=== PATIENT | female | born 1975 | race African-American/Black ===

== ENCOUNTER → 2021-12-25 11:42 | Outpatient (BNVA) | payer OTHER, SELFPAY | PROVIDERS: Visit Provider Surgery | DX: Z13.89 Encounter for screening for other disorder (principal) ==

== ENCOUNTER → 2022-01-01 15:30 | Outpatient (BNVA) | payer OTHER, SELFPAY | PROVIDERS: Visit Provider Counselor Mental Health | DX: F33.1 Major depressive disorder, recurrent, moderate (principal); E66.01 Morbid (severe) obesity due to excess calories | CPT/HCPCS: 90791 ==

== ENCOUNTER 2022-01-07 10:18 | Outpatient (REF) | payer OTHER, SELFPAY ==
--- NOTE | 2022-01-07 10:28 | ECG_ITS ---
Test Reason : E66.01 Blood Pressure : / mmHG Vent. Rate : 085 BPM Atrial Rate : 085 BPM P-R Int : 132 ms QRS Dur : 078 ms QT Int : 400 ms P-R-T Axes : 076 054 070 degrees QTc Int : 476 ms Normal sinus rhythm Cannot rule out Anterior infarct , age undetermined Abnormal ECG No previous ECGs available Referred By: Raymundo Herrera Electronically Signed By:LUIS MATOS MD
[2022-01-07 11:25] LABS: Monocytes Absolute Auto 0.6 X10*3/uL (0.1-1.2); SCAN SMEAR FLAG 1
[2022-01-07 11:28] LABS: Basophils Absolute Auto 0.1 X10*3/uL (0.0-0.2); Eosinophils Absolute Auto 0.2 X10*3/uL (0.0-0.4); Eosinophils Percent Auto 3.1 % (0-4); Hematocrit 30.2 % (37.0-47.0); Hemoglobin 7.5 g/dl (12.0-16.0); Imm Gran Abs Auto 0.02 X10*3/uL (0.00-0.03); Imm Gran Pct Auto 0.4 % (0.0-0.4); Lymphocytes Absolute Auto 1.4 X10*3/uL (1.2-4.9); Lymphocytes Percent Auto 27.6 % (20-40); MANUAL DIFF FLAG SCAN; Mean Corpuscular HGB Conc 24.8 g/dl (31.0-35.0); Mean Corpuscular Hemoglobin 14.2 pg (27.0-33.0); Monocytes Percent Auto 11.8 % (2-11); Neutrophils Absolute Auto 2.9 x10*3/uL (2.0-8.3); Neutrophils Percent Auto 56.1 % (45-73); PLT CLUMP 1; Red Cell Distribution Width 22.5 % (11.0-16.0)
[2022-01-07 11:31] LABS: PLT ABN DIST 1
[2022-01-07 11:44] LABS: Estimated Average Glucose 91 mg/dL; Hemoglobin A1c % 4.8 %
[2022-01-07 11:48] LABS: White Blood Count 4.9 X10*3/uL (4.8-10.8)
[2022-01-07 11:49] LABS: Platelet Count 284 X10*3/uL (160-400)
[2022-01-07 11:51] LABS: SLIDE REVIEW VERIFIED
[2022-01-07 12:00] LABS: Alanine Aminotransferase 10 U/L (0-31); Alkaline Phosphatase 49 U/L (39-117); Anion Gap 11 (12-20); Aspartate Amino Transferase 15 U/L (5-31); Bilirubin Total 0.5 mg/dL (0.0-1.0); Blood Urea Nitrogen 10 mg/dL (9-16); C Reactive Protein 0.56 mg/dL (< or = 0.50); Calcium 8.8 mg/dL (8.4-10.2); Carbon Dioxide 26 mmol/L (22-29); Chloride 107 mmol/L (96-108); Cholesterol 180 mg/dL; Estimated Glomerular Filt Rate > 60; Glucose Random 101 mg/dL (60-115); HDL Cholesterol 44 mg/dL; Iron 16 mcg/dL (30-160); LDL Cholesterol Calculated 126 mg/dl; Percent Iron Saturation 3 % (15-50); Potassium 4.2 mmol/L (3.3-5.1); Sodium 140 mmol/L (135-145); Total Iron Binding Capacity 508 mcg/dL (228-428); Total Protein 7.3 g/dL (6.5-8.0); Triglycerides 53 mg/dL; Unsaturated Iron Binding 492 ug/dL
[2022-01-07 12:24] LABS: Ferritin 4 ng/mL (10-250); Insulin 15 uU/mL (2-29); TSH reflex Free T4 0.92 uIU/mL (0.32-4.0); Vitamin D 25-OH Total 12.6 ng/mL (>30)
[2022-01-07 12:28] LABS: Folate 9.2 ng/mL (> or = 4.0); Vitamin B12 731 pg/mL (200-900)
[2022-01-08 13:57] LABS: Calcium (PTHI) 8.8 mg/dL (8.6-10.2); PTHI 88 pg/mL (16-77)
[2022-01-10 06:22] LABS: Zinc 65 mcg/dL (60-130)
[2022-01-10 17:31] LABS: Vitamin A 30 mcg/dL (38-98)
[2022-01-11 13:06] LABS: Vitamin B1 7 nmol/L (8-30)
== END 2022-01-07 10:19 | disposition home or self-care (01) ==
LOC: HO.LAB 10:18
PROVIDERS: Visit Provider Surgery
DX: Z01.818 Encounter for other preprocedural examination (principal); E66.01 Morbid (severe) obesity due to excess calories
CPT/HCPCS: 36415; 80053; 80061; 82306; 82607; 82728; 82746; 83036; 83525; 83540; 83970; 84425; 84443; 84590; 84630; 85025; 86140; 93005

== ENCOUNTER → 2022-02-04 16:04 | Outpatient (BNVA) | payer OTHER, SELFPAY | PROVIDERS: Visit Provider Dietitian, Registered | DX: E66.01 Morbid (severe) obesity due to excess calories (principal); Z71.3 Dietary counseling and surveillance | CPT/HCPCS: 97802 ==

== ENCOUNTER 2022-02-25 07:59 | Outpatient (REF) | payer OTHER, SELFPAY ==
--- NOTE | ~2022-02-25 | US_ITS ---
EXAMINATION: US COMPLETE ABDOMEN WITH LIVER ELASTOGRAPHY CLINICAL INFORMATION: COMPARISON: None. TECHNIQUE: Real-time imaging of the abdominal viscera. Noninvasive ultrasound liver fibrosis assessment is performed using Terence ElastPQ point quantification shear wave elastography (2D-SWE) with a C5-2 MHz transducer. Multiple elastography samples are obtained. FINDINGS: PANCREAS: Normal. The visualized pancreatic head and body are normal in appearance. The remainder of the pancreas is obscured from visualization by the overlying bowel gas. ABDOMINAL AORTA: The proximal and mid aortic segments are normal in caliber. The distal segment is obscured by overlapping bowel gas. INFERIOR VENA CAVA: Visualized portions are normal. LIVER: The liver demonstrates normal size, contour and generally increased echogenicity. No focal lesion or intrahepatic biliary duct dilatation. The right lobe measures 17.2 cm in length. The left lobe measures 15.9 cm in length. Portal flow is towards the liver (hepatopetal). Shear wave liver elastography median stiffness is 1.5 m/s (reference: normal median stiffness is 1.3 m/s or less). IQR/median stiffness to assess sampling precision is 0.14 (reference: good quality data set is IQR/median stiffness of 0.15 or less). GALLBLADDER: A 7 mm nonmobile polyp is seen.. The gallbladder is physiologically distended without evidence of stones, sludge, polyps, wall thickening or pericholecystic fluid. COMMON BILE DUCT: Normal in caliber measuring 0.3 cm in diameter. RIGHT KIDNEY: Normal. No hydronephrosis. No renal calculi or focal parenchymal lesions. The kidney measures 11.1 cm in maximum dimension. LEFT KIDNEY: Normal. No hydronephrosis. No renal calculi or focal parenchymal lesions. The kidney measures 11.5 cm in maximum dimension. SPLEEN: Normal. The spleen measures 9.1 cm in maximum dimension. FREE FLUID: None. US/US abdomen comp w elastography IMPRESSION: 1. There is borderline hepatomegaly. 2. Liver elastography: In the absence of other known clinical signs, measurements rule out compensated advanced chronic liver disease. If there are known clinical signs, further testing may be needed for confirmation. 3. There is generalized increase in hepatic echotexture, consistent with fatty infiltration or hepatocellular disease. Please correlate clinically. No focal hepatic mass or intrahepatic biliary dilatation is seen. 4. A 7 mm gallbladder polyp is seen. Recommend short-term follow-up ultrasound imaging in 6 months to ensure stability of this finding. REFERENCE: Society of Radiologists in Ultrasound Liver Stiffness Thresholds (2020): LIVER STIFFNESS THRESHOLDS: *Liver Stiffness equal or less than 1.3 m/s: High probability of being normal. *Liver Stiffness less than 1.7 m/s: In the absence of other known clinical signs, rules out compensated advanced chronic liver disease. *Liver Stiffness 1.7-2.1 m/s: Suggestive of compensated advanced chronic liver disease but need further test for confirmation. *Liver Stiffness over 2.1 m/s: Rules in compensated advanced chronic liver disease. *Liver Stiffness over 2.4 m/s: Suggestive of clinically significant portal hypertension. QUALITY OF DATA SET: *IQR/Median value equal or less than 0.15 implies a quality data set. *IQR/Median value over 0.15 implies a poor quality data set. SIGNIFICANT CHANGE FROM PRIOR EXAM: Significant change if liver stiffness measurement is 10% or greater from prior exam. OTHER CONSIDERATIONS: The stage of liver fibrosis may be overestimated in the setting of acute hepatitis, liver inflammation, elevated liver function tests, hepatic vascular congestion, obstructive cholestasis, non-fasting state, and infiltrative diseases such as amyloidosis and lymphoma. In some patients with NAFLD, the liver stiffness thresholds for compensated advanced chronic liver disease may be lower. In causes other than viral hepatitis and NAFLD, liver stiffness thresholds are not well established.
--- NOTE | ~2022-02-25 | FL_ITS ---
EXAMINATION: XR FLUOROSCOPY UPPER GI WITH AIR CLINICAL INFORMATION: Morbid/severe obesity due to excess calories COMPARISON: None TECHNIQUE: Routine upper GI air-contrast study was obtained upright and lying position. FINDINGS: Following oral administration of thick barium and effervescent granules, there is normal propagation bolus from the oral cavity through the pharynx, esophagus into stomach without any evidence of obstruction, narrowing or stricture. On placing patient supine and prone lying, the course, caliber and peristalsis of the esophagus, stomach and the duodenal bulb and the sweep is normal. The mucosal pattern of the stomach and the duodenum is normal. FLUOROSCOPY TIME: 2.3 minutes DOSE AREA PRODUCT: 47.294 uGy-m2 (microgray-meter squared) FL/FL upper GI w air IMPRESSION: Unremarkable upper GI air-contrast study.
== END 2022-02-25 08:00 | disposition home or self-care (01) ==
LOC: HO.US 07:59
PROVIDERS: Visit Provider Surgery
DX: E66.01 Morbid (severe) obesity due to excess calories (principal)
CPT/HCPCS: 74246; 76705; 76981

== ENCOUNTER → 2022-03-11 15:53 | Outpatient (BNVA) | payer OTHER, SELFPAY | PROVIDERS: Referring Provider Surgery; Visit Provider Dietitian, Registered | DX: E66.01 Morbid (severe) obesity due to excess calories (principal); Z71.3 Dietary counseling and surveillance | CPT/HCPCS: 97803 ==

== ENCOUNTER → 2022-03-14 16:45 | Outpatient (BNVA) | payer OTHER, SELFPAY | PROVIDERS: Visit Provider Counselor Mental Health | DX: F33.1 Major depressive disorder, recurrent, moderate (principal); E66.01 Morbid (severe) obesity due to excess calories | CPT/HCPCS: 90832 ==

== ENCOUNTER → 2023-04-12 09:45 | Outpatient (BNV) | payer MEDICAID, SELFPAY | PROVIDERS: PCP Registered Nurse; Visit Provider Radiology Diagnostic Radiology | DX: Z12.31 Encounter for screening mammogram for malignant neoplasm of breast (principal) | CPT/HCPCS: 77063; 77067 ==

== ENCOUNTER 2023-04-12 09:53 | Outpatient (REF) | payer MEDICAID, SELFPAY ==
--- NOTE | ~2023-04-12 | MM_ITS ---
EXAMINATION: MM SCREENING DIGITAL BREAST TOMOSYNTHESIS, BILATERAL CLINICAL INFORMATION: Screening. Asymptomatic. COMPARISON: Mammography: This is a baseline study. TECHNIQUE: Digital breast tomosynthesis is performed in both the craniocaudal and mediolateral oblique views along with computer-aided detection (CAD). Synthesized 2D images are generated from the tomosynthesis. FINDINGS: The breasts are heterogeneously dense, which may obscure small masses (ACR BI-RADS breast composition Category c). There are no significant masses, abnormal calcifications, or other abnormalities. MM/MM tomosynthesis screening BI IMPRESSION: No mammographic evidence of malignancy. ASSESSMENT: BI-RADS BI-RADS 1 - Negative RECOMMENDATION: Routine annual mammography screening. 1 year F/U This examination should not preclude the clinical evaluation of a suspicious palpable abnormality. This patient's information was entered into a reminder system with a target due date for their next mammogram.
== END 2023-04-12 09:54 | disposition home or self-care (01) ==
LOC: HO.MAMMO 09:53
PROVIDERS: PCP Registered Nurse; Visit Provider Registered Nurse
DX: Z12.31 Encounter for screening mammogram for malignant neoplasm of breast (principal)
CPT/HCPCS: 77063; 77067

== ENCOUNTER → 2023-05-22 12:04 | Outpatient (BNVA) | payer MEDICAID, SELFPAY | PROVIDERS: PCP Registered Nurse; Visit Provider Dietitian, Registered | DX: E66.9 Obesity, unspecified (principal) | CPT/HCPCS: 97803 ==

== ENCOUNTER 2023-05-26 13:53 | Outpatient (AMB) | payer MEDICAID, SELFPAY ==
--- NOTE | 2023-05-26 12:46 | A.OFFVIS_ITS ---
Intake VS Expanded 05/26/23 14:06 BP 179/84 H Blood Pressure Location Rt brachial Blood Pressure Position Sitting Pulse 82 Pulse Source Pulse Oximeter Temp 97.1 F Temperature Source Temporal Artery Scan Pulse Oximetry 96 Oxygen Delivery Method Room Air Height 5 ft 3 in Weight 268 lb 9.6 oz BMI 47.6 Body Fat % 44.5 Body Fat Mass 119.4 Fat Free Mass 149.0 Visceral Fat Rating 15.0 Body Water % 39.6 Body Water Mass 106.2 Muscle Mass/Score 141.6 Basal Metabolic Rate/Score 2,095 Intake Visit Reasons: (OV) Re-Establish SWL Allergies No Known Allergies Allergy (Verified 05/26/23 14:03) Medication List - Last Reconciled 05/26/23 by Jaci Mckenna PA-C albuterol sulfate 90 mcg/actuation 2 puffs inhalation Q6H PRN amlodipine 10 mg PO DAILY bupropion HCl 200 mg PO QAM cholecalciferol (vitamin D3) 125 mcg PO DAILY hydroxyzine pamoate 25 - 50 mg PO TID PRN thiamine HCl (vitamin B1) 100 mg PO DAILY vitamin A palmitate 10,000 units PO DAILY HPI HPI Comments History of Present Illness Details 48 yo woman had her PULL WORKER appt shyla Pedraza in December 2021 at 250 lbs. Her only follow up has been with Theresa for visits in January, February and May all in 2022. She has gaiend 18 lbs over this 18 month period. Has BP monitor at home and BP 's are always over 140 - will call PCP for med adjustment New dx of ADI about 7 months ago - uses CPAP ever night. works - from 9a - 3pm , training 5pm- 9pm - Stopped smoking 4-5 months ago. Meal plan: wakes at 8am, bed at 12 MN and 2 am 12 pm - 2 pm - Diet Coke - a total of tw o 20 oz bottles per day until bedtime. today had rice and beans and fried fish. Vegetable s 4d/ week - steamed or boiled snacks twice per day - on chips, cookies, donuts 8 - 9 pm- meat and carbs, and vegetables Also drinks water and raspberry lemonade and pasiion fruit juice. Iced coffee a few days per week - cream and sweetened syrup Exercise plan:none, no equipment at home and no gym access now. Pre op work up completed as follows: SWL classes - ?/8 appts - needs appt RD appts - will need appt in future H pylori - not done yet Labs - December 2021 - SEVERE anemia hgb 7.5, low Vit A, B1 and D. Had iron infuison up to 6 maonths ago, no follow up since then with [facility] Hematology. Saw Educational Diagnostician for heavy menses - CXR - none ECG - abnormal, can not rule anterior [place] ULS and UGI - February 2022 ULS - February 2022 - L 17.2, R 15.9 - hepatomegaly UGI - normal study Contraception- no male sex partners, had BTL Is in process of stool guaic at home, never had colonoscopy. [place] saw GI. [facility] Medical History Back pain Asthma Hypertension Morbid obesity Surgical History History of delivery Family History Mother Graves disease Father Diabetes Social History (Updated 12/25/21 @ 10:52 by Adrianna Ac) Alcohol intake: current Alcohol intake frequency: holidays/special occasions only Patient Tobacco Use Status: Former Tobacco user Quit Date: 2022 Tobacco use type: Cigarette Assessment & Plan Assessment & Plan (1) Morbid obesity: Code(s): E66.01 - Morbid (severe) obesity due to excess calories Plan: This is a 48 yo woman with morbid obesity, ADI and HTN who wants to restart SWL program to prepare for bariatric surgery. Blood work and h pylori have been ordered now, will order more if she continues in the program. She must see PCP for HTN control and LUMP INSPECTOR for control of menses and anemai before progressing in our program. Must have stool guiac checked also. 1. Adequate sleep of 7-8 hours per night discussed -using CPAP every night. No caffeine after 4 pm 2. Healthy meal plan - stop skipping meals and stop all sweetened drinks All meals/MR's need to take 20 minutes to complete coffee - no sugar , whoel milk ok now 12 pm - protein shake with water or UAM 3 pm - protein shake with water or UAM 6 pm- bar 9 pm- dinner of 12 forks lean protein, 12 forks vegetable, 1 serving fruit Exercise - sart with LS 1 mile videos 5 d/ week The importance of avoiding and breast feeding for at least 18 months after bariatric surgery was discussed in the information session and was reinforced today. Pt will purchase body composition analyzer (recommended list given to patient) and weight herself weekly. Next appt with me in 3 weeks. Text me with any questions and weekly weights. Patient is morbidly obese and is not considered stable at this time.?I spent a total of 60 minutes reviewing/updating records, examining the patient and counseling the patient on weight management as detailed above. (2) Sleep apnea with use of continuous positive airway pressure (CPAP): Code(s): G47.30 - Sleep apnea, unspecified (3) Hypertension: Code(s): I10 - Essential (primary) hypertension (4) History of bilateral tubal ligation: Code(s): Z98.51 - Tubal ligation status (5) Former smoker: Code(s): Z87.891 - Personal history of nicotine dependence Orders: Orders IRON PROFILE Today E66.01 - Morbid (severe) obesity due to excess calories, G47.30 - Sleep apnea, unspecified, I10 - Essential (primary) hypertension Complete Blood Count Auto Diff Today E66.01 - Morbid (severe) obesity due to excess calories, G47.30 - Sleep apnea, unspecified, I10 - Essential (primary) hypertension Vitamin B1 Today E66.01 - Morbid (severe) obesity due to excess calories, G47.30 - Sleep apnea, unspecified, I10 - Essential (primary) hypertension Vitamin A Today E66.01 - Morbid (severe) obesity due to excess calories, G47.30 - Sleep apnea, unspecified, I10 - Essential (primary) hypertension C Reactive Protein Today E66.01 - Morbid (severe) obesity due to excess calories, G47.30 - Sleep apnea, unspecified, I10 - Essential (primary) hypertension Ferritin Today E66.01 - Morbid (severe) obesity due to excess calories, G47.30 - Sleep apnea, unspecified, I10 - Essential (primary) hypertension Hemoglobin A1c Today E66.01 - Morbid (severe) obesity due to excess calories, G47.30 - Sleep apnea, unspecified, I10 - Essential (primary) hypertension Insulin Today E66.01 - Morbid (severe) obesity due to excess calories, G47.30 - Sleep apnea, unspecified, I10 - Essential (primary) hypertension Lipid Panel Today E66.01 - Morbid (severe) obesity due to excess calories, G47.30 - Sleep apnea, unspecified, I10 - Essential (primary) hypertension Vitamin B12 and Folate Today E66.01 - Morbid (severe) obesity due to excess carlos ories, G47.30 - Sleep apnea, unspecified, I10 - Essential (primary) hypertension Zinc Today E66.01 - Morbid (severe) obesity due to excess calories, G47.30 - Sleep apnea, unspecified, I10 - Essential (primary) hypertension Comprehensive Met. Panel Today E66.01 - Morbid (severe) obesity due to excess calories, G47.30 - Sleep apnea, unspecified, I10 - Essential (primary) hypertension PTHI Today E66.01 - Morbid (severe) obesity due to excess calories, G47.30 - Sleep apnea, unspecified, I10 - Essential (primary) hypertension TSH reflex Free T4 Today E66.01 - Morbid (severe) obesity due to excess calories, G47.30 - Sleep apnea, unspecified, I10 - Essential (primary) hypertension H Pylori Breath Test Today E66.01 - Morbid (severe) obesity due to excess calories, G47.30 - Sleep apnea, unspecified, I10 - Essential (primary) hypertension Vitamin D 25-OH Total Today E66.01 - Morbid (severe) obesity due to excess calories, G47.30 - Sleep apnea, unspecified, I10 - Essential (primary) hypertension Referrals 2 Behavioral Health Referral E66.01 - Morbid (severe) obesity due to excess calories, G47.30 - Sleep apnea, unspecified, I10 - Essential (primary) hypertension Nutrition/Dietitian Referral E66.01 - Morbid (severe) obesity due to excess calories, G47.30 - Sleep apnea, unspecified, I10 - Essential (primary) hypertension Coding Level of Care Code Est Pt Level 5 (97990) Diagnoses Morbid obesity E66.01 Sleep apnea with use of continuous positive airway pressure (CPAP) G47.30 Hypertension I10 History of bilateral tubal ligation Z98.51 Former smoker Z87.891
[2023-05-26 14:06] VITALS: BP 179/84; PULSE 82; TEMP 36.2; O2SAT 96; BMI 47.6
== END 2023-05-26 14:53 | disposition home or self-care (01) ==
PROVIDERS: PCP Registered Nurse; Visit Provider Physician Assistant
DX: E66.01 Morbid (severe) obesity due to excess calories (principal); Z68.42 Body mass index [BMI] 45.0-49.9, adult; G47.30 Sleep apnea, unspecified; I10 Essential (primary) hypertension
CPT/HCPCS: 99215

== ENCOUNTER 2023-05-26 13:53 | Outpatient (REF) | payer MEDICAID, SELFPAY ==
[2023-05-28 15:24] LABS: H Pylori Breath Test Negative (Negative)
== END 2023-05-26 13:54 | disposition home or self-care (01) ==
LOC: HO.LNP 13:53
PROVIDERS: PCP Registered Nurse; Visit Provider Physician Assistant
DX: E66.01 Morbid (severe) obesity due to excess calories (principal); Z68.42 Body mass index [BMI] 45.0-49.9, adult; G47.30 Sleep apnea, unspecified; I10 Essential (primary) hypertension; Z98.51 Tubal ligation status; Z87.891 Personal history of nicotine dependence; Z11.0 Encounter for screening for intestinal infectious diseases
CPT/HCPCS: 83013; 99211; 99212

== ENCOUNTER 2023-05-29 12:11 | Outpatient (AMB) | payer MEDICAID, SELFPAY ==
--- NOTE | 2023-05-29 12:16 | A.OFFWM_ITS ---
Intake Intake Visit Reasons: VIDEO Intake Allergies No Known Allergies Allergy (Verified 05/26/23 14:03) [facility] Medical History Back pain Asthma Hypertension Morbid obesity Surgical History History of delivery Family History Mother Graves disease Father Diabetes Social History (Updated 05/26/23 @ 14:05 by Kristie Weinberg CMA) Alcohol intake: current Alcohol intake frequency: holidays/special occasions only Patient Tobacco Use Status: Former Tobacco user Quit Date: 2022 Tobacco use type: Cigarette Behavioral Health Assessment Weight Management Therapy Therapy Notes Details Patient returns to [facility] after one year. She reported that she was not ready last year, struggled with depression and having to figure out how to stop smoking cigarettes. She has since quit smoking and started therapy to help address her difficulties. (per previous intake) Pt reported that s he is looking have weight loss surgery to help improve her health and quality of life. Pt reported some years ago while living in [place] she went to therapy for a few sessions as well as brief period of therapy about two years. Pt reported that she has had depression most of her life, often times feeling very low energy, helpless, down, feels bad about herself. She reported one indident as a teenager where she took a bunch of pills and had to be given charcoal in the hospital. She has no reported histoy of drug or alcohol abuse, detox, or rehab admissions. Presenting Concerns Referral Source provider Reason for referral weight loss surgery evaluation Precipitating Event obesity Living Situation Current Living Situation Rent At risk of losing current housing? No Satisfied with current living situation? Yes Comments Pt reported that she has 8 year old twins, then 12 year old son, 15 daughter, 19 year old son, 24 year old son that she lives with. Food/Weight/Diet Expectations of change weight loss, increase in energy History/Relationship with food Patient reported that she eats ice all day and snacks on plantain chips. Pt reported that she eats rice, macaroni and other starches, fried foods, take out frequently, soda drinker but not as frequent as in the past. History/Relationship with weight Pt reported being heavy most of her life since childhood. History/Relationship with dieting keto, Binge Eating Do you frequently eat large amounts of food in short periods of time, not feeling physically hungry? No Do you feel out of control when you eat a large amount of food in a short period of time? No Do you eat large amounts of food rapidly and typically alone? No Night Eating Do you wake up at least once during the night to eat? No If you wake up in the night, do you find that it is necessary to eat something in order to fall back asleep? No Do you have little or no appetite in the morning and feel very hungry in the evening, often overeating between dinner and when you go to bed? No Social History Family history and relationship Pt reported she was born in this area raised by her biological parents and she has two brothers and two sisters. She reported being a single mom and not having any support from her children's father. Parental/Familial truer pinion and wheel obligations children Developmental history and status none Social support mom, sister, and cousin Community support none Mormonism/Spirituality none Cultural/Ethnic information Black Legal Involvement and History Current or historical involvement with the legal system? none Education Preferred learning style Auditory, Verbal, Written, Learn by doing and Visual Currently enrolled in educational program? No Interested in further educational program? 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 No Financial Situation Financial assistance? [employer] and Contributions from your family/friends Service Service? No Mental Health and Addiction Treatment Current/Past substance abuse? No Comments Pt reported recreational and social use of marijuana. Current/Past addictive behavior concerns? No Medical and Physical Health Summary Physical exam in the last year? Yes Pain Screening Current pain? No Pain in the last few months? No Medications Is the patient compliant with medications? Yes Does the patient have Andersen Guardian in place? Not applicable Does the patient use complimentary health approaches? No Trauma/Abuse History History of trauma? No Assessment & Plan Assessment & Plan (1) Major depressive disorder, recurrent, moderate: Code(s): F33.1 - Major depressive disorder, recurrent, moderate (2) Morbid obesity: Code(s): E66.01 - Morbid (severe) obesity due to excess calories Plan Patient has been going to therapy since she was last seen and also stopped smoking. She will be seen in office next. Telehealth Telehealth Location of provider rendering services: other Location of patient: other Patient Identification confirmed using: Name, : Yes Telehealth method: voice only Patient verbally consented to treatment: Yes Patient verbally consented to billing insurance company: Yes Patient informed of any privacy concerns related to visit: Yes Minutes spent on Phone/Video with Pt.: 45 Coding Level of Care Code Tele Psy Diag Eval (26766) Diagnoses Major depressive disorder, recurrent, moderate F33.1 Morbid obesity E66.01 Time Spent (min) 45
== END 2023-05-29 12:21 | disposition home or self-care (01) ==
LOC: HO.HBST 12:11
PROVIDERS: PCP Registered Nurse; Visit Provider Counselor Mental Health
DX: F33.1 Major depressive disorder, recurrent, moderate (principal); E66.01 Morbid (severe) obesity due to excess calories
CPT/HCPCS: 90791

== ENCOUNTER → 2023-05-29 12:11 | Outpatient (BNVA) | payer OTHER, MEDICAID, SELFPAY | PROVIDERS: PCP Registered Nurse; Visit Provider Counselor Mental Health | DX: F33.1 Major depressive disorder, recurrent, moderate (principal); E66.01 Morbid (severe) obesity due to excess calories | CPT/HCPCS: 90791 ==

== ENCOUNTER 2023-09-15 16:43 | Outpatient (REF) | payer OTHER, SELFPAY | END 2023-09-15 16:44 | disposition home or self-care (01) | LOC: HO.HHCL 16:43 | PROVIDERS: Visit Provider Student in an Organized Health Care Education/Training Program | DX: Z13.89 Encounter for screening for other disorder (principal) ==

== ENCOUNTER 2023-11-11 13:02 | Outpatient (REF) | payer MEDICAID, SELFPAY ==
[2023-11-11 16:39] LABS: Red Cell Distribution Width 18.5 % (11.0-16.0)
[2023-11-11 16:41] LABS: Hematocrit 30.5 % (37.0-47.0); Hemoglobin 8.4 g/dl (12.0-16.0); Mean Corpuscular HGB Conc 27.5 g/dl (31.0-35.0); Mean Corpuscular Hemoglobin 17.6 pg (27.0-33.0); Mean Platelet Volume 10.5 fL (9.4-12.3); Platelet Count 328 X10*3/uL (160-400); Red Blood Count 4.76 X10*6/uL (4.20-5.50); White Blood Count 5.9 X10*3/uL (4.8-10.8)
[2023-11-11 16:51] LABS: Estimated Average Glucose 111 mg/dL; Hemoglobin A1c % 5.5 % (<6.0)
[2023-11-11 17:35] LABS: Alanine Aminotransferase 14 U/L (0-31); Albumin Level 3.8 g/dL (3.5-5.0); Alkaline Phosphatase 53 U/L (39-117); Anion Gap 12 (12-20); Aspartate Amino Transferase 19 U/L (5-31); Bilirubin Total 0.2 mg/dL (0.0-1.0); Blood Urea Nitrogen 14 mg/dL (9-16); Calcium 8.8 mg/dL (8.4-10.2); Carbon Dioxide 25 mmol/L (22-29); Chloride 107 mmol/L (96-108); Cholesterol 212 mg/dL (<200); Estimated Glomerular Filt Rate 60; Glucose Random 109 mg/dL (60-115); HDL Cholesterol 45 mg/dL (>40); LDL Cholesterol Calculated 151 mg/dL (<100); Potassium 4.3 mmol/L (3.3-5.1); Sodium 140 mmol/L (135-145); Total Protein 7.7 g/dL (6.5-8.0); Triglycerides 81 mg/dL (<150)
[2023-11-11 17:40] LABS: Mean Corpuscular Volume 64.1 fL (80.0-98.0); PLT ABN DIST 1
[2023-11-11 17:54] LABS: TSH reflex Free T4 0.79 uIU/mL (0.32-4.0); Vitamin D 25-OH Total 16.2 ng/mL (>30)
[2023-11-12 04:05] LABS: Syphilis Screen Nonreactive (Nonreactive)
[2023-11-12 04:21] LABS: HBS Num1 1.94 mIU/mL (0-7.99); HBc Num1 0.15 S/CO (0.00-0.79); HBsAGNum1 0.38 S/CO (0.00-0.99); HIV AB/AG Nonreactive (Nonreactive); HIV Num 1 0.05 S/CO (0.00-0.99); Hepatitis B Core Antibody Nonreactive (Nonreactive); Hepatitis B Surface Antigen Negative (Negative); ~HepC Num1 0.08 S/CO (0.00-0.79); ~Hepatitis B Surface Antibody NONREACTIVE (Nonreactive); ~Hepatitis C Antibody Nonreactive (Nonreactive)
[2023-11-12 10:28] LABS: Iron 18 mcg/dL (30-160); Percent Iron Saturation 5 % (15-50); Total Iron Binding Capacity 386 mcg/dL (228-428); Unsaturated Iron Binding 368 ug/dL
[2023-11-12 10:48] LABS: Ferritin 7 ng/mL (10-250)
== END 2023-11-11 13:03 | disposition home or self-care (01) ==
LOC: HO.HHCL 13:02
PROVIDERS: Visit Provider Student in an Organized Health Care Education/Training Program
DX: Z00.00 Encounter for general adult medical examination without abnormal findings (principal); D55.1 Anemia due to other disorders of glutathione metabolism
CPT/HCPCS: 36415; 80053; 80061; 82306; 82728; 83036; 83540; 84443; 85027; 86704; 86706; 86780; 86803; 87340; 87389

== ENCOUNTER 2023-12-01 15:50 | Outpatient (REF) | payer MEDICAID, SELFPAY ==
--- NOTE | ~2023-12-01 | US_ITS ---
EXAMINATION: US PELVIS CLINICAL INFORMATION: Chronic menorrhagia. 48-year-old, LMP 2 weeks ago COMPARISON: None available. TECHNIQUE: Ultrasound of the pelvis is performed using both transabdominal and transvaginal transducers along with Doppler. Transvaginal imaging is performed due to inadequate visualization transabdominally. FINDINGS: Uterus: The uterus is anteverted and measures 12.0 x 7.4 x 10.0 cm. 2.8 cm subserosal lower uterine segment fibroid. Endometrium is thickened and heterogeneous in appearance measuring up to 2.4 cm with multiple cystic areas. Adnexa: Both ovaries are visualized. There is normal color flow to the adnexa. There is no ovarian torsion. There is no pelvic ascites or fluid collection. Right ovary measures 3.1 x 3.4 x 3.1 cm. Left ovary measures 2.9 x 3.5 x 3.7 cm. 3.7 cm unilocular intraovarian simple cyst. Findings are overwhelmingly likely to represent a benign functional cyst. No followup imaging recommended. US/US pelvic and transvaginal IMPRESSION: * Thickened and heterogeneous endometrium measuring up to 2.4 cm with multiple cystic areas. Recommend further evaluation with sonohysterogram * 2.8 cm subserosal lower uterine segment fibroid. * 3.7 cm unilocular intraovarian simple cyst. Findings are overwhelmingly likely to represent a benign functional cyst. No followup imaging recommended.
== END 2023-12-01 15:51 | disposition home or self-care (01) ==
LOC: HO.US 15:50
PROVIDERS: PCP Student in an Organized Health Care Education/Training Program; Visit Provider Student in an Organized Health Care Education/Training Program
DX: D50.9 Iron deficiency anemia, unspecified (principal)
CPT/HCPCS: 76830; 76856

== ENCOUNTER 2024-01-05 15:18 | Outpatient (REF) | payer MEDICAID, SELFPAY ==
--- NOTE | ~2024-01-05 | US_ITS ---
EXAMINATION: US THYROID CLINICAL INFORMATION: Patient with history of thyroid nodules, needs followup. COMPARISON: None available. TECHNIQUE: Linear transducer mckeon-scale and color Doppler examination with attention to the region of the thyroid. FINDINGS: SIZE: Measurements of the thyroid lobes and nodules are given in sagittal, anteroposterior and transverse dimensions respectively. Right Thyroid Lobe: 6.0 x 2.2 x 2.1 cm, volume 14.5 mL. Parenchyma: The gland echotexture is homogeneous. Thyroid vascularity is normal. Left Thyroid Lobe: 5.2 x 2.6 x 2.0 cm, volume 14.1 mL. Parenchyma: The gland echotexture is homogeneous. Thyroid vascularity is normal. Isthmus: 0.6 cm in maximum AP dimension. Estimated total number of nodules greater than or equal to 1 cm: 2. Sampler And Test Preparer nodules are described as follows: 1. Location: Right mid. Size: 0.9 x 0.4 x 0.6 cm, volume 0.1 mL. Nodule characteristics: Composition: Solid (2). Echogenicity: Hypoechoic (2). Shape: Not taller than wide (0). Margins: Smooth (0). Echogenic Foci: None (0). ACR TI-RADS total points: 4 ACR TI-RADS category: 4 2. Location: Right mid. Size: 1.1 x 0.9 x 0.9 cm, volume 0.4 mL. Nodule characteristics: Composition: Solid (2). Echogenicity: Hypoechoic (2). Shape: Not taller than wide (0). Margins: Smooth (0). Echogenic Foci: None (0). ACR TI-RADS total points: 4 ACR TI-RADS category: 4 3. Location: Left mid. Size: 2.1 x 1.7 x 1.3 cm, volume 2.2 mL. Nodule characteristics: Composition: Solid (2). Echogenicity: Hypoechoic (2). Shape: Taller than wide (3). Margins: Smooth (0). Echogenic Foci: Punctate echogenic foci (3). ACR TI-RADS total points: 10 ACR TI-RADS category: 5 NODES: No lymphadenopathy is seen in the tissue surrounding the thyroid gland. US/US thyroid IMPRESSION: 2.1 cm left TR5 thyroid nodule meets criteria for biopsy. Fine-needle aspiration recommended. This study was presented to me, January 26, 2024, for interpretation. PSA staff will provide results to referring provider at this time. ACR TI-RADS RECOMMENDATION REFERENCE: Ultrasound-guided fine-needle aspiration, followup ultrasound, no further follow up. * TR1 (0 point) and TR2 (2 points): No FNA or follow up. * TR3 (3 points): FNA if more than or equal to 2.5 cm in maximum dimension, followup ultrasound in 1, 3 and 5 years if 1.5 to 2.4 cm in maximum dimension. * TR4 (4-6 points): FNA if more than or equal to 1.5 cm in maximum dimension, followup ultrasound in 1, 2, 3 and 5 years if 1 to 1.4 cm in maximum dimension. * TR5 (more than or equal to 7 points): FNA if more than or equal to 1 cm in maximum dimension, followup ultrasound every year for 5 years if 0.5 to 0.9 cm in maximum dimension. * TR3, TR4 or TR5 nodules that are below the size threshold for followup receive no follow up.
== END 2024-01-05 15:19 | disposition home or self-care (01) ==
LOC: HO.US 15:18
PROVIDERS: PCP Student in an Organized Health Care Education/Training Program; Visit Provider Student in an Organized Health Care Education/Training Program
DX: E04.1 Nontoxic single thyroid nodule (principal)
CPT/HCPCS: 76536

== ENCOUNTER 2024-02-16 12:56 | Outpatient (REF) | payer MEDICAID, SELFPAY ==
--- NOTE | ~2024-02-16 | US_ITS ---
Ultrasound-guided thyroid nodule fine needle aspiration Indication: Left lobe thyroid nodule Procedure: Informed consent was obtained from the patient prior to the procedure. During this process, the procedure and potential alternatives were explained, along with the intended outcome and benefits. The risks of the procedure, as well as the risks of not doing the procedure, were discussed. The patient was given the opportunity to ask questions regarding the procedure and appeared competent to make medical decisions. A signed consent form which documents this discussion was placed in the medical record. A timeout was performed in the room. The patient was placed in a supine position with the neck extended. The left side of the neck and chest was prepped and draped in routine sterile fashion. 1% lidocaine was used as anesthetic. Under real-time ultrasound guidance, a 25-gauge needle was placed into the nodule and aspiration was performed. A total of 3 aspirations were performed. The specimens were placed in CytoLyt and and the Affirma bottle. Postprocedure images showed no hematoma. A Band-Aid was applied to the access site. The patient tolerated the procedure well with no immediate complications. Permanent ultrasound images were archived to the procedure. US/US guided fine needle asp Impression: Left thyroid nodule fine-needle aspiration This procedure was performed by Alexander Mckay PA-C, and directly supervised by Dr. Umaña
== END 2024-02-16 12:57 | disposition home or self-care (01) ==
LOC: HO.US 12:56
PROVIDERS: PCP Student in an Organized Health Care Education/Training Program; Visit Provider Student in an Organized Health Care Education/Training Program
DX: E04.1 Nontoxic single thyroid nodule (principal)
CPT/HCPCS: 10005; 88173; 88305

== ENCOUNTER → 2024-02-16 13:03 | Outpatient (BNV) | payer MEDICAID, SELFPAY | PROVIDERS: PCP Student in an Organized Health Care Education/Training Program; Visit Provider Physician Assistant Surgical | DX: E04.1 Nontoxic single thyroid nodule (principal) | CPT/HCPCS: 10005 ==

== ENCOUNTER 2024-02-17 14:33 | Outpatient (REF) | payer MEDICAID, SELFPAY ==
[2024-02-17 15:44] LABS: Microalbum/Creatinine Ratio Ur 16.6 ug/mg cr (<30)
== END 2024-02-17 14:34 | disposition home or self-care (01) ==
LOC: HO.HHCLNP 14:33
PROVIDERS: Visit Provider Student in an Organized Health Care Education/Training Program
DX: Z00.00 Encounter for general adult medical examination without abnormal findings (principal)
CPT/HCPCS: 82043; 82570

== ENCOUNTER 2024-08-11 19:17 | Outpatient (REF) | payer MEDICAID, SELFPAY ==
[2024-08-12 19:24] LABS: Bacterial Vaginosis PCR POSITIVE (Negative); Candida Group PCR NOT DETECTED (Not Detect); Candida glab krusei PCR NOT DETECTED (Not Detect); Trichomonas vaginalis PCR NOT DETECTED (Not Detect)
== END 2024-08-11 19:18 | disposition home or self-care (01) ==
LOC: HO.LNP 19:17
PROVIDERS: Visit Provider Nurse Practitioner
DX: R82.90 Unspecified abnormal findings in urine (principal)
CPT/HCPCS: 81515

== ENCOUNTER 2024-08-11 19:18 | Outpatient (REF) | payer MEDICAID, SELFPAY ==
[2024-08-12 12:02] LABS: Appearance Urine Cloudy; Color Urine Yellow; Glucose Urine UA Negative (Negative); Leukocyte Esterase Urine Trace (Negative); Nitrite Urine Negative (Negative); UMIC TRIGGER UA YES; Urine Blood Negative (Negative); Urine Ketones Negative (Negative); Urine Protein 30 (1+) mg/dL (Neg-Trace)
[2024-08-12 12:11] LABS: Bacteria Urine 2+ (None Seen); Hyaline Casts Urine 0-2 /LPF (0-2); RBC Urine 0-2 /HPF (0-2)
--- OUTSIDE RECORDS SUMMARY | 2024-08-12 14:01 | XMS_ITS | Encounter Summary ---
Author Organization [employer] Address [address] [place] [address] Care Team Providers Care Manager Dialysis Name Role Phone Silvina Douglas NP Primary Care Provider [phone] Reason for Visit * Reason Comments UTI Encounter Details Date Type Department Care Team ([facility] Contact Info) Description 08/11/2024 6:20 PM EST Office Visit [facility] [address], [place] [id number] Maria D Varela NP [address] [place] [address] Frequent urination (Primary Dx); Abnormal urinalysis; Wheezing; Vaginal discharge Social History Tobacco Use Types Packs/Day Years Used Date Smoking Tobacco: Some Days Cigarettes Passive Smoke Exposure: Current Smokeless Tobacco: Never Comments:Started 15 y of age until now,was able to stop for 9 months , Smoking 6 cig a day ,smoking for 33-will need to calc lung ca screening risk at her 50 y of age Alcohol Use Standard Drinks/Week Comments Yes 0 (1 standard drink = 0.6 oz pure alcohol) Usually on weekends, cognac 4 drinks. Depression Answer Date Recorded Patient Health Questionnaire-9 Score 11/10/2023 Patient Health Questionnaire-9 Score 11/10/2023 Last PHQ-9: Questionnaire Data Not on file 0 11/10/2023 Housing Stability Answer Date Recorded What is your housing situation today? I have brandan simpson 08/11/[address] you li ve. Do you have problems with any of the following? None of the above 08/11/2024 Food Insecurity Answer Date Recorded Within the past 12 months, y ou worried that your food would run out before you got money to buy more: Never True 08/11/2024 Within the past 12 months,th e food you bought just didn't last and you didn't have enough money to get more: Never True Transportation Answer Date Recorded In the past 12 months, has l ack of transportation kept you from medical appts, meetings, work or from getting things needed for daily living? No 05/13/2023 Utilities Answer Date Recorded In the past 12 months, has t he electric, gas, oil or water company threatened to shut off services in your home? Yes 08/11/2024 Depression Answer Date Recorded Patient Health Questionnaire-2 Score 6 11/10/2023 Internet Access Answer Date Recorded Internet Access Q1 Yes 08/11/2024 Internet Access Q2 Not on file 08/11/2024 Comments Unknown Sex and Gender Information Value Date Recorded Sex Assigned at Female 08/07/2022 5:26 PM EST Legal Sex Female 5:22 PM EST Gender Identity Female 08/07/2022 5:26 PM EST Sexual Orientation Straight 08/07/2022 5: 26 PM EST documented as of this encounter Last Filed Vital Signs Vital Sign Reading Time Taken Comments Blood Pressure 136/88 08/11/2024 6:13 PM EST Pulse 88 08/11/2024 6:13 PM EST Temperature 37.2 ??C (99 ??F) 08/11/2024 6:13 PM EST Respiratory Rate 20 08/11/2024 6:13 PM EST Oxygen Saturation - - Inhaled Oxygen Concentration - - Weight 122 kg (269 lb 6.4 oz) 08/11/2024 6:13 PM EST Height 160 cm (5' 3 ) 08/11/2024 6:13 PM EST Body Mass Index 47.72 08/11/2024 6:13 PM EST documented in this encounter Progress Notes * Maria D Varela NP - 08/11/2024 6:20 PM EST SUBJECTIVE: Lizbeth March is a 49 y.o. female who presents to [facility] [place] [facility] a sick visit. Denies recent illness, injury, or hospitalization. HPI Complains of increased urination associated with vaginal pressure. States urine is slightly malodorous urine and she reports whitish vaginal discharge which she does not believe is abnormal. She reports having slight pelvic pain. Denies burning with urination, fever or chills. States she is not sexually active. Review of Systems Constitutional: Negative. Negative for chills and fever. Respiratory: Negative for chest tightness and shortness of breath. Cardiovascular: Negative for chest pain. Gastrointestinal: Negative for abdominal pain, constipation, diarrhea and nausea. Genitourinary: Positive for frequency. Negative for dysuria and flank pain. Musculoskeletal: Negative for arthralgias, back pain, myalgias and neck pain. Skin: Negative. Negative for rash and wound. Neurological: Negative for weakness, light-headedness and headaches. Psychiatric/Behavioral: Negative for behavioral problems, confusion, decreased concentration and suicidal ideas. OBJECTIVE: Visit Vitals BP 136/88 (BP Location: Left arm, Patient Position: Sitting, BP Cuff Size: Large adult) Pulse 88 Temp 99 ??F (37.2 ??C) (Oral) Resp 20 Ht 5' 3 (1.6 m) Wt 269 lb 6.4 oz (122 kg) BMI 47.72 kg/m?? Smoking Status Some Days BSA 2.33 m?? 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 Constitutional: General: She is not in acute distress. Appearance: Normal appearance. She is not ill-appearing. HENT: Head: Normocephalic and atraumatic. Right Ear: External ear normal. Left Ear: External ear normal. Nose: Nose normal. Eyes: General: No scleral icterus. Extraocular Movements: Extraocular movements intact. Cardiovascular: Rate and Rhythm: Normal rate and regular rhythm. Pulses: Normal pulses. Heart sounds: Normal heart sounds. Pulmonary: Effort: Pulmonary effort is normal. No respiratory distress. Breath sounds: Wheezing present. Abdominal: Tenderness: There is no right CVA tenderness or left CVA tenderness. Musculoskeletal: General: Normal range of motion. Cervical back: Normal range of motion. Neurological: General: No focal deficit present. Mental Status: She is alert and oriented to person, place, and time. Gait: Gait normal. Psychiatric: Mood and Affect: Mood normal. Behavior: Behavior normal. Assessment/Plan Diagnoses and all orders for this visit: Frequent urination Comments: -POCT urinalysis negative for nitrites -urine sent out for culture -advised increase water intake -patient re-educated on feminine cleansing techniques Orders: - POCT Urinalysis - Urinalysis Complete; Future Abnormal urinalysis Comments: -POCT UA positive for blood and increased protein -repeat ordered via lab for confirmation -discussed proteinuria as implication of uncontrolled hypertension -f/u with PCP as scheduled for further work up Orders: - Urinalysis Complete; Future - Culture, Urine, Routine Wheezing Comments: -patient notes not using the maintenance inhaler today and continues to smoke -smoking cessation and asthma regimen compliance encouraged Vaginal discharge Comments: -vaginal swab obtained for testing -will treat according to infection type -if BV test positive patient prefers topical treatment. She states metrogel cause her to have yeastinfection also and would like concurrent treatment. -feminine hygiene reviewed -will call with results Orders: - Bacterial Vaginosis documented in this encounter Plan of Treatment Upcoming Encounters Date Type Department Care Team (Late st Contact Info) Description 08/24/2024 11:00 AM EST Office Visit [facility] [address] [place] [address] Silvina Douglas NP [address] [place] [address] Scheduled Orders Name Type Priority Associated Diagnoses Orde r Schedule Bacterial Vaginosis Microbiology Routine Vaginal discharge Ordered: 08/11/2024 Culture, Urine, Routine Microbiology Routine Abnormal urinalysis Ordered: 08/11/2024 documented as of this encounter Procedures Procedure Name Priority Date/Time Associated Diagnosis Comments URINALYSIS, COMPLETE Routine 08/11/2024 7:18 PM EST Frequent urination Abnormal urinalysis POCT URINALYSIS DIPSTICK Routine 08/11/2024 6:50 PM EST Frequent urination documented in this encounter Results * (ABNORMAL) Urinalysis Complete (08/11/2024 7:18 PM EST) Color Urine Yellow [facility] Appearance Urine Cloudy [facility] PH 7.0 5.0 - 9.0 [facility] Glucose Urine UA Negative Negative mg/dL [facility] Urine Blood Negative Negative [facility] Specific [place] - Urine 1.020 1.005 - 1.025 [facility] Urine Protein 30 (1+)(A) Neg-Trace mg/dL [facility] Urine Ketones Negative Negative mg/dL [facility] Nitrite Urine Negative Negative [facility] Leukocyte Esterase Urine Trace(A) Negative [facility] RBC Urine 0-2 0 - 2 /HPF [facility] Urine WBC 11-20(A) 0 - 5 /HPF [facility] Urine Squamous Epithelial Cell 6-10 0 - 2 /HPF [facility] Urine Bacteria 2+ None Seen [facility] Hyaline Casts, Urine 0-2 0 - 2 /LPF [facility] Urine Urine specimen obtained by clean catch procedure / Unknown 08/11/2024 7:18 PM EST 08/12/2024 11:36 AM EST Maria D Varela [employer] [facility] URINE ORDERABLES Final Resu lt [facility] [address] [place] [phone] * (ABNORMAL) POCT Urinalysis (08/11/2024 6:50 PM EST) Color, UA Yellow Clarity, UA Cloudy Glucose, UA Negative Bilirubin, UA Negative Ketones, UA Negative Spec Grav, UA 1.025 Blood, UA Positive(A) Negative, None Detected Comment:trace-intact pH, UA 7.0 Protein, UA Many Comment:30 mg/dl Urobilinogen, UA 0.2 Leukocytes, UA Negative Negative, Rare, Trace Nitrite, UA Negative Negative, None Detected Appearance, UA clear Urine 08/11/2024 6:50 PM EST Maria D Varela [employer] POINT OF CARE TEST ENTER/EDIT O RDERABLES Final Result documented in this encounter Visit Diagnoses Diagnosis Frequent urination- Primary Urinary frequency Abnormal urinalysis Other nonspecific finding on examination of urine Wheezing Vaginal discharge Leukorrhea, not specified as infective documented in this encounter Additional Health Concerns Assessment Noted Time PHQ-9 Depression Total Score: 024 2:46 PM EDT documented as of this encounter Care Teams Manager Dialysis Relationship Specialty Start Date End Date Silvina Douglas NP [address] [place] [phone] PCP - General Family Medicine 06/22/24 documented as of this encounter
--- OUTSIDE RECORDS SUMMARY | 2024-08-12 14:01 | XMS_ITS | Clinical Summary ---
Author Organization [facility] Address [address] [place] [address] Care Team Providers Care Senior Instructional Designer Name Role Phone Unavailable Primary Care Provider Unavailabl e Source Comments PLEASE NOTE, if this patient is a minor, it may be UNLAWFUL to discuss sensitive information that is contained in these records (such as FAMILY PLANNING, MENTAL HEALTH or SUBSTANCE ABUSE) with the minor patient's parent or other person without the patient's specific authorization.[facility] Allergies Active Allergy Reactions Criticality Noted Date Comments Clindamycin Rash 01/26/2019 Patient reports rash Sulfa (Sulfonamide Antibiotics) Other (See Comments) 07/03/2016 Hemolytic anemia (G6PD deficiency Medications * This document contains information received from the source organization and may not represent a complete record from that organization. chlorhexidine (HIBICLENS) 4 % external liquid Apply to entire body during shower and rinse well 4 Active ascorbic acid, vitamin C, (VITAMIN C) 500 mg tabletIndication s:Anemia, unspecified type Take 1 Tab by mouth 2 (two) times daily 90 Tab 2 9 Active ferrous gluconate (FERGON) 324 mg (38 mg iron) tabletIndication s:Anemia, unspecified type Take 1 Tab by mouth once daily with breakfast 30 Tab 3 9 Active tinidazole (TINDAMAX) 500 mg tabletIndication s:BV (bacterial vaginosis) Take 2 Tabs by mouth once daily with breakfast 10 Tab 0 Active albuterol sulfate 90 mcg/actuation inhalerIndicatio ns:Moderate persistent asthma, unspecified whether complicated Inhale 2 Puffs into the lungs every 4 (four) hours as needed for shortness of breath or wheezing 18 g 0 Active blood pressure monitorIndicatio ns:Essential (primary) hypertension Check BP at least once daily 1 Kit 0 Active nicotine, polacrilex, (COMMIT) [address] 1 Lozenge inside cheek as needed for smoking cessation 72 Lozenge 1 1 Active diclofenac sodium (VOLTAREN) 1 % gelIndications:M idline low back pain without sciatica, unspecified chronicity Apply topically 2 (two) times daily as needed for pain 100 g 2 Active diphenhydrAMINE HCL (BENADRYL) 50 mg capsuleIndicatio ns:Folliculitis Take 1 Capsule by mouth every 6 (six) hours as needed for itching 30 Capsule 2 Active mupirocin calcium (BACTROBAN) 2 % creamIndications :Folliculitis Apply topically 3 (three) times daily 30 g 2 Active methocarbamoL (ROBAXIN) 750 mg tabletIndication s:Acute midline low back pain with bilateral sciatica Take 1 Tablet by mouth 3 (three) times daily 30 Tablet 1 2 Active methylPREDNISolo ne (MEDROL DOSPACK) 4 mg tablet packIndications: Acute midline low back pain with bilateral sciatica UAD 1 Packet 2 Active budesonide-formo teroL (SYMBICORT) 160-4.5 mcg/actuation inhalerIndicatio ns:Mild persistent asthma without complication Inhale 2 Puffs into the lungs 2 (two) times daily 10.2 g 3 2 Active ibuprofen 400 mg tabletIndication s:Acute midline low back pain with bilateral sciatica Take 1 Tablet by mouth 3 (three) times daily as needed for pain 90 Tablet 1 2 Active ascorbic acid, vitamin C, (VITAMIN C) 500 mg tabletIndication s: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 (HCC-CMS) Take 1 Tablet by mouth once daily 30 Tablet 2 Active amLODIPine (NORVASC) 5 mg tabletIndication s:Essential (primary) hypertension Take 1 Tablet by mouth once daily 30 Tablet 2 2 Active lisinopriL 20 mg tabletIndication s:Essential (primary) hypertension Take 1 Tablet by mouth once daily 30 Tablet 2 2 Active ferrous sulfate 220 mg (44 mg iron)/5 mL elixIndications: 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 ([facility]) Take 88 mg by mouth 3 (three) times a week 120 mL 2 Active metroNIDAZOLE (METROGEL) 0.75 % (37.5mg/5 gram) vaginal gelIndications:A cute vaginitis Place 1 Applicator vaginally 2 (two) times daily 70 g 2 Active fluconazole (DIFLUCAN) 150 mg tabletIndication s:Acute vaginitis Take one pill for vaginal yeast infection prophylaxis after finishing the 7 day course of vaginal flagyl 1 Tablet 2 Active Active Problems Problem Noted Date Diagnosed Date Tobacco abuse 03/27/2021 Chronic cough 03/27/2021 Menorrhagia with regular cycle 03/27/2021 Class 3 severe obesity due t o excess calories without serious comorbidity with body mass index (BMI) of 45.0 to 49.9 in adult ([facility]) 12/05/2018 Episodic mood disorder ([facility]) 09/25/2017 Trichomonal vaginitis 09/22/2017 Stress incontinence 05/14/2017 Overview (05/14/2017): Per [facility] urology note, Stress incontinence with grade 2 cystocele. Discussed treatment options including using a pessary and surgical correction. Patient would like to consider surgery. Therefore she will return for further evaluation with urodynamic testing. Depression 05/14/2017 Homeless family 01/09/2017 G6PD deficiency 07/03/2016 Assessment & Plan (07/03/2016 2:46 PM EST): Pt completely unaware of this diagnosis (based on testing from 04/2012). Time statement: Greater than 50% of time spent on counseling and education of this disease. Handout from G6PD deficiency association regarding food and medication avoidance as well as overiew provided. Recurrent UTI 04/24/2016 Overview (04/24/2016): 12/08/15 - UTI , Bactrim DS x3d 12/08/15 - Urine cx, calhoun-susceptible 01/24/16 - UTI, Bactrim DS x3d 01/24/16 - Urine cx, Bactrim resistant e coli >100,000 colonies 01/26/16 - D/c Bactrim, begin Macrobid BID x7d 02/08/16 - Pyelonephritis, Cipro 700mg BID x7d 02/08/16 - Urine cx, 30,000 colonies mixed gram positive thuy 02/19/16 - phone note, sxs unresolved s/p Cipro course 02/27/16 - left without being seen, UA w/ trace leuks 02/27/16 - Urine cx, 50,000 colonies mixed gram positive thuy 04/10/16 - UTI, Cipro 500mg BID x7d, referred to nephrology 04/10/16 - Urine cx, Bactrim resistant e coli >100,000 colonies Assessment & Plan (04/24/2016 2:48 PM EDT): Recurrent UTI, sxs never seem to resolve. Longest course of abx pt has received is Cipro 500mg BID x7d. Completed recent 1wk cipro course on 04/18. Sxs did not resolve. Cx w/ bactrim resistant ecoli >100,000 colonies. Pt very agitated today, argumentative, which impeded education/plan discussion. It's possible the 1wk of cipro not sufficient to clear e coli, likely renal involvement though unable to complete exam today. Begin Cipro 500mg BID x14d. Reviewed medication administration and side effects. Urgent urology referral given duration of persistent symptoms. RTC if any worsening/persistent symptoms Screening examination for pulmonary tuberculosis 01/02/2015 Thyroid nodule 12/14/2013 Overview (07/16/2021): 18 mm left sided thyroid nodule seen on MRI done on 11/2013 (done to evaluate parotid lesion) Last Assessment & Plan: She has no compressive symptoms and she is clinically euthyroid. 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 Plan: Continue current treatment regimen Blood pressure will be reassessed at the next regular appointment. Pt NOT taking amlodipine as she didn't feel well. Advised pt to resume medications. High-risk 05/27/2012 Twin 05/27/2012 Contact dermatitis and other eczema 12/05/2011 Abnormal maternal glucose tolerance, complicatin g 11/15/2009 Maternal care for excessive growth 010 Overview (12/23/2015): Large for gestational dates; Excessive growth in 11/09/2009 Nicotine dependence, uncomplicated 09/19/2009 Overview (12/23/2015): Smoker; Iron deficiency anemia 05/08/2009 Personal history of nicotine dependence 05/08/20 09 Overview (12/23/2015): Ex-smoker; BMI 40.0-44.9, adult 03/17/2009 Uncomplicated asthma 05/03/2005 Resolved Problems Problem Noted Date Diagnosed Date Resolved Date SOB (shortness of breath) 08/05/2018 Immunization due 09/05/2017 09/22/2017 Vaginal discharge 01/09/2017 09/13/2018 Encounter for screening 01/09/2017 03/0 11/2017 Encounter for screening for infections with predominantly sexual mode of transmission 01/08/2017 09/13/2018 Pyelonephritis 07/03/2016 09/09/2017 Assessment & Plan (07/03/2016 2:48 PM EST): Renal condition is newly identified. Plan: 1000 mg IM ceftriaxone x 1 now, script for oral cephalosporin x 10d. Keep schedule appt for renal US on Friday. Encouraged pt to reschedule urology appt per nephrology ([facility]) advisement. Renal condition will be reassessed next regular appt in primary care . Viral syndrome 07/03/2016 09/02/2017 Assessment & Plan (07/03/2016 3:04 PM EST): 3d h/o N/V/abdominal pain associated with nasal congestion and cough. Rapid flu negative. As patient has concurrent UTI symptoms and prior flank pain, etiology may be attributed to clinical pyelonephritis. Patient will be treated for above. Dysuria 04/10/2016 04/24/2016 Assessment & Plan (04/10/2016 8:39 PM EDT): Given pt's hx of pyelonephritis and resistance to Bactrim and successful tx with cipro, will treat empirically With cipro, will send urine for culture and will refer to [facility] nephrology for persistent and recurring s/s. Pt left the exam room prior to end of visit stating I've been here too long . Wet prep was done to rule out BV. ANNMARIE was negative. UA was done: leuks +1, blood +1, nitr+1, urobili+1 RTC parameters discussed If fevers, chills, increased flank/back pain-go to ER Education provided to patient. Above instructions reviewed with patient. Patient verbalized an understanding of instructions. Acne 12/19/2015 09/22/2017 Trichomonal vulvovaginitis 09/29/2015 1 Disorder of skin or subcutaneous tissue 09/22/2015 09/13/2018 Encounter for screening for respiratory tuberculosis 01/02/2015 09/09/2017 Candidiasis of vulva and vagina 12/05/2014 04/24/2016 Frequency of micturition 07/07/201411/2015 Follicular disorder 12/20/2013 09/13/19 19 Dermatitis 12/05/2011 09/13/2018 Overview (12/23/2015): [place] Eczema; Probable; Urinary tract infection 05/19/200611/2015 Acute vaginitis 04/10/2006 04/24/2016 Immunizations Name Administration Dates Next Due Hep B, Adult/Adol (ENERGIX/RECOMBIVAX) 9,09/02/2017 Hep B, Unspecified 04/16/2001, 1,04/02/2001,04/02 INFLUENZA, UNSPECIFIED 05/19/2012,2008,05/16/2009,05/28 PNEUMOCOCCAL POLYSACCHARIDE PPV23 08/05/2018 PPD 08/05/2018 TDAP 09/02/2017 Td (adult) unspecified 05/28/2007 Family History Medical History Relation Name Comments Diabetes Father Thyroid Disease Mother Relation Name Status Comments Brother 2 brothers Father Alive Mother Alive Sister 2 sister Social History Tobacco Use Types Packs/Day Years Used Date Smoking Tobacco: Every Day Cigarettes Smokeless Tobacco: Never Tobacco Cessation:Ready to Q uit: No; Counseling Given: No Comments:current every day smoker Alcohol Use Standard Drinks/Week Comments Yes 0 (1 standard drink = 0.6 oz pur e alcohol) weekends Social Connections Answer Date Recorded Connectedness 0 03/25/2024 Financial Resource Strain Answer Date R ecorded Financial Resource Strain 0 2018 Stress Answer Date Recorded Stress 0 2019 Physical Activity Answer Date Recorded Physical Activity 0 2019 Food Insecurity Answer Date Recorded Food 0 04/15/2024 Transportation Needs Answer Date Record ed Transportation 0 2019 Housing Stability Answer Date Recorded Housing 0 2019 Safety and Environment Answer Date Prabhu rded Safety 0 10/23/2021 Utilities Answer Date Recorded Utilities 0 2019 Employment Answer Date Recorded Employment 0 2019 Comments No Sex and Gender Information Value Date Recorded Sex Assigned at Female 09/09/2017 11:36 AM PST Legal Sex Female 1:46 PM PDT Gender Identity Female 01/01/2017 10:17 AM PDT Sexual Orientation Straight 08/05/2018 11 :04 AM PST 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 Not on file Not on yulisa e Last Filed Vital Signs Vital Sign Reading Time Taken Comments Blood Pressure 153/90 11/03/2021 1:43 PM EDT Pulse 62 11/03/2021 1:43 PM EDT Temperature 36.8 ??C (98.3 ??F) 09/28/2021 4:22 PM ES T Respiratory Rate 16 11/03/2021 1:43 PM EDT Oxygen Saturation 99% 07/03/2018 2:11 PM EST Inhaled Oxygen Concentration - - Weight 120.2 kg (265 lb) 09/28/2021 4:22 PM EST Height 160 cm (5' 3 ) 08/14/2020 2:58 PM EST Body Mass Index 46.94 08/14/2020 2:58 PM EST Plan of Treatment Health Maintenance Due Date Last Done Comments HPV Screening 1975 Pap + HPV 1975 Cervical Cancer Screening 06/05/2014 Pap Smear 06/05/2014 06/05/2011 Breast Cancer Screening (Mammogram) 2015 CT Colonography 2020 Colonoscopy 2020 Colorectal Cancer Screening 2020 FIT/gFOBT 2020 Fecal DNA 2020 Flexible Sigmoidoscopy 2020 Lipid Screening 01/08/2022 01/08/2017, 11/04/2013 Tobacco Cessation Counseling (#1) 03/27/2022 03/27/2021, 08/14/2020, 09/22/2017, Additional history exists Tobacco Screening 03/27/2022 03/27/2021, , 09/22/2017, Additional history exists Relationship Safety Screening/Counseling 10/23/2022 10/23/2021, 08/14/2020 Hypertension Screening (#1) 11/03/2022 Diabetes Screening 08/14/2023 08/14/2020, 0 08/14/2020, 08/05/2018, Additional history exists [id number] () 03/21/2024 022 Alcohol and Drug Screen 07/21/2024 10/23/2021, 08/14 Depression Annual Screen 07/21/2024 Imm-DTaP/Tdap/Td (2 - Td or Tdap) 09/02/2027 018, 05/28/2007 Imm-Influenza Discontinued 05/19/2012, 04/21, 05/16/2009, Additional history exists Hepatitis C Screening Completed 11/19/2017 Imm-Hepatitis B Completed 08/05/2018, 08/21, 04/16/2001, Additional history exists HIV Screening Completed 08/14/2020, 07/21, 11/19/2017, Additional history exists Cervical Ablation/Cold-Knife Conization Discontinued Cervical Cryotherapy Discontinued Colposcopy Discontinued Endometrial Biopsy Discontinued Excision/Leep Discontinued HPV Genotyping Discontinued Vaginal Pap Discontinued Vulvoscopy Discontinued Goals Goal Patient Goal Type Associated Problems Recent Progress Patient-Stated? Author Blood Pressure < 140/90 Blood Pressure Essential hypertension 153/90(2021 1:43 PM EDT) No Mariangel Martini, PharmD Procedures Procedure Name Priority Date/Time Associated Diagnosis Comments ANTIBODY HIV-1&HIV-2 SINGLE RESULT Routine 08/14/2020 3:59 PM EST Fatigue, unspecified type COMPREHENSIVE METABOLIC PANEL Routine 08/14/2020 3:59 PM EST Fatigue, unspecified type HEPATITIS C ANTIBODY WITH RFLX TO HCV RNA PCR W/RFLX TO GENOTYPE Routine 11/19/2017 5:19 PM EDT Encounter for screening for infections with predominantly sexual mode of transmission LIPID PANEL Routine 01/08/2017 4:47 PM EDT Encounter for screening CYTP SLIDES CERV/VAG MNL SCRN PHYSICIAN SUPV Routine 06/05/2011 3:00 AM EST from Last 3 Months or Most Recently Relevant to Health Maintenance Results * HIV-1 & HIV-2 ANTIBODIES (08/14/2020 3:59 PM EST) HIV 1 AND 2 ANTIBODY SCREEN NEGATIVE NONREACTIVE [facility] Comment: HIV testing performed at reference lab due to reagent backorder. Test performed at: [facility] [address] [place] [address] Larry Navarrete MD- Help Desk Support Blood Blood / Unknown 08/14/2020 3 :59 PM EST 08/14/2020 7:48 PM EST Narrative [facility] - 08/17/2020 2:04 PM EST [employer], a member of [address] [place] [address] Help Desk Support - Carmina Gill MD PT ID [id number] ORD# [id number] Yomi Ramos MD LAB - BLOOD DRAW Final Resul t [facility] [address] [place] [address], * (ABNORMAL) COMPRE METAB PANEL (08/14/2020 3:59 PM EST) GLUCOSE 82 70 - 100 mg/dL [facility] Comment:Reference range appl icable to fasting specimens only BUN 10 5 - 25 mg/dL [facility] CREAT 0.88 0.5 - 1.1 mg/dL [facility] GLOMERULAR FILTRATION RATE > [address] [facility] Comment: If patient is -Martiniquais, multiply result by 1.21 Chronic Kidney Disease: < 60 ml/min/1.73 square meters Kidney Failure: < 15 ml/min/1.73 square meters SODIUM 137 135 - 145 mEq/L [facility] POTASSIUM 4.2 3.5 - 5.5 mmol/L [facility] CHLORIDE 107 96 - 110 mmol/L [facility] CO2 26 21 - 32 mmol/L [facility] ANION GAP 4 3 - [address] [facility] CALCIUM 8.3(L) 8.5 - 10.5 mg/dL [facility] TOTAL PROTEIN 7.1 6.0 - 8.0 G/dL [facility] ALBUMIN 3.4 3.2 - 5.0 G/dL [facility] BILI, TOTAL 0.4 0.0 - 1.4 mg/dL [facility] SGOT 17 10 - 42 U/L [facility] SGPT 17 10 - 60 U/L [facility] ALK PHOS 54 42 - 121 U/L [facility] Blood Blood / Unknown 08/14/2020 3 :59 PM EST 08/14/2020 7:48 PM EST Narrative [facility] - 08/14/2020 8:21 PM EST [employer], a member of [address] [address] Help Desk Support - Carmina Gill MD PT ID [id number] ORD# [id number] Yomi Ramos MD LAB - BLOOD DRAW Edited Resu lt - Final [facility] [employer] [address], [place] [phone] * HEPATITIS C ANTIBODY WITH RFLX TO HCV RNA PCR W/RFLX TO GENOTYPE (11/19/2017 5:19 PM EDT) HEPATITIS C ANTIBODY NON-REACTI VE NON-REACTI VE [facility] Blood specimen (specimen) Blood / Unknown 11/19/2017 5:19 PM EDT 11/19/2017 8:19 PM EDT Brianna CASTRO LAB - BLOOD DRAW Final Result [facility] [address] [place] [address], [place] [phone] * LIPID PANEL (01/08/2017 4:47 PM EDT) CHOLESTEROL 145 MG/DL [facility] Comment: CHOLESTEROL RISK CLASSIFICATION: <200 MG/DL = LOW RISK, ??200 to 239 MG/DL = BORDERLINE/HIGH RISK, ??>239 MG/DL = HIGH RISK. TRIGLYCERIDE 114 40 - 200 MG/DL [facility] HDL CHOLESTEROL 39 MG/DL [facility] Comment: HDL CHOLESTEROL RISK CLASSIFICATION: ??>55 MG/DL = LOW RISK, ??<35 MG/DL = HIGH RISK. LDL CHOLESTEROL, CALCULATED 83 MG/DL [facility] Comment: LDL CHOLESTEROL RISK CLASSIFICATION: <130 MG/DL = LOW RISK, ??130 to 159 MG/DL = BORDERLINE RISK, ??>159 MG/DL = HIGH RISK. Blood specimen (specimen) Blood / Unknown 01/08/2017 4:47 PM EDT 01/08/2017 6:43 PM EDT Brianna Cardonavitor [facility] LAB - BLOOD DRAW Final Result [facility] [address] [place] [address], [place] [phone] * PAP SMEAR (06/05/2011 3:00 AM EST) PAP SMEAR WNL NO ECC'S HPV NEGATIVE LAB - DATA CONVERSION Comment:Imported from [employer] EHR for health maintenance 06/05/2011 3:00 AM EST us Lexi Provider Default LAB - NO BLOOD DRAW Faye l Result LAB - DATA CONVERSION from Last 3 Months or Most Recently Relevant to Health Maintenance Insurance [facility] [employer]
--- OUTSIDE RECORDS SUMMARY | 2024-08-12 14:01 | XMS_ITS | Encounter Summary ---
Author Organization [employer] Address [address] [place] [address] Care Team Providers Care Master [place] Name Role Phone Silvina Douglas NP Primary Care Provider [phone] Reason for Visit * Reason Onset Date Comments Chart Prep 08/12/2024 Encounter Details Date Type Department Care Team (Late st Contact Info) Description 08/12/2024 Telephone [facility] [address] [place] [address] Hailey Morales MA Chart Prep Social History Tobacco Use Types Packs/Day Years [...] PM EST documented as of this encounter Miscellaneous Notes * Telephone Encounter - Hailey Morales MA - 08/12/2024 1:38 PM EST Chart Prep Labs: done Images: done Vaccines due: Covid Due and Hep A Due Referrals: Sleep Medicine pending appt Screenings: Cervical cancer Overdue care gaps: Sbirt, PHQ-9, and Oral Health documented in this encounter Plan of Treatment Upcoming Encounters Date Type Department Care Team (Late st Contact Info) Description 08/24/2024 11:00 AM EST Office Visit [facility] [address] [place] [address] Silvina Douglas NP [address] [place] [address] documented as of this encounter Visit Diagnoses Not on filedocumented in this encounter Additional Health Concerns Assessment Noted Time PHQ-9 Depression Total Score: 22 024 2:46 PM EDT documented as of this encounter Care Teams Master [place] Relationship Specialty Start Date End Date Silvina Douglas NP [address] [place] [address] PCP - General Family Medicine 06/22/24 documented as of this encounter
--- OUTSIDE RECORDS SUMMARY | 2024-08-12 14:01 | XMS_ITS | Clinical Summary ---
Author Organization [employer] Address [address] [place] [address] 7 [place] [address] Care Team Providers Care Preparation Plant Repairer Name Role Phone Silvina Douglas NP Primary Care Provider [phone] Allergies Active Allergy Reactions Criticality Noted Date Comments Clindamycin Rash Low 01/26/2019 Patient reports rash Metronidazole Rash Low 07/10/2016 metronidazole pt reports itchy rash after taking-- Sulfa Antibiotics Hives,Unknown High 07/03/2016 Hemolytic anemia (G6PD deficiency Hemolytic anemia (G6PD deficiency Sulfamethoxazole-Trimethop rim 11/26/2022 Other reaction(s): 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 3 Active hydrOXYzine pamoate (Vistaril) 25 MG capsule TAKE 1 TO 2 CAPSULES BY MOUTH THREE TIMES DAILY NEEDED FOR ANXIETY OR SLEEP 3 Active cloNIDine (Catapres) 0.1 MG tablet Take 0.1 mg by mouth if needed in the morning and at bedtime. 4 Active albuterol 108 (90 Base) MCG/ACT inhalerIndication s:Cigarette nicotine dependence without complication Inhale 2 puffs every 4 (four) hours if needed for shortness of breath or wheezing. 18 g 3 4 Active nicotine (Nicoderm CQ) 14 MG/24HR patch Place 1 patch on the skin 1 (one) time each day at the same time. 45 patch 4 Active lidocaine (Lidoderm) 5 % patch Apply 1 patch topically Once per day. Remove & discard patch within 12 hours or as directed by MD. 15 patch 4 Active ketoconazole (Nizoral) 2 % shampooIndication s:Folliculitis Apply topically 2 (two) times a week. 120 mL 1 4 Active buPROPion XL (Wellbutrin XL) 300 MG 24 hr tablet Take 300 mg by mouth Once per day. Do not crush, chew, or split. 450 mg a day Active benzoyl peroxide (PanOxyl Foaming Wash) 10 % external washIndications:A cne, unspecified acne type Apply topically 2 times daily. 227 g 1 4 12/22/19 25 Active cholecalciferol (Vitamin D-3) 50 MCG (2000 UT) capsule Take 1 capsule (50 mcg) by mouth Once per day. 90 capsule 1 4 12/22/19 25 Active Incruse Ellipta 62.5 MCG/ACT aerosol powder INHALE 1 PUFF BY MOUTH EVERY 24 HOURS DOSES SHOULD BE TAKEN AT LEAST 24 HOURS APART Active Fluocinolone Acetonide Scalp (Cateechee-Smoothe/FS Scalp) 0.01 % oilIndications:Fo lliculitis Apply 2 times weekly at night 118.28 mL 4 Active hydroCHLOROthiazi de 12.5 MG tablet Take 1 tablet (12.5 mg) by mouth Once per day. 90 tablet 4 06/28/20 25 Active atorvastatin (Lipitor) 10 MG tablet Take 1 tablet (10 mg) by mouth Once per day. 90 tablet 4 06/28/20 25 Active amLODIPine (Norvasc) 10 MG tabletIndications :Essential hypertension Take 1 tablet (10 mg) by mouth Once per day. TAKE 1 TABLET(10 MG) BY MOUTH IN THE MORNING 90 tablet 4 Active nicotine polacrilex (Nicorette) 2 MG gum Chew 1 each (2 mg) if needed in the morning, at noon, in the evening, and at bedtime for smoking cessation. 100 each 4 Active nicotine (Nicoderm CQ) 14 MG/24HR patch Place 1 patch on the skin 1 (one) time each day at the same time. 30 patch 4 Active tretinoin (Retin-A) 0.025 % creamIndications: Acne vulgaris Apply topically at bedtime. 45 g 2 4 08/07/19 25 Active Problems Problem Noted Date Diagnosed Date HLD (hyperlipidemia) 12/22/2023 Prolonged Q-T interval on ECG 12/22/2023 Back pain 11/10/2023 Cholelithiasis 11/10/2023 Onychomycosis 09/16/2023 Chronic obstructive pulmonary disease 04/04/2023 Overview (04/04/2023): Reports recent dx of COPD by pulmonology Treating w/ Symbicort and VILMA PRN for COPD management F/u with Pulmonology Assessment & Plan (04/04/2023 4:20 PM EDT): Stable Using Symbicort daily F/u PRN Acne 04/04/2023 Overview (04/04/2023): Reports full body acne Televisit unable to assess Assessment & Plan (04/04/2023 4:35 PM EDT): Refer to Derm Will Rx Benzoyl peroxide to wash face, chest, and back 1-2 times a day Recommended CeraVe, Cetaphil, or Eucerin cream to prevent worsening dryness Use gentle soaps, unscented RTC 1 month for in person visit if still not seen by Derm and acne continues F/u PRN Health care maintenance 04/04/2023 Overview (04/04/2023): Routine Health Maintenance: Immunizations: HIV: Due Hep C: Non-reactive 12/02/22 Hepatitis B: Due Pap Smear: Unknown last Pap test. Will discuss at followup Mammogram: Never had screening before. Due. Order. Notify results. Educated pt to take ibuprofen before Mammogram since she is concerned about discomfort. BMD: >age 65 Colonoscopy: Per [facility] age 45-75 average risk regular screening with annual fecal test, stool DNA test every 3 years, or visual exam (colonoscopy every [address] colonography every 5 years). DUE. Discussed options. Pt chose cologuard fecal testing. Will order. Lung cancer: Former smoker, quit 1 month ago. Not age 50 yet. May meet criteria in the future for screening Eye: referred [facility] vision 11/26/22 Dental: Discuss next visit Obstructive sleep apnea 08/07/2022 Menorrhagia with regular cycle 03/27/2021 Episodic mood disorder 09/25/2017 Stress incontinence of urine 07/10/2016 Overview (08/07/2022): ICD10 Fall 2017 Code Replacement Per [facility] urology note, Stress incontinence with grade 2 cystocele. Discussed treatment options including using a pessary and surgical correction. Patient would like to consider surgery. Therefore she will return for further evaluation with urodynamic testing. G6PD deficiency 07/03/2016 Overview (08/07/2022): Last Assessment & Plan: Pt completely unaware of this diagnosis (based on testing from 04/2012). Time statement: Greater than 50% of time spent on counseling and education of this disease. Handout from G6PD deficiency association regarding food and medication avoidance as well as overiew provided. 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 Overview (08/07/2022): Deficiency of mucphaz-9-bzbjfybnl dehydrogenase; Abnormal maternal glucose tolerance, complicatin g 11/15/2009 Essential hypertension 11/15/2009 Overview (04/04/2023): Treating with amlodipine 10 mg daily Denies syncope, lightheadedness, JUAN, chest pain, SOB, unilateral weakness Discontinued Olmesartan d/t knee swelling Assessment & Plan (04/04/2023 4:50 PM EDT): Continue amlodipine Unknown what BP is today Asymptomatic Has Home BP monitor Educated pt to check BP daily x 2 weeks, log results F/u 2 wk RN BP check Obesity 11/15/2009 Nicotine dependence, uncomplicated 09/19/2009 Overview (04/04/2023): Successfully quit cigarettes x 4 weeks Taking Chantix since november 2022; completed at least 12 weeks of treatment Also taking Wellbutrin 100 mg daily Assessment & Plan (04/04/2023 4:40 PM EDT): Continue Chantix until November 2023 as long as she is not experiencing side effects Continue Wellbutrin F/u PRN Iron deficiency anemia 05/08/2009 Uncomplicated asthma 05/03/2005 Resolved Problems Problem Noted Date Diagnosed Date Resolved Date Trichomonal vaginitis 09/22/20172022 Contact dermatitis and other eczema 12/05/2011 11/26/2022 Tobacco use disorder 11/15/2009 023 Excessive growth in 11/09/2009 11/26/2022 Maternal care for excessive growth 11/09/2009 11/26/2022 Overview (08/07/2022): Large for gestational dates; Encounters Date Type Department Care Team Description 08/12/2024 Telephone [facility] [address] [place] [phone] Hailey Morales MA Chart Prep 08/11/2024 6:20 PM EST Office Visit [facility] [address] [place] [phone] Maria D Varela NP Frequent urination (Primary Dx); Abnormal urinalysis; Wheezing; Vaginal discharge 08/11/2024 Patient Outreach [facility] [address] [place] [phone] Silvina Douglas NP Care Coordination ([facility] outreach for [facility] utilities and foos - LVM ) 08/11/2024 Patient Outreach [facility] [address] [place] [phone] Silvina Douglas NP Pre-visit Planning (SDOH screeningpositive and tobacco screening positive) 06/26/2024 Refill [facility] [address] [place] [phone] Carmina Colorado MD 06/26/2024 Refill [facility] [address] [place] [phone] Carmina [place] MD Folliculitis; Essential hypertension from Last 3 Months Immunizations Name Administration Dates Next Due Hep B, Unspecified 04/16/2001,04/02/2001 Hep B, adult 08/05/2018,09/02/2017 Influenza injectable quadriv alent preservative free 07/04/2023 Influenza, Unspecified 05/19/2012,05/16/2009,02/2007 Moderna Covid-19 Vaccine 12+ 08/16/2021 PPD Test 08/05/2018 Pneumococcal Conjugate PCV 20 12/22/2023 Pneumococcal Polysaccharide PPSV23 08/05/2018 Td (adult), unspecified 05/28/2007 Tdap 09/02/2017 Family History Medical History Relation Name Comments DM,HTN Father Breast cancer Maternal Grandmother depression, Graves's dx Mother Relation Name Status Comments Father Maternal Grandmother Mother Social History Tobacco Use Types Packs/Day Years Used Date Smoking Tobacco: Some Days Cigarettes Passive Smoke Exposure: Current Smokeless Tobacco: Never Tobacco Cessation:Ready to Q uit: Not Asked Comments:Started 15 y of age until now,was [...] Answer Date Recorded Patient Health Questionnaire-9 Score 22 11/10/2023 Patient Health Questionnaire-9 Score 22 11/10/2023 Last PHQ-9: Questionnaire Data Not on file 0 11/10/2023 Housing Stability Answer Date Recorded What is your housing situation today? I have brnadan simpson 08/11/[address] you [...] Orientation Straight 08/07/2022 5: 26 PM EST Last Filed Vital Signs Vital Sign Reading Time Taken Comments Blood Pressure 136/88 08/11/2024 6:13 PM EST Pulse 88 08/11/2024 6:13 PM EST Temperature 37.2 ??C (99 ??F) 08/11/2024 6:13 PM EST Respiratory Rate 20 08/11/2024 6:13 PM EST Oxygen Saturation 97% 02/17/2024 10:38 AM EDT Inhaled Oxygen Concentration - - Weight 122 kg (269 lb 6.4 oz) 08/11/2024 6:13 PM EST Height 160 cm (5' 3 ) 08/11/2024 6:13 PM EST Body Mass Index 47.72 08/11/2024 6:13 PM EST Plan of Treatment Upcoming Encounters Date Type Department Care Team (Late st Contact Info) Description 08/24/2024 11:00 AM EST Office Visit [facility] [address] [place] [address] Silvina Douglas NP [address] [place], [place] [phone] Health Maintenance Due Date Last Done Comments CT Colonography 1975 Colonoscopy 1975 FIT 1975 FOBT 1975 Sigmoidoscopy 1975 Alcohol/Substance Use Screening 1987 Family Planning (PISQ) 1990 Hepatitis A Vaccines (1 of 2 - Risk 2-dose series) 1994 Pap Smear 1996 Cervical Cancer Screening 2005 HPV/Cotest 2005 COVID-19 Vaccine ( season) 2024 07/10/2022, 08/16/2021 Depression Monitoring (PHQ-9) 05/11/2024 11/10/2023, 11/10/2023 Depression Screening 11/09/2024 11/10/2023, 11/10/19 24 Tobacco Screening 12/21/2024 12/22/2023 Zoster Vaccines (1 of 2) 2025 Mammogram 04/12/2025 04/12/2023, 04/12/2023 SDOH Screening 08/11/2025 08/11/2024 Colorectal Cancer Screening 06/26/2026 FIT DNA/Cologuard 06/26/2026 06/26/2023 DTaP/Tdap/Td Vaccines (2 - Td or Tdap) 09/02/2027 09/02/2017, 05/28/2007 Lipid Panel 11/10/2028 11/11/2023, 12/02/2022 RSV Patients and Patients Aged 60 years or older (1 - 1-dose 75+ series) 2050 Hepatitis B Vaccines Completed 08/05/2018, 09/02/2017, 04/16/2001, Additional history exists HIV Screening Completed 11/11/2023 Hepatitis C Screening Completed 11/11/2023, 023 Pneumococcal Vaccine: Pediatrics (0 to 5 Years) and At-Risk Patients (6 to 64 Years) Completed 12/22/2023, 08/05/2018 Influenza Vaccine Completed 05/19/2024, , 05/19/2012, Additional history exists HIB Vaccines Aged Out No longer eligi ble based on patient's age to complete this topic HPV Vaccines Aged Out No longer eligi ble based on patient's age to complete this topic IPV Vaccines Aged Out No longer eligi ble based on patient's age to complete this topic Meningococcal Vaccine Aged Out No gilmar alvaro eligible based on patient's age to complete this topic RSV under 20 months Aged Out No longe r eligible based on patient's age to complete this topic Rotavirus Vaccines Aged Out No longer eligible based on patient's age to complete this topic Procedures Procedure Name Priority Date/Time Associated Diagnosis Comments URINALYSIS, COMPLETE Routine 08/11/2024 7:18 PM EST Frequent urination Abnormal urinalysis POCT URINALYSIS DIPSTICK Routine 08/11/2024 6:50 PM EST Frequent urination HEPATITIS C AB W/REFL TO HCV RNA, QN, PCR Routine 11/11/2023 1:05 PM EDT Annual physical exam HIV 1/2 ANTIGEN/ANTIBODY, FOURTH GENERATION W/RFL Routine 11/11/2023 1:05 PM EDT Annual physical exam LIPID PANEL, STANDARD Routine 11/11/2023 1:05 PM EDT Annual physical exam LAB COLOGUARD?? COLON CANCER SCREEN Routine 06/26/2023 9:50 PM EST Encounter for screening for malignant neoplasm of colon BI MAMMOGRAM SCREENING TOMOSYNTHESIS BILATERAL Routine 04/12/2023 10:11 AM EDT from Last 3 Months or Most Recently Relevant to Health Maintenance Results * (ABNORMAL) Urinalysis Complete (08/11/2024 7:18 PM EST) Color Urine Yellow [facility] Appearance Urine Cloudy [facility] PH 7.0 5.0 - 9.0 [facility] Glucose Urine UA Negative Negative mg/dL [facility] Urine Blood Negative Negative [facility] Specific [place] - Urine 1.020 1.005 - 1.025 [facility] Urine Protein 30 (1+)(A) Neg-Trace mg/dL [facility] Urine Ketones Negative Negative mg/dL [facility] Nitrite Urine Negative Negative [facility] Leukocyte Esterase Urine Trace(A) Negative [facility] RBC Urine 0-2 0 - 2 /HPF [facility] Urine WBC 11-20(A) 0 - 5 /HPF [facility] Urine Squamous Epithelial Cell 6-10 0 - 2 /HPF [facility] Urine Bacteria 2+ None Seen [facility] Hyaline Casts, Urine 0-2 0 - 2 /LPF [facility] Urine Urine specimen obtained by clean catch procedure / Unknown 08/11/2024 7:18 PM EST 08/12/2024 11:36 AM EST Maria D Varela NP LAB URINE ORDERABLES Final Resu lt [facility] [address] [place] [phone] * (ABNORMAL) POCT Urinalysis (08/11/2024 6:50 [...] 08/11/2024 6:50 PM EST Maria D Varela NP POINT OF CARE TEST ENTER/EDIT O RDERABLES Final Result * Hepatitis C Antibody with Reflex to HCV, RNA, Quantitative, Real-Time PCR (11/11/2023 1:05 PM EDT) Hepatitis C Antibody Nonreactive Nonreactive [facility] Comment:Antibodies to HCV no t detected; does not exclude early acuteHCV infection. Blood Venous blood specimen / Unknown 11/11/2023 1:05 PM EDT 11/11/2023 4:02 PM EDT Carmina Quiroga MD LAB BLOOD ORDERAB LES Final Result [facility] [address] [place] [phone] * HIV-1/2 Antigen and Antibodies, Fourth Generation, with Reflexes (11/11/2023 1:05 PM EDT) Pathologist [facility] HIV AB/AG Nonreactive Nonreactive [facility] Comment:HIV-1 p24 Ag and/or HIV-1/HIV-2 Ab not detected.A test result that is nonreactive does not exclude thepossibility of exposure to or infection with HIV-1 and/orHIV-2. Nonreactive results in this assay for individualswith prior exposure to HIV-1 and/or HIV-2 may be due toantigen and antibody levels that are below the limit ofdetection of this assay.The LevelUp HIV Ag/Ab Combo assay result andsupplemental assay results should be interpreted inconjunction with the patient's clinical presentation,history and other laboratory results. If the results areinconsistent with clinical evidence, additional testing issuggested to confirm the result. Blood Venous blood specimen / Unknown 11/11/2023 1:05 PM EDT 11/11/2023 4:02 PM EDT us Carmina Quiroga MD LAB BLOOD ORDERAB LES Final Result Performing Organization Address [facility]/ZIP Co de Phone Number [facility] [address] [place] [phone] * (ABNORMAL) Lipid Panel, Standard (11/11/2023 1:05 PM EDT) Triglycerides 81 <150 mg/dL [facility] Comment:Desirable Triglyceri de: less than 150 mg/dLBorderline High Triglyceride 150-199 mg/dLHigh Triglyceride: 200-499 mg/dLVery High Triglyceride: greater than or equal to 5OO mg/dL Cholesterol 212(H) <200 mg/dL [facility] Comment:Desirable Cholestero l: less than 200 mg/dLBorderline High Cholesterol: 200-239 mg/dLHigh Cholesterol: greater than 239 mg/dL LDL Cholesterol Calculated 151(H) <100 mg/dL [facility] Comment:Desirable LDL: less than 100 mg/dLNear Optimal/Above Optimal LDL: 110- 129 mg/dLBorderline High LDL: 130-159 mg/dLHigh LDL: 160-189 mg/dLVery High LDL: greater than or equal to 190 mg/dL HDL Cholesterol 45 >40 mg/dL [facility] Comment:Desirable HDL: great er than 40 mg/dL Note: This HDL assay may give artificially low results in patients with liver disease. Blood Venous blood specimen / Unknown 11/11/2023 1:05 PM EDT 11/11/2023 4:02 PM EDT us Carmina Quiroga MD LAB BLOOD ORDERAB LES Final Result Performing Organization Address City/[facility]/ZIP Co de Phone Number [facility] [address] [place] [phone] * Cologuard?? colon cancer screening (06/26/2023 9:50 PM EST) Cologuard Result Negative Negative 07/05/20 23 1:05 AM [facility] (CLIA #:[id number]) Comment: NEGATIVE TEST RESULT. A negative Cologuard result indicates a low likelihood that a colorectal cancer (CRC) or advanced adenoma (adenomatous polyps with more advanced pre-malignant features) ??is present. The chance that a person with a negative Cologuard test has a colorectal cancer is less than 1 in 1500 (negative predictive value >99.9%) or has an ??advanced adenoma is less than ??5.3% (negative predictive value 94.7%). These data are based on a prospective cross-sectional study of 10,000 individuals at average risk for colorectal cancer who were screened with both Cologuard and colonoscopy. (Brenda Fatima et al, N Engl J Med 2014;370(14):1286- 1297) The normal value (reference range) for this assay is negative. COLOGUARD RE-SCREENING RECOMMENDATION: Periodic colorectal cancer screening is an important part of preventive healthcare for asymptomatic individuals at average risk for colorectal cancer. ??Following a negative Cologuard result, the [place] [employer] and U.S. Multi-Society Task Force screening guidelines recommend a Cologuard re-screening interval of 3 years. References: [place] [employer] Guideline for Colorectal Cancer Screening: https://www.cancer.org/cancer/wlqki-uwbrff-blmkyz/kjeiemvzz-bpbudrpxu-dxkoycs/ac s-rec ommendations.html.; John DK, Beronica CR, Delonte DanielsonK, Colorectal Cancer Screening: Recommendations for Physicians and Patients from the U.S. Multi-Society Task Force on Colorectal Cancer Screening , Am J Gastroenterology 2017; 112:6138-3996. TEST DESCRIPTION: Composite algorithmic analysis of stool DNA-biomarkers with hemoglobin immunoassay. ?? Quantitative values of individual biomarkers are not reportable and are not associated with individual biomarker result reference ranges. Cologuard is intended for colorectal cancer screening of adults of either sex, 45 years or older, who are at average-risk for colorectal cancer (CRC). Cologuard has been approved for use by the U.S. FDA. The performance of Cologuard was established in a cross sectional study of average-risk adults aged 50-84. Cologuard performance in patients ages 45 to 49 years was estimated by sub-group analysis of near-age groups. Colonoscopies performed for a positive result may find as the most clinically significant lesion: colorectal cancer [4.0%], advanced adenoma (including sessile serrated polyps greater than or equal to 1cm diameter) [20%] or non- advanced adenoma [31%]; or no colorectal neoplasia [45%]. These estimates are derived from a prospective cross-sectional screening study of 10,000 individuals at average risk for colorectal cancer who were screened with both Cologuard and colonoscopy. (Brenda Hazel al, N Engl J Med 2014;370(14):4772-7644.) Cologuard may produce a false negative or false positive result (no colorectal cancer or precancerous polyp present at colonoscopy follow up). A negative Cologuard test result does not guarantee the absence of CRC or advanced adenoma (pre-cancer). The current Cologuard screening interval is every 3 years. ([place] [employer] and U.S. Multi-Society Task Force). Cologuard performance data in a 10,000 patient pivotal study using colonoscopy as the reference method can be accessed at the following location: www.[employer]ic[employer]/results. Additional description of the Cologuard test process, warnings and precautions can be found at www.[employer].Investicare. Stool specimen (specimen) Rectal contents / Unknown 06/26/2023 9:50 PM EST 06/28/2023 4:06 PM EST Rosa Santos [facility] MOLECULAR DIAGNOSTICS ORDERABLES Final Result [facility] (CLIA #:[id number]) [address] [place] [address], * BI Mammogram Screening Tomosynthesis Bilateral (04/12/2023 10:11 AM EDT) Anatomical Region Laterality Modality Breast Bilateral Mammography 04/12/2023 10:1 1 AM EDT Narrative 04/19/2023 9:57 PM EDT ? [facility] ? [address] ?[place] [address] ? Mammography Report ? Signed ? Patient: Joaquim,Lizbeth ?MR#: [id number] ?? 8 ? : 1975 ?Acct:[id number] ? Age/Sex: 48 / F ?ADM Date: 04/12/23 ? Loc: HO.MAMMO ? Attending Dr: Rosa Santos OPERATIONAL RISK MANAGER ? Ordering Physician: Rosa Santos OPERATIONAL RISK MANAGER ?Results: 1N ?? egative ? Date of Service: 04/12/23 ?Follow Up: 1 Year From Orig ?? inal Mammogram ? Procedure(s): MM tomosynthesis screening BI ?? Accession Number(s): [id number] ? cc: Rosa Santos OPERATIONAL RISK MANAGER ? EXAMINATION: ?? MM SCREENING DIGITAL BREAST TOMOSYNTHESIS, BILATERAL ? CLINICAL INFORMATION: ? Screening. Asymptomatic. ? COMPARISON: ?? Mammography: This is a baseline study. ? TECHNIQUE: ?? Digital breast tomosynthesis is performed in both the craniocaudal and ?? mediolateral oblique views along with computer-aided detection (CAD). ?? Synthesized 2D images are generated from the tomosynthesis. ? FINDINGS: ?? The breasts are heterogeneously dense, which may obscure small masses ?? (ACR BI-RADS breast composition Category c). ? There are no significant masses, abnormal calcifications, or other ?? abnormalities. ? MM/MM tomosynthesis screening BI ?? IMPRESSION: ?? No mammographic evidence of malignancy. ? ASSESSMENT: ? BI-RADS BI-RADS 1 - Negative ? RECOMMENDATION: ?? Routine annual mammography screening. ? 1 year F/U ? This examination should not preclude the clinical evaluation of a ?? suspicious palpable abnormality. ? This patient's information was entered into a reminder system with a ?? target due date for their next mammogram. ? Dictated By: ?Edelmira Mason MD ? Signed By: ?<Electronically signed by Edelmira Mason MD in OV> ? 04/19/ 2153 ? DD/ 1011 ? TD/TT: ? Home Weatherizing Worker: ? Procedure Note Ivan, Zahraa - [facility] [address] [place] [address] Mammography Report Signed Patient: Sade March#: [id number] 8 : 1975Acct:[id number] Age/Sex: 48 / FADM Date: 04/12/23 Loc: HO.MAMMO Attending Dr: Rosa Santos OPERATIONAL RISK MANAGER Ordering Physician: Rosa Santos FNPResults: 1N egative Date of Service: 04/12/23Follow Up: 1 Year From Orig inal Mammogram Procedure(s): MM tomosynthesis screening BI Accession Number(s): [id number] cc: Rosa Santos OPERATIONAL RISK MANAGER EXAMINATION: MM SCREENING DIGITAL BREAST TOMOSYNTHESIS, BILATERAL CLINICAL INFORMATION: Screening. Asymptomatic. COMPARISON: Mammography: This is a baseline study. TECHNIQUE: Digital breast tomosynthesis is performed in both the craniocaudal and mediolateral oblique views along with computer-aided detection (CAD). Synthesized 2D images are generated from the tomosynthesis. FINDINGS: The breasts are heterogeneously dense, which may obscure small masses (ACR BI-RADS breast composition Category c). There are no significant masses, abnormal calcifications, or other abnormalities. MM/MM tomosynthesis screening BI IMPRESSION: No mammographic evidence of malignancy. ASSESSMENT: BI-RADS BI-RADS 1 - Negative RECOMMENDATION: Routine annual mammography screening. 1 year F/U This examination should not preclude the clinical evaluation of a suspicious palpable abnormality. This patient's information was entered into a reminder system with a target due date for their next mammogram. Dictated By: Edlemira Mason MD Signed By: <Electronically signed by Edelmira Mason MD in OV> 04/19/23 2153 DD/ 1011 TD/TT: Home Weatherizing Worker: us Rosa Santos OPERATIONAL RISK MANAGER IMG BI PROCEDURES Edited R esult - Final from Last 3 Months or Most Recently Relevant to Health Maintenance Insurance Care Teams Preparation Plant Repairer Relationship Specialty Start Date End Date Silvina Douglas NP [address] [place] [id number] PCP - General Family Medicine 06/22/24
--- OUTSIDE RECORDS SUMMARY | 2024-08-12 14:01 | XMS_ITS | Encounter Summary ---
Author Organization [employer] Address [address] [facility] 7t [place] [address] Care Team Providers Care Delinquent Tax Collection Assistant Name Role Phone Silvina Douglas NP Primary Care Provider [phone] Reason for Visit * Reason Comments Pre-visit Planning SDOH screeningpositi ve and tobacco screening positive Encounter Details Date Type Department Care Team (Latest Contact Info) Description 08/11/2024 Patient Outreach [facility] MEDICINE [address] [place] [address] Silvina Douglas NP [address] [place] [address] Pre-visit Planning (SDOH screeningpositive and tobacco screening positive) Social History Tobacco Use Types Packs/Day Years [...] PM EST documented as of this encounter Progress Notes * Shamika Sanchez - 08/11/2024 1:43 PM EST DANIELLE Wick placed successful outbound call to patient for pre-visit planning. Patient name and confirmed. Patient confirms appt date and time, and has transportation arrangements. Biggest concern for appointment at this time is none Appropriate screening completed in anticipation of appointment.Patient advised to bring to appointment a photo id and insurance card, SDMI positive. Patient looking for assistance with utilities serivce shut off noticed received for electric and gas Referral will be placed. documented in this encounter Plan of Treatment Upcoming Encounters Date Type Department Care Team ([facility] st Contact Info) Description 08/24/2024 11:00 AM EST Office Visit [facility] MEDICINE [address] [place] [address] Silvina Douglas NP [address] [place] [address] documented as of this encounter Visit Diagnoses Not on filedocumented in this encounter Additional Health Concerns Assessment Noted Time PHQ-9 Depression Total Score: 22 024 2:46 PM EDT documented as of this encounter Care Teams Delinquent Tax Collection Assistant Relationship Specialty Start Date End Date Silvina Douglas NP [address] [place] [address] PCP - General Family Medicine 06/22/24 documented as of this encounter
--- OUTSIDE RECORDS SUMMARY | 2024-08-12 14:01 | XMS_ITS | Encounter Summary ---
Author Organization [employer] Address [address] [place] [address] 7 [place] [address] Care Team Providers Care Windows Systems Architect Name Role Phone Silvina Douglas NP Primary Care Provider [phone] Reason for Visit * Reason Comments Med Refill Encounter Details Date Type Department Care Team ([facility] st Contact Info) Description 06/26/2024 Refill [facility] MEDICINE [address] [place], [place] [phone] Carmina Colorado MD [address] [place] [address] Social History Tobacco Use Types Packs/Day Years [...] housing situation today? I have brandan simpson 10/30/[address] you li ve. Do you have problems with any of the following? Pests such as bugs, ants, or mice 10/30/2023 Food Insecurity Answer Date Recorded Within the past 12 months, y ou worried that your food would run out before you got money to buy more: Often true 10/30/2023 Within the past 12 months,th e food you bought just didn't last and you didn't have enough money to get more: Often true 05/2024 Transportation Answer Date Recorded In the past 12 months, has l ack of transportation kept you from medical appts, meetings, work or from getting things needed for daily living? No 05/13/2023 Utilities Answer Date Recorded In the past 12 months, has t he electric, gas, oil or water company threatened to shut off services in your home? No 05/13/2023 Depression Answer Date Recorded Patient Health Questionnaire-2 Score 6 11/10/2023 Comments Unknown Sex and Gender Information Value Date Recorded Sex Assigned at Female 08/07/2022 5:26 PM EST Legal Sex Female 5:22 PM EST Gender Identity Female 08/07/2022 5:26 PM EST Sexual Orientation Straight 08/07/2022 5: 26 PM EST documented as of this encounter Plan of Treatment Upcoming Encounters Date Type Department Care Team (Late st Contact Info) Description 08/24/2024 11:00 AM EST Office Visit [facility] MEDICINE [address] [place] [address] Silvina Douglas NP [address] [place] [address] documented as of this encounter Visit Diagnoses Not on filedocumented in this encounter Additional Health Concerns Assessment Noted Time PHQ-9 Depression Total Score: 22 024 2:46 PM EDT documented as of this encounter Care Teams Windows Systems Architect Relationship Specialty Start Date End Date Silvina Douglas NP [address] [place] [address] PCP - General Family Medicine 06/22/24 documented as of this encounter
--- OUTSIDE RECORDS SUMMARY | 2024-08-12 14:01 | XMS_ITS | Encounter Summary ---
Author Organization [employer] Address [address] [facility] 7t [place] [address] Care Team Providers Care Business Technology Analyst Name Role Phone Silvina Douglas NP Primary Care Provider Reason for Visit * Reason Comments Care Coordination CHW outreach for SDO H utilities and foos - LVM Encounter Details Date Type Department Care Team (Latest Contact Info) Description 08/11/2024 Patient Outreach [facility] PEDIATRICS [address] [place] [address] Silvina Douglas NP [address] [place] [address] Care Coordination (CHW outreach for SDOH utilities and foos - LVM ) Social History Tobacco Use Types Packs/Day Years [...] as of this encounter Progress Notes * Tomer Frias - 08/11/2024 2:34 PM EST CHW Tomer Frias, placed outbound call to patient for assistance with SDOH as a referral was placed by the provider. Patient had screened positive for the following SDOH insecurities. No answer atthis time. Patient's name and were not confirmed. CHW left detailed message and provided contact information requesting return call for assistance. Patient educated on extended clinic hours on Mondays through Wednesdays, and Walk-In Urgent Care Located in [facility]. Patient provided with after-hours line for [facility], , which offer night time triage service and option to transfer toon call provider if needed. documented in this encounter Plan of Treatment Upcoming Encounters Date Type Department Care Team (Late st Contact Info) Description 08/24/2024 11:00 AM EST Office Visit [facility] MEDICINE [address] [place] [address] Silvina Douglas NP [address] [place] [address] documented as of this encounter Visit Diagnoses Not on filedocumented in this encounter Additional Health Concerns Assessment Noted Time PHQ-9 Depression Total Score: 22 024 2:46 PM EDT documented as of this encounter Care Teams Business Technology Analyst Relationship Specialty Start Date End Date Silvina Douglas NP [address] [place] [address] PCP - General Family Medicine 06/22/24 documented as of this encounter
--- OUTSIDE RECORDS SUMMARY | 2024-08-12 14:02 | XMS_ITS | Clinical Summary ---
Author Organization [facility] Address [address] [place] [address] Care Team Providers Care Awning Hanger Helper Name Role Phone Unavailable Primary Care Provider Unavailabl e Social History Tobacco Use Types Packs/Day Years Used Date Smoking Tobacco: Never Assessed Sex and Gender Information Value Date Recorded Sex Assigned at Not on file Gender Identity Not on file Sexual Orientation Not on file Plan of Treatment Health Maintenance Due Date Last Done Comments Breast Cancer Screening 1975 DTaP,Tdap,and Td Vaccines (1 - Tdap) 1994 Hepatitis B Vaccines (1 of 3 - 19+ 3-dose series) 1994 Cervical Cancer Screening: P ap Smear 1996 COVID-19 Vaccine (2023-2 5 season) 2024 Influenza Vaccine (#1) 2024 Colorectal Cancer Screening: Colonoscopy 04/28/2024 Depression Screening 04/28/2024 HIV Screening 04/28/2024 Hepatitis C Screening 04/28/2024 Social Influencers of Health Screening 04/28/2024 HIB Vaccines Aged Out No longer eligi ble based on patient's age to complete this topic HPV Vaccines Aged Out No longer eligi ble based on patient's age to complete this topic Hepatitis A Vaccines Aged Out No long er eligible based on patient's age to complete this topic IPV Vaccines Aged Out No longer eligi ble based on patient's age to complete this topic MMR Vaccines Aged Out No longer eligi ble based on patient's age to complete this topic Meningococcal ACWY Vaccine Aged Out N o longer eligible based on patient's age to complete this topic Pneumococcal Vaccine: Pediat rics (0 to 5 Years) and At-Risk Patients (6 to 64 Years) Aged Out No longer eligible b ased on patient's age to complete this topic RSV Immunization Patients Un caprice 20 months Aged Out No longer eligible b ased on patient's age to complete this topic Varicella Vaccines Aged Out No longer eligible based on patient's age to complete this topic
--- OUTSIDE RECORDS SUMMARY | 2024-08-12 14:02 | XMS_ITS | Encounter Summary ---
Author Organization [employer] Address [address] [place] [address] 7 [place] [address] Care Team Providers Care Telephone Operator Chief Name Role Phone Carmina Colorado MD Primary Care Pro vider Silvina Douglas NP Primary Care Provider [phone] Reason for Visit * Reason Comments Med Refill Encounter Details Date Type Department Care Team (Late st Contact Info) Description 02/26/2024 Refill [facility] MEDICINE [address] [place], [place] [phone] Carmina Colorado MD [address] [place], [place] [phone] Essential hypertension Social History Tobacco Use Types Packs/Day Years [...] Questionnaire-9 Score 11/10/2023 Patient Health Questionnaire-9 Score 22 11/10/2023 [...] Description 08/24/2024 11:00 AM EST Office Visit [facility] MED[facility] [address] [place] [phone] Silvina Douglas NP [address] [place] [address] documented as of this encounter Visit Diagnoses Diagnosis Essential hypertension Unspecified essential hypertension documented in this encounter Additional Health Concerns Assessment Noted Time PHQ-9 Depression Total Score: 22 024 2:46 PM EDT documented as of this encounter Care Teams Telephone Operator Chief Relationship Specialty Start Date End Date Carmina Colorado MD [address] [place] [address] [phone] PCP - General Internal Medicine 04/24/23 06/21/24 Silvina Douglas NP [address] [place] [address] [phone] PCP - General Family Medicine 06/22/24 documented as of this encounter
== END 2024-08-11 19:19 | disposition home or self-care (01) ==
LOC: HO.LNP 19:18
PROVIDERS: Visit Provider Nurse Practitioner
DX: R82.90 Unspecified abnormal findings in urine (principal); R35.0 Frequency of micturition
CPT/HCPCS: 81001; 81515; 87086

== ENCOUNTER 2024-08-24 12:14 | Outpatient (REF) | payer MEDICAID, SELFPAY ==
--- OUTSIDE RECORDS SUMMARY | 2024-08-24 12:55 | XMS_ITS | Clinical Summary ---
Author Organization [facility] Address [address] [place] [address] Care Team Providers Care Color Paste Mixing Supervisor Name Role Phone Unavailable Primary Care Provider [...]
--- OUTSIDE RECORDS SUMMARY | 2024-08-24 12:55 | XMS_ITS | Encounter Summary ---
Author Organization [employer] Address [address] [facility] 7t [place] [address] Care Team Providers Care Putty Patcher Name Role Phone Silvina Douglas NP Primary Care Provider [phone] Reason for Visit * Reason Comments Pre-visit Planning SDOH screeningpositi ve and tobacco screening positive Encounter Details Date Type Department Care Team (Latest Contact Info) Description 08/11/2024 Patient Outreach [facility] MEDICINE [address] [place] [address] Silvina Douglas NP [address] [place] [address] Pre-visit Planning (SDOH screeningpositive and tobacco screening [...] appointment a photo id and insurance card, SDUT positive. Patient looking for assistance with utilities serivce shut off noticed received for electric and gas Referral will be placed. documented in this encounter Plan of Treatment Upcoming Encounters Date Type Department Care Team ([facility] st Contact Info) Description 10/08/2024 11:30 AM EDT Office Visit [facility] [address] [place], [place] [phone] Silvina Douglas NP [address] [place], [place] [phone] documented as of this encounter Visit Diagnoses Not on filedocumented in this encounter Additional Health Concerns Assessment Noted Time PHQ-9 Depression Total Score: 22 024 2:46 PM EDT documented as of this encounter Care Teams Putty Patcher Relationship Specialty Start Date End Date Silvina Douglas NP [address] [place] [address] PCP - General Family Medicine 06/22/24 documented as of this encounter
--- OUTSIDE RECORDS SUMMARY | 2024-08-24 12:55 | XMS_ITS | Encounter Summary ---
Author Organization [employer] Address [address] [facility] 7t [place] [address] Care Team Providers Care Production Grip Name Role Phone Silvina Douglas NP Primary Care Provider [phone] Reason for Visit * Reason Onset Date Comments Chart Prep 08/12/2024 Encounter Details Date Type Department Care Team (Late st Contact Info) Description 08/12/2024 Telephone [facility] MEDICINE [address] [place] [address] Hailey Morales MA Chart Prep Social History [...] Care Team (Late st Contact Info) Description 10/08/2024 11:30 AM EDT Office Visit [facility] MEDICINE [address] [place] [address] Silvina Douglas NP [address] [place] [address] documented as of this encounter Visit Diagnoses Not on filedocumented in this encounter Additional Health Concerns Assessment Noted Time PHQ-9 Depression Total Score: 22 024 2:46 PM EDT documented as of this encounter Care Teams Production Grip Relationship Specialty Start Date End Date Silvina Douglas NP [address] [place] [address] PCP - General Family Medicine 06/22/24 documented as of this encounter
--- OUTSIDE RECORDS SUMMARY | 2024-08-24 12:55 | XMS_ITS | Clinical Summary ---
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 Renal condition will be reassessed next [...] urine for culture and will refer to [facility] nephrology for persistent and recurring s/s. Pt [...] 09/13/19 19 Dermatitis 12/05/2011 09/13/2018 Overview (12/23/2015): AL Eczema; Probable; Urinary tract infection 05/19/200611/2015 Acute [...] 08/14/2020, 0 08/14/2020, 08/05/2018, Additional history exists [id number] () 03/21/2024 022 Alcohol and Drug Screen [...] 1 AND 2 ANTIBODY SCREEN NEGATIVE NONREACTIVE [facility] Comment: HIV testing performed at reference lab due to reagent backorder. Test performed at: [facility] [address] [place] [address] Larry Navarrete MD- Silica Spray Mixer Blood Blood / Unknown 08/14/2020 3 :59 PM EST 08/14/2020 7:48 PM EST Narrative [facility] - 08/17/2020 2:04 PM EST [employer], a member of [address] [place] [address] Silica Spray Mixer - Carmina Gill MD PT ID [id number] ORD# [id number] Yomi Ramos MD LAB - BLOOD DRAW Final Resul t [facility] [address] [place] [address], * (ABNORMAL) COMPRE METAB PANEL (08/14/2020 3:59 PM EST) GLUCOSE 82 70 - 100 mg/dL [facility] Comment:Reference range appl icable to fasting specimens only BUN 10 5 - 25 mg/dL [facility] CREAT 0.88 0.5 - 1.1 mg/dL [facility] GLOMERULAR FILTRATION RATE > 60 [facility] Comment: If patient is -Monegasque, multiply result by 1.21 Chronic Kidney Disease: < 60 ml/min/1.73 square meters Kidney Failure: < 15 ml/min/1.73 square meters SODIUM 137 135 - 145 mEq/L [facility] POTASSIUM 4.2 3.5 - 5.5 mmol/L [facility] CHLORIDE 107 96 - 110 mmol/L [facility] CO2 26 21 - 32 mmol/L [facility] ANION GAP 4 3 - 11 [facility] CALCIUM 8.3(L) 8.5 - 10.5 mg/dL [facility] TOTAL PROTEIN 7.1 6.0 - 8.0 G/dL [facility] ALBUMIN 3.4 3.2 - 5.0 G/dL [facility] BILI, TOTAL 0.4 0.0 - 1.4 mg/dL [facility] SGOT 17 10 - 42 U/L [facility] SGPT 17 10 - 60 U/L [facility] ALK PHOS 54 42 - 121 U/L [facility] Blood Blood / Unknown 08/14/2020 3 :59 PM EST 08/14/2020 7:48 PM EST Narrative [facility] - 08/14/2020 8:21 PM EST [employer], a member of [address] [address] Silica Spray Mixer - Carmina Gill MD PT ID [id number] ORD# [id number] Yomi Ramos MD LAB - BLOOD DRAW Edited Resu lt - Final [facility] [id number] [address], [place] [phone] * HEPATITIS C ANTIBODY WITH RFLX TO HCV RNA PCR W/RFLX TO GENOTYPE (11/19/2017 5:19 PM EDT) HEPATITIS C ANTIBODY NON-REACTI VE NON-REACTI VE [facility] Blood specimen (specimen) Blood / Unknown 11/19/2017 5:19 PM EDT 11/19/2017 8:19 PM EDT Brianna CASTRO LAB - BLOOD DRAW Final Result [facility] [address] [place] [address], [place] [phone] * LIPID PANEL (01/08/2017 4:47 PM EDT) CHOLESTEROL 145 MG/DL [facility] Comment: CHOLESTEROL RISK CLASSIFICATION: <200 MG/DL = LOW RISK, ??200 to 239 MG/DL = BORDERLINE/HIGH RISK, ??>239 MG/DL = HIGH RISK. TRIGLYCERIDE 114 40 - 200 MG/DL [facility] HDL CHOLESTEROL 39 MG/DL [facility] Comment: HDL CHOLESTEROL RISK CLASSIFICATION: ??>55 MG/DL = LOW RISK, ??<35 MG/DL = HIGH RISK. LDL CHOLESTEROL, CALCULATED 83 MG/DL [facility] Comment: LDL CHOLESTEROL RISK CLASSIFICATION: <130 MG/DL = LOW RISK, ??130 to 159 MG/DL = BORDERLINE RISK, ??>159 MG/DL = HIGH RISK. Blood specimen (specimen) Blood / Unknown 01/08/2017 4:47 PM EDT 01/08/2017 6:43 PM EDT Brianna Cardonavitor [facility] LAB - BLOOD DRAW Final Result [facility] [address] [facility] [address], [place] [phone] * PAP SMEAR (06/05/2011 3:00 AM EST) PAP SMEAR WNL NO ECC'S HPV NEGATIVE LAB - DATA CONVERSION Comment:Imported from [employer] EHR for health maintenance 06/05/2011 3:00 AM EST us Lexi Provider Default LAB - NO BLOOD DRAW Faye l Result LAB - DATA CONVERSION from Last 3 Months or Most Recently Relevant to Health Maintenance Insurance [facility] [employer] [facility]
--- OUTSIDE RECORDS SUMMARY | 2024-08-24 12:55 | XMS_ITS | Encounter Summary ---
Author Organization [employer] Address [address] [facility] 7t [place] [address] Care Team Providers Care Coremaking Machine Setter Name Role Phone Silvina Douglas NP Primary Care Provider [phone] Encounter Details Date Type Department Care Team (Latest Contact Info) Description 08/24/2024 Travel Social History Tobacco Use Types Packs/Day Years [...] Answer Date Recorded Patient Health Questionnaire-9 Score 21 08/24/2024 Patient Health Questionnaire-9 Score 21 08/24/2024 Last PHQ-9: Questionnaire Data Not on file 0 08/24/2024 Housing Stability Answer Date Recorded What is [...] Date Recorded Patient Health Questionnaire-2 Score 6 08/24/2024 Internet Access Answer Date Recorded Internet Access [...] Description 10/08/2024 11:30 AM EDT Office Visit [facility] [address] [place] [address] Silvina Douglas NP [address] [place] [address] documented as of this encounter Visit Diagnoses Not on filedocumented in this encounter Additional Health Concerns Assessment Noted Time PHQ-9 Depression Total Score: 21 025 11:32 AM EST documented as of this encounter Care Teams Coremaking Machine Setter Relationship Specialty Start Date End Date Silvina Douglas NP [address] [place] [address] PCP - General Family Medicine 06/22/24 documented as of this encounter
--- OUTSIDE RECORDS SUMMARY | 2024-08-24 12:55 | XMS_ITS | Clinical Summary ---
Author Organization [employer] Address [address] [place] [address] 7 [place] [address] Care Team Providers Care Jtac Name Role Phone Silvina Douglas NP Primary Care Provider [phone] Allergies Active Allergy Reactions Criticality Noted Date Comments Clindamycin Rash Low 01/26/2019 Patient reports rash Metronidazole Rash Low 07/10/2016 metronidazole pt reports itchy rash with oral pill. States she tolerated vaginal cream well. 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 02/11/20 23 Active hydrOXYzine pamoate (Vistaril) 25 MG capsule TAKE 1 TO 2 CAPSULES BY MOUTH THREE TIMES DAILY NEEDED FOR ANXIETY OR SLEEP 04/07/20 23 Active cloNIDine (Catapres) 0.1 MG tablet Take 0.1 mg by mouth if needed in the morning and at bedtime. 10/13/19 24 Active albuterol 108 (90 Base) MCG/ACT inhalerIndicati ons:Cigarette nicotine dependence without complication Inhale 2 puffs every 4 (four) hours if needed for shortness of breath or wheezing. 18 g 3 11/10/19 24 Active lidocaine (Lidoderm) 5 % patch Apply 1 patch topically Once per day. Remove & discard patch within 12 hours or as directed by MD. 15 patch 11/10/19 24 Active ketoconazole (Nizoral) 2 % shampooIndicati ons:Folliculiti s Apply topically 2 (two) times a week. 120 mL 1 11/24/19 24 Active buPROPion XL (Wellbutrin XL) 300 MG 24 hr tablet Take 300 mg by mouth Once per day. Do not crush, chew, or split. 450 mg a day Active benzoyl peroxide (PanOxyl Foaming Wash) 10 % external washIndications :Acne, unspecified acne type Apply topically 2 times daily. 227 g 1 12/22/19 24 025 Active cholecalciferol (Vitamin D-3) 50 MCG (1999 UT) capsule Take 1 capsule (50 mcg) by mouth Once per day. 90 capsule 1 12/22/19 24 025 Active Incruse Ellipta 62.5 MCG/ACT aerosol powder INHALE 1 PUFF BY MOUTH EVERY 24 HOURS DOSES SHOULD BE TAKEN AT LEAST 24 HOURS APART Active Fluocinolone Acetonide Scalp ([place]-Smoothe/ FS Scalp) 0.01 % oilIndications: Folliculitis Apply 2 times weekly at night 118.28 mL 06/28/20 24 Active hydroCHLOROthia zide 12.5 MG tablet Take 1 tablet (12.5 mg) by mouth Once per day. 90 tablet 06/28/20 24 025 Active atorvastatin (Lipitor) 10 MG tablet Take 1 tablet (10 mg) by mouth Once per day. 90 tablet 06/28/20 24 025 Active amLODIPine (Norvasc) 10 MG tabletIndicatio ns:Essential hypertension Take 1 tablet (10 mg) by mouth Once per day. TAKE 1 TABLET(10 MG) BY MOUTH IN THE MORNING 90 tablet 06/28/20 24 Active nicotine polacrilex (Nicorette) 2 MG gum Chew 1 each (2 mg) if needed in the morning, at noon, in the evening, and at bedtime for smoking cessation. 100 each 06/28/20 24 Active nicotine (Nicoderm CQ) 14 MG/24HR patch Place 1 patch on the skin 1 (one) time each day at the same time. 30 patch 07/03/20 24 Active buPROPion XL (Wellbutrin XL) 150 MG 24 hr tablet Take 1 tablet by mouth. ALONG WITH 300MG FOR A TOTAL OF 450MG 07/29/19 25 Active Breo Ellipta 200-25 MCG/ACT aerosol powder Take 1 puff by mouth Once per day. 11/18/19 Active ibuprofen 800 MG tablet Take 1 tablet by mouth every 8 (eight) hours if needed. 04/19/20 Active Vyvanse 60 MG capsule Take 1 capsule by mouth Once per day. 08/04/19 Active olmesartan-hydr oCHLOROthiazide (Benicar HCT) 20-12.5 MG tablet Take 1 tablet by mouth Once per day. 90 tablet 08/24/19 25 Active Tirzepatide-William ght Management (Zepbound) 2.5 MG/0.5ML solution auto-injectorIn dications:Hyper tension, unspecified type,Obstructiv e sleep apnea,Morbid obesity (CMS/HCC) Inject 0.5 mL (2.5 mg) under the skin 1 (one) time per week for 28 days. 2 mL 08/24/19 25 025 Active ketoconazole (NIZOral) 2 % cream Apply topically Once per day. 50 g 08/24/19 25 Active tretinoin (Retin-A) 0.025 % creamIndication s:Acne vulgaris Apply topically at bedtime. 45 g 2 08/08/19 24 025 nicotine (Nicoderm CQ) 14 MG/24HR patch Place 1 patch on the skin 1 (one) time each day at the same time. 45 patch 11/10/19 24 025 Discontinued(Me d list cleanup (will not trigger notification to Pharmacy)) nitrofurantoin, macrocrystal-mo nohydrate, (Macrobid) 100 MG capsuleIndicati ons:Acute cystitis without hematuria Take 1 capsule (100 mg) by mouth 2 times daily for 5 days. 10 capsule 08/13/19 25 025 Discontinued(Me d list cleanup (will not trigger notification to Pharmacy)) metroNIDAZOLE (Metrogel) 0.75 % vaginal gelIndications: Bacterial vaginosis Insert into the vagina at bedtime for 7 days. 70 g 08/13/19 25 025 Discontinued(Me d list cleanup (will not trigger notification to Pharmacy)) fluconazole (Diflucan) 150 MG tabletIndicatio ns:Bacterial vaginosis Take 1 tablet (150 mg) by mouth 1 (one) time for 1 dose. 1 tablet 08/13/19 25 025 Discontinued(Me d list cleanup (will not trigger notification to Pharmacy)) olmesartan-hydr oCHLOROthiazide (Benicar HCT) 20-12.5 MG tablet Take 1 tablet by mouth Once per day. 90 tablet 08/24/19 25 025 Discontinued Active Problems Problem Noted Date Diagnosed Date SOB (shortness of breath) 08/24/2024 Hypertension 08/24/2024 Morbid obesity 08/24/2024 Tinea pedis of both feet 08/24/2024 HLD (hyperlipidemia) 12/22/2023 Prolonged Q-T interval on [...] in the future for screening Eye: referred [facility] vision 11/26/22 Dental: Discuss next visit [...] glutathione metabolism 05/28/2012 Overview (08/07/2022): Deficiency of uvazrvk-4-awrmmakua dehydrogenase; Abnormal maternal glucose tolerance, complicatin g [...] Encounters Date Type Department Care Team Description 08/24/2024 11:00 AM EST Office Visit [facility] [address] [place] [phone] Silvina Douglas NP SOB (shortness of breath) (Primary Dx); Hypertension, unspecified type; Obstructive sleep apnea; Morbid obesity ([facility]); Tinea pedis of both feet 08/24/2024 Travel 08/18/2024 Travel 08/13/[address] [address] Delia Doe, MARISOL Call Back Request 08/13/2024 Orders Only [address] [address] Maria D Varela NP Acute cystitis without hematuria (Primary Dx); Bacterial vaginosis 08/12/[address] [address] Hailey Morales [place] Chart Prep 08/11/2024 6:20 PM EST Office Visit [facility] [address] [place] [phone] Maria D Varela NP Frequent urination (Primary Dx); Abnormal urinalysis; Wheezing; Vaginal discharge 08/11/2024 Patient Outreach [facility] [address] [place] [phone] Silvina Douglas NP Care Coordination (CH[facility] outreach for SDOH utilities and foos - LVM ) 08/11/2024 Patient Outreach [facility] [address] [place] [phone] Silvina Douglas NP Pre-visit Planning (SDOH screeningpositive and tobacco screening positive) 06/26/2024 Refill [facility] [address] [place] [phone] Carmina Colorado MD 06/26/2024 Refill [facility] [address] [place] [address] Carmina Colorado MD Folliculitis; Essential hypertension from [...] your housing situation today? I have brandan calvin 08/11/[address] you li [...] Sign Reading Time Taken Comments Blood Pressure 165/105 08/24/2024 11:20 AM EST 2 try 161/111 Pulse 76 08/24/2024 11:20 AM EST Temperature 37.1 ??C (98.8 ??F) 08/24/2024 1 1:20 AM EST Respiratory Rate 18 08/24/2024 11:2 0 AM EST Oxygen Saturation 98% 08/24/2024 11: 20 AM EST Inhaled Oxygen Concentration - - Weight 124 kg (272 lb 6.4 oz) 11:20 AM EST Height 160 cm (5' 3 ) 08/24/2024 11:20 AM EST Body Mass Index 48.25 08/24/2024 11:20 AM EST Plan of Treatment Upcoming Encounters Date Type Department Care Team (Late st Contact Info) Description 10/08/2024 11:30 AM EDT Office Visit [facility] [address] [place] [address] Silvina Douglas NP [address] [place] [address] Health Maintenance Due Date Last Done Comments CT Colonography 1975 Colonoscopy 1975 FIT 1975 FOBT 1975 Sigmoidoscopy 1975 Family Planning (PISQ) 1990 Hepatitis A Vaccines (1 of 2 - Risk 2-dose series) 1994 Pap Smear 1996 Cervical Cancer Screening 2005 HPV/Cotest 2005 COVID-19 Vaccine ( - season) 2024 07/10/2022, 08/16/2021 Depression Monitoring (PHQ-9) 02/21/2025 08/24/2024, 08/24/2024 Zoster Vaccines (1 of 2) 2025 Mammogram 04/12/2025 04/12/2023, 04/12/2023 SDOH Screening 08/11/2025 08/11/2024 Alcohol/Substance Use Screening 08/24/2025 08/24/2024 Depression Screening 08/24/2025 08/24/2024, 08/24/19 Tobacco Screening 08/24/2025 08/24/2024 Colorectal Cancer Screening 06/26/2026 FIT DNA/Cologuard 06/26/2026 [...] 5 Years) and At-Risk Patients (6 to 49) Years) Completed 12/22/2023, 08/05/2018 Influenza Vaccine Completed [...] 7:18 PM EST Frequent urination Abnormal urinalysis CULTURE, URINE, ROUTINE Routine 08/11/2024 7:18 PM EST Abnormal urinalysis BACTERIAL VAGINOSIS PANEL Routine 08/11/2024 7:17 PM EST Vaginal discharge POCT URINALYSIS DIPSTICK Routine 08/11/2024 6:50 PM [...] (08/11/2024 7:18 PM EST) Color Urine Yellow [facility] Appearance Urine Cloudy [facility] PH 7.0 5.0 - 9.0 [facility] Glucose Urine UA Negative Negative mg/dL [facility] Urine Blood Negative Negative [facility] Specific Barnum - Urine 1.020 1.005 - 1.025 [facility] Urine Protein 30 (1+)(A) Neg-Trace mg/dL [facility] Urine Ketones Negative Negative mg/dL [facility] Nitrite Urine Negative Negative [facility] Leukocyte Esterase Urine Trace(A) Negative [facility] RBC Urine 0-2 0 - 2 /HPF [facility] Urine WBC 11-20(A) 0 - 5 /HPF [facility] Urine Squamous Epithelial Cell 6-10 0 - 2 /HPF [facility] Urine Bacteria 2+ None Seen [facility] Hyaline Casts, Urine 0-2 0 - 2 /LPF [facility] Urine Urine specimen obtained by clean catch procedure / Unknown 08/11/2024 7:18 PM EST 08/12/2024 11:36 AM EST [facility] DIRECTOR PERSONAL LAB URINE ORDERABLES Final Resu lt Performing Organization Address [facility]/ZIP Co de Phone Number [facility] [address] [place] [phone] * Culture, Urine, Routine (08/11/2024 7:18 PM EST) Urine Urine specimen obtained by clean catch procedure / Unknown 08/11/2024 7:18 PM EST 08/12/2024 11:37 AM EST Comment:UACC Narrative [facility] - 08/13/2024 11:33 AM EST Urine Culture Report Result Urine Culture > 100,000 cfu/ml Urine Culture Mixed bacterial thuy characteristic of Urine Culture urogenital contamination. Specimen Source: Urine clean catch [facility] DIRECTOR PERSONAL LAB MICROBIOLOGY - GENERAL ORDE RABLES Final Result Performing Organization Address [facility] Co de Phone Number [facility] [address] [place] [phone] * (ABNORMAL) Bacterial Vaginosis (08/11/2024 7:17 PM EST) TRICHOMONAS VAGINALIS DETECTION BY PCR NOT DETECTED Not Detect [facility] BACTERIAL VAGINOSIS DETECTION BY PCR POSITIVE(A) Negative [facility] Comment:The BV organism targ ets of the Xpert Xpress MVP test can becommensal in women; Xpert Xpress MVP positive results forbacterial vaginosis should be considered in conjunction withother clinical and patient information to determine thedisease status. Organisms that are not detected by the XpertXpress MVP test have also been reported to be associatedwith BV and aerobic vaginitis.The Xpert Xpress MVP test performance has not been evaluatedin patients under the age of 14. AWILDA GROUP DETECTION BY PCR NOT DETECTED Not Detect [facility] Awilda glab krusei PCR NOT DETECTED Not Detect [facility] Swab Vaginal structure / Unknown 08/11/2024 7:17 PM EST 08/12/2024 11:44 AM EST us Maria D Varela NP LAB MICROBIOLOGY - [facility] Final Result [facility] [address] [place] [phone] * (ABNORMAL) POCT Urinalysis (08/11/2024 6:50 [...] UA clear Urine 08/11/2024 6:50 PM EST us Maria D Varela NP POINT OF CARE TEST ENTER/EDIT O RDERABLES Final Result * Hepatitis C Antibody with Reflex to HCV, RNA, Quantitative, Real-Time PCR (11/11/2023 1:05 PM EDT) Hepatitis C Antibody Nonreactive Nonreactive [facility] Comment:Antibodies to HCV no t detected; does not exclude early acuteHCV infection. Blood Venous blood specimen / Unknown 11/11/2023 1:05 PM EDT 11/11/2023 4:02 PM EDT us Carmina Quiroga MD LAB BLOOD ORDERAB LES Final Result Performing Organization Address City/[facility]/ZIP Co de Phone Number [facility] [address] [place] [phone] * HIV-1/2 Antigen and Antibodies, Fourth Generation, with Reflexes (11/11/2023 1:05 PM EDT) Pathologist [facility] HIV AB/AG Nonreactive Nonreactive [facility] Comment:HIV-1 p24 Ag and/or HIV-1/HIV-2 Ab not detected.A test result that is nonreactive does not exclude thepossibility of exposure to or infection with HIV-1 and/orHIV-2. Nonreactive results in this assay for individualswith prior exposure to HIV-1 and/or HIV-2 may be due toantigen and antibody levels that are below the limit ofdetection of this assay.The PolySpot HIV Ag/Ab Combo assay result andsupplemental assay results should be interpreted inconjunction with the patient's clinical presentation,history and other laboratory results. If the results areinconsistent with clinical evidence, additional testing issuggested to confirm the result. Blood Venous blood specimen / Unknown 11/11/2023 1:05 PM EDT 11/11/2023 4:02 PM EDT us Carmina Quiroga MD LAB BLOOD ORDERAB LES Final Result Performing Organization Address [facility]/ZIP Co de Phone Number [facility] [address] [place] [phone] * (ABNORMAL) Lipid Panel, Standard (11/11/2023 1:05 PM EDT) Pathologist [facility] Triglycerides 81 <150 mg/dL [facility] Comment:Desirable Triglyceri de: less than 150 mg/dLBorderline High Triglyceride 150-199 mg/dLHigh Triglyceride: 200-499 mg/dLVery High Triglyceride: greater than or equal to 5OO mg/dL Cholesterol 212(H) <200 mg/dL [facility] Comment:Desirable Cholestero l: less than 200 mg/dLBorderline High Cholesterol: 200-239 mg/dLHigh Cholesterol: greater than 239 mg/dL LDL Cholesterol Calculated 151(H) <100 mg/dL [facility] Comment:Desirable LDL: less than 100 mg/dLNear Optimal/Above Optimal LDL: 110- 129 mg/dLBorderline High LDL: 130-159 mg/dLHigh LDL: 160-189 mg/dLVery High LDL: greater than or equal to 190 mg/dL HDL Cholesterol 45 >40 mg/dL [facility] Comment:Desirable HDL: great er than 40 mg/dL Note: This HDL assay may give artificially low results in patients with liver disease. Blood Venous blood specimen / Unknown 11/11/2023 1:05 PM EDT 11/11/2023 4:02 PM EDT us Carmina Quiroga MD LAB BLOOD ORDERAB LES Final Result [facility] [address] [place] [phone] * Cologuard?? colon cancer screening (06/26/2023 9:50 PM EST) Cologuard Result Negative Negative 07/05/20 1:05 AM EST [employer] (CLIA #:[id number]) Comment: NEGATIVE TEST RESULT. A negative Cologuard [...] (Brenda Hazel al, N Engl J Med 2014;370(14):1286- 1297) The normal value (reference range) for this assay is negative. COLOGUARD RE-SCREENING RECOMMENDATION: Periodic colorectal cancer screening is an important part of preventive healthcare for asymptomatic individuals at average risk for colorectal cancer. ??Following a negative Cologuard result, the [place] [employer] Society and U.S. Multi-Society Task Force screening guidelines recommend a Cologuard re-screening interval of 3 years. References: [place] [employer] Guideline for Colorectal Cancer Screening: https://www.cancer.org/cancer/pekbi-skmbqt-ddreco/eltbcnipw-bljavopdu-cqkhqpw/ac s-rec ommendations.html.; John MORRISON, Beronica GALAVIZ, Delonte DanielsonK, Colorectal Cancer Screening: Recommendations for Physicians and Patients from the U.S. Multi-Society Task Force on Colorectal Cancer Screening , Am J Gastroenterology 2017; 112:5389-8317. TEST DESCRIPTION: Composite algorithmic analysis of stool [...] screened with both Cologuard and colonoscopy. (Brenda Mane, N Engl J Med 2014;370(14):6868-0286.) Cologuard may produce a false negative or false positive result (no colorectal cancer or precancerous polyp present at colonoscopy follow up). A negative Cologuard test result does not guarantee the absence of CRC or advanced adenoma (pre-cancer). The current Cologuard screening interval is every 3 years. ([place] [employer] Society and U.S. Multi-Society Task Force). Cologuard performance data in a 10,000 patient pivotal study using colonoscopy as the reference method can be accessed at the following location: www.[employer]/results. Additional description of the Cologuard test process, warnings and precautions can be found at www.colog51edurd.[employer]. Stool specimen (specimen) Rectal contents / Unknown 06/26/2023 9:50 PM EST 06/28/2023 4:06 PM EST Rosa Santos DEPUTY BUILDING GUARD LAB MOLECULAR DIAGNOSTICS ORDERABLES Final Result [employer] (CLIA #:[id number]) [place] [address], * BI Mammogram Screening Tomosynthesis Bilateral (04/12/2023 10:11 AM EDT) Anatomical Region Laterality Modality Breast Bilateral Mammography 04/12/2023 10:1 1 AM EDT Narrative 04/19/2023 9:57 PM EDT ? [facility] ? [facility] ?[place] [address] ? Mammography Report ? Signed ? Patient: Joaquim,Lizbeth ?MR#: [id number] ?? 8 ? : 1975 ?Acct:[id number] ? Age/Sex: 48 / F ?ADM Date: 09/23/23 ? Loc: HO.MAMMO ? Attending Shama Kincaidon DEPUTY BUILDING GUARD ? Ordering Physician: Rosa Santos DEPUTY BUILDING GUARD ?Results: 1N ?? egative ? Date of Service: 04/12/23 ?Follow Up: 1 Year From Orig ?? inal Mammogram ? Procedure(s): MM tomosynthesis screening BI ?? Accession Number(s): [id number] ? cc: Rosa Santos DEPUTY BUILDING GUARD ? EXAMINATION: ?? MM SCREENING DIGITAL BREAST [...] by Edelmira Mason MD in OV> ? 04/19/23 2153 ? DD/ 1011 ? TD/TT: ? Disk Operator: ? Procedure Note Donotuseinterpreter, Image - 04/19/2023 [facility] [address] [place] [address] Mammography Report Signed Patient: Juanjose MarchR#: [id number] 8 : 1975Acct:[id number] Age/Sex: 48 / FADM Date: 04/12/23 Loc: HO.MAMMO Attending Dr: Rosa Santos DEPUTY BUILDING GUARD Ordering Physician: Rosa Santos FNPResults: 1N egative Date of Service: 04/12/23Follow Up: 1 Year From Orig inal Mammogram Procedure(s): MM tomosynthesis screening BI Accession Number(s): [id number] cc: Rosa Santos DEPUTY BUILDING GUARD EXAMINATION: MM SCREENING DIGITAL BREAST TOMOSYNTHESIS, BILATERAL [...] date for their next mammogram. Dictated By: Edelmira Mason MD Signed By: <Electronically signed by Edelmira Mason MD in OV> 04/19/23 4596 DD/ 1011 TD/TT: Disk Operator: Rosa Santos DEPUTY BUILDING GUARD IMG BI PROCEDURES Edited R esult - Final from Last 3 Months or Most Recently Relevant to Health Maintenance Insurance [employer] C3 Care Teams Jtac Relationship Specialty Start Date End Date Silvina Douglas NP [address] [place] [phone] PCP - General Family Medicine 06/22/24
--- OUTSIDE RECORDS SUMMARY | 2024-08-24 12:55 | XMS_ITS | Encounter Summary ---
Author Organization [employer] Address [address] [place] [address] [address] [place] [address] Care Team Providers Care Tool Tender Name Role Phone Silvina Douglas NP Primary Care Provider [phone] Reason for Visit * Reason Comments Med Refill Encounter Details Date Type Department Care Team ([facility] st Contact Info) Description 06/26/2024 Refill [facility] [address] [place], [place] [phone] Carmina Colorado MD [address] [place] [address] Social History Tobacco Use Types Packs/Day Years [...] Description 10/08/2024 11:30 AM EDT Office Visit [facility] [address] [place] [address] Silvina Douglas NP [address] [place] [address] documented as of this encounter Visit Diagnoses Not on filedocumented in this encounter Additional Health Concerns Assessment Noted Time PHQ-9 Depression Total Score: 22 024 2:46 PM EDT documented as of this encounter Care Teams Tool Tender Relationship Specialty Start Date End Date Silvina Douglas NP [address] [place] [address] PCP - General Family Medicine 06/22/24 documented as of this encounter
--- OUTSIDE RECORDS SUMMARY | 2024-08-24 12:56 | XMS_ITS | Encounter Summary ---
Author Organization [employer] Address [address] [facility] [address] [place] [address] Care Team Providers Care Rental Car Porter Name Role Phone Silvina Douglas NP Primary Care Provider [phone] Encounter Details Date Type Department Care Team (Late st Contact Info) Description 08/13/2024 Orders Only [facility] [address] [place], [place] [phone] Maria D Varela NP [address] [place] [address] Acute cystitis without hematuria (Primary Dx); Bacterial vaginosis Social History Tobacco Use Types Packs/Day Years [...] Description 10/08/2024 11:30 AM EDT Office Visit [facility] [address] [place] [address] Silvina Douglas NP [address] [place] [address] documented as of this encounter Visit Diagnoses Diagnosis Acute cystitis without hematuria- Primary Bacterial vaginosis Unspecified vaginitis and vulvovaginitis documented in this encounter Additional Health Concerns Assessment Noted Time PHQ-9 Depression Total Score: 22 024 2:46 PM EDT documented as of this encounter Care Teams Rental Car Porter Relationship Specialty Start Date End Date Silvina Douglas NP [address] [place] [address] PCP - General Family Medicine 06/22/24 documented as of this encounter
--- OUTSIDE RECORDS SUMMARY | 2024-08-24 12:56 | XMS_ITS | Encounter Summary ---
Author Organization [employer] Address [address] [place] [address] 7 [place] [address] Care Team Providers Care Char House Supervisor Name Role Phone Carmina Colorado MD Primary Care Pro vider Silvina Douglas NP Primary Care Provider [phone] Reason for Visit * Reason Comments Med Refill Encounter Details Date Type Department Care Team (Late st Contact Info) Description 02/26/2024 Refill [facility] [address] [place], [place] [phone] Carmina Colorado MD 230 [place], [place] [phone] Essential hypertension Social History Tobacco Use Types [...] Description 10/08/2024 11:30 AM EDT Office Visit [facility] [address] [place] [address] [phone] Silvina Douglas NP 230 [place] [address] documented as of this encounter Visit Diagnoses Diagnosis Essential hypertension Unspecified essential hypertension documented in this encounter Additional Health Concerns Assessment Noted Time PHQ-9 Depression Total Score: 22 024 2:46 PM EDT documented as of this encounter Care Teams Char House Supervisor Relationship Specialty Start Date End Date Carmina Colorado MD [address] [place] [address] [phone] PCP - General Internal Medicine 04/24/23 06/21/24 Silvina Douglas NP [address] [place] [address] [phone] PCP - General Family Medicine 06/22/24 documented as of this encounter
--- OUTSIDE RECORDS SUMMARY | 2024-08-24 12:56 | XMS_ITS | Encounter Summary ---
Author Organization [employer] Address [address] [place] [address] 7 [place] [address] Care Team Providers Care Video Production Intern Name Role Phone Silvina Douglas NP Primary Care Provider [phone] Reason for Referral * Consultation (Routine) - Authorized Specialty Diagnoses / Procedures Referred By Joon t Referred To Contact Pharmacy Diagnoses Hypertension, unspecified type Silvina Douglas NP 230 [place] [address] Phone: tel: fax: Referral ID Status Reason Start Date Expiration Date Visits Requested Visits Authorized [id number] Authorized Continuity of Care 08/24/2024 08/24/2025 6 6 Scheduling Instructions Med box initiating Encounter Details Date Type Department Care Team (Late st Contact Info) Description 08/24/2024 11:00 AM EST Office Visit [facility] MED[facility]INE [address] [place], [place] [phone] Silvina Douglas NP [address] [place] [address] SOB (shortness of breath) (Primary Dx); Hypertension, unspecified type; Obstructive sleep apnea; Morbid obesity (CMS/HCC); Tinea pedis of both feet Social History Tobacco Use Types Packs/Day Years [...] Mass Index 48.25 08/24/2024 11:20 AM EST documented in this encounter Plan of Treatment Upcoming Encounters Date Type Department Care Team (Late st Contact Info) Description 10/08/2024 11:30 AM EDT Office Visit [facility] MED[facility]INE [address] [place] [address] Silvina Douglas NP [address] [place] [address] Scheduled Orders Name Type Priority Associated Diagnoses Orde r Schedule CBC auto differential Lab Routine SOB (shortness of breath) Expected: 08/24/2024 (Approximate), Expires: 08/24/2025 Iron And Total Iron Binding Capacity Lab Routine SOB (shortness of breath) Expected: 08/24/2024, Expires: 08/24/2025 Scheduled Referrals Name Type Priority Associated Diagnoses Orde r Schedule Referral to Pharmacy [place] Outpatient Referral Routine Hypertension, unspecified type Ordered: 08/24/2024 documented as of this encounter Visit Diagnoses Diagnosis SOB (shortness of breath)- Primary Shortness of breath Hypertension, unspecified type Obstructive sleep apnea Obstructive sleep apnea (adult) (pediatric) Morbid obesity (CMS/HCC) Morbid obesity Tinea pedis of both feet documented in this encounter Additional Health Concerns Assessment Noted Time PHQ-9 Depression Total Score: 21 025 11:32 AM EST documented as of this encounter Care Teams Video Production Intern Relationship Specialty Start Date End Date Silvina Douglas NP 230 [place] [address] PCP - General Family Medicine 06/22/24 documented as of this encounter
--- OUTSIDE RECORDS SUMMARY | 2024-08-24 12:56 | XMS_ITS | Encounter Summary ---
Author Organization [employer] Address [address] [facility] 7t [place] [address] Care Team Providers Care Coremaking Machine Operator Name Role Phone Silvina Douglas NP Primary Care Provider [phone] Reason for Visit * Reason Comments Care Coordination CHW outreach for [employer] utilities and foos - LVM Encounter Details Date Type Department Care Team (Latest Contact Info) Description 08/11/2024 Patient Outreach [facility] 230 [place] [address] Silvina Douglas NP 230 [place] [address] Care Coordination (CHW outreach for [employer] utilities [...] Wednesdays, and Walk-In Urgent Care Located in [facility]. Patient provided with after-hours line for [facility], , which offer night time triage service and option to transfer toon call provider if needed. documented in this encounter Plan of Treatment Upcoming Encounters Date Type Department Care Team (Late st Contact Info) Description 10/08/2024 11:30 AM EDT Office Visit [facility] [address] [place] [address] Silvina Douglas NP 230 [place] [address] documented as of this encounter Visit Diagnoses Not on filedocumented in this encounter Additional Health Concerns Assessment Noted Time PHQ-9 Depression Total Score: 22 024 2:46 PM EDT documented as of this encounter Care Teams Coremaking Machine Operator Relationship Specialty Start Date End Date Silvina Douglas NP 230 [place] [address] PCP - General Family Medicine 06/22/24 documented as of this encounter
--- OUTSIDE RECORDS SUMMARY | 2024-08-24 12:56 | XMS_ITS | Encounter Summary ---
Author Organization [employer] Address 75 [facility] 7t [place] [address] Care Team Providers Care Toxics Program Officer Name Role Phone Silvina Douglas NP Primary Care Provider [phone] Reason for Visit * Reason Onset Date Comments Call Back Request 08/13/2024 Encounter Details Date Type Department Care Team ([facility] st Contact Info) Description 08/13/2024 Telephone [facility] 230 [place], [place] [phone] Delia Doe, MARISOL 230 [place] [address] Call Back Request Social History Tobacco Use Types Packs/Day Years [...] the past 12 months, has t he [employer] gas, oil or water [employer] threatened to shut off services in your [...] encounter Miscellaneous Notes * Telephone Encounter - Delia Doe RN - 08/13/2024 1:16 PM EST T/C to pt. Advised pt of rx sent to preferred pharmacy. Advised that pt will be contacted if urine culture indicates need for treatment change. Pt reports agreement with plan. * Telephone Encounter - Maria D Varela NP - 08/13/2024 12:19 PM EST Thank you * Telephone Encounter - Delia Doe RN - 08/13/2024 12:00 PM EST 2nd call placed to pt per pcp request. Pt reports that she experienced itchy hives with oral Flagylbut tolerates the vaginal cream well. Pt reports that she always get a yeast infection following BVtreatment and wanted to remind provider. Pt states she cannot recall what her reaction to clindamycin is. Pt states she prefers to have her medications send to [facility] in [place]. Pharmacy updated. Message sent to [facility] for review. * Telephone Encounter - Nnamdi Weinberg - 08/13/2024 11:32 AM EST Tc from pt returning call as VM was placed to return call to Blue team nurses , life underwriter notify reached out to nurse and was ask to task as blue team nurses are currently busy as they will be returningcall later in the day. [phone] * Telephone Encounter - Delia Deo RN - 08/13/2024 9:43 AM EST T/C to pt to advise of message from [facility] re: test results and to determine pt's reaction to flagyl and clindamycin and to determine which pharmacy pt would like treatment sent to. No answer, v/m left to return call to Blue team nurses. * Telephone Encounter - Delia Doe RN - 08/13/2024 9:41 AM EST ----- Message from Maria D Varela sent at 08/13/2024 8:46 AM EST ----- Please inform patient of positive BV result and UTI; urine culture still pending. She has documented allergy to both flagyl and clindamycin which are used to treat BV. Please verify her specific reaction before treatment for BV can be sent in for her. Also confirm what pharmacy she would like the me dications sent to. Thanks documented in this encounter Plan of Treatment Upcoming Encounters Date Type Department Care Team (Late st Contact Info) Description 10/08/2024 11:30 AM EDT Office Visit [facility] 230 [facility] [place] [address] Silvina Douglas NP 230 [place] [address] documented as of this encounter Visit Diagnoses Not on filedocumented in this encounter Additional Health Concerns Assessment Noted Time PHQ-9 Depression Total Score: 22 024 2:46 PM EDT documented as of this encounter Care Teams Toxics Program Officer Relationship Specialty Start Date End Date Silvina Douglas NP 230 [place] [address] PCP - General Family Medicine 06/22/24 documented as of this encounter
--- OUTSIDE RECORDS SUMMARY | 2024-08-24 12:56 | XMS_ITS | Encounter Summary ---
Author Organization [employer] Address 75 [facility] 7t [place] [address] Care Team Providers Care Gunner'S Mate M Name Role Phone Silvina Douglas NP Primary Care Provider [phone] Reason for Visit * Reason Comments UTI Encounter Details Date Type Department Care Team ([facility] [address] Contact Info) Description 08/11/2024 6:20 PM EST Office Visit [facility] 230 [place], [place] [phone] Maria D Varela NP 230 [place] [address] Frequent urination (Primary Dx); Abnormal urinalysis; Wheezing; [...] female who presents to the Walk in [place] for a sick visit. Denies recent illness, [...] Description 10/08/2024 11:30 AM EDT Office Visit [facility] [address] [place] [address] Silvina Douglas NP 230 [place] [address] documented as of this encounter Procedures Procedure Name Priority Date/Time Associated Diagnosis Comments URINALYSIS, COMPLETE Routine 08/11/2024 7:18 PM EST Frequent urination Abnormal urinalysis CULTURE, URINE, ROUTINE Routine 08/11/2024 7:18 PM EST Abnormal urinalysis BACTERIAL VAGINOSIS PANEL Routine 08/11/2024 7:17 PM EST Vaginal discharge POCT URINALYSIS DIPSTICK Routine 08/11/2024 6:50 PM EST Frequent urination documented in this encounter Results * Culture, Urine, Routine (08/11/2024 7:18 PM EST) Urine Urine specimen obtained by clean catch procedure / Unknown 08/11/2024 7:18 PM EST 08/12/2024 11:37 AM EST Comment:UACC Narrative [facility] - 08/13/2024 11:33 AM EST Urine Culture Report Result Urine Culture > 100,000 cfu/ml Urine Culture Mixed bacterial thuy characteristic of Urine Culture urogenital contamination. Specimen Source: Urine clean catch Maria D Varela NP LAB MICROBIOLOGY - [facility] NIR PASCUAL Final Result [facility] [address] [place], [place] [phone] * (ABNORMAL) Urinalysis Complete (08/11/2024 7:18 PM EST) Color Urine Yellow [facility] Appearance Urine Cloudy [facility] PH 7.0 5.0 - 9.0 [facility] Glucose Urine UA Negative Negative mg/dL [facility] Urine Blood Negative Negative [facility] Specific [place] - Urine 1.020 1.005 - 1.025 [facility] Urine Protein 30 (1+)(A) Neg-Trace mg/dL [facility] Urine Ketones Negative Negative mg/dL [facility] Nitrite Urine Negative Negative [facility] Leukocyte Esterase Urine Trace(A) Negative [facility] RBC Urine 0-2 0 - 2 /HPF [facility] Urine WBC 11-20(A) 0 - 5 /HPF [facility] Urine Squamous Epithelial Cell 6-10 0 - 2 /HPF [facility] Urine Bacteria 2+ None Seen [facility] Hyaline Casts, Urine 0-2 0 - 2 /LPF [facility] Urine Urine specimen obtained by clean catch procedure / Unknown 08/11/2024 7:18 PM EST 08/12/2024 11:36 AM EST [facility] LAB URINE ORDERABLES Final Resu lt Performing Organization Address [facility] Co de Phone Number [facility] [address] [place] [address] [phone] * (ABNORMAL) Bacterial Vaginosis (08/11/2024 7:17 PM EST) TRICHOMONAS VAGINALIS DETECTION BY PCR NOT DETECTED Not Detect [facility] BACTERIAL VAGINOSIS DETECTION BY PCR POSITIVE(A) Negative [facility] Comment:The BV organism targ ets [...] DETECTION BY PCR NOT DETECTED Not Detect [facility] Awilda glab krusei PCR NOT DETECTED Not Detect [facility] Swab Vaginal structure / Unknown 08/11/2024 7:17 PM EST 08/12/2024 11:44 AM EST [facility] LAB MICROBIOLOGY - GENERAL ORDE RABLES Final Result Performing Organization Address [facility] Co de Phone Number [facility] [address] [place] [address] [phone] * (ABNORMAL) POCT Urinalysis (08/11/2024 6:50 [...] 08/11/2024 6:50 PM EST Maria D Varela FIELD OPERATOR POINT OF CARE TEST ENTER/EDIT O RDERABLES [...] documented as of this encounter Care Teams Gunner'S Mate M Relationship Specialty Start Date End Date Silvina Douglas NP [address] [place] [address] PCP - General Family Medicine 06/22/24 documented as of this encounter
--- OUTSIDE RECORDS SUMMARY | 2024-08-24 12:56 | XMS_ITS | Encounter Summary ---
Author Organization [employer] Address 75 [facility] 7t [place] [address] Care Team Providers Care Field Service Consultant Name Role Phone Silvina Douglas NP Primary Care Provider [phone] Encounter Details Date Type Department Care Team (Latest Contact Info) Description 08/18/2024 Travel Social History Tobacco Use Types Packs/Day [...] Description 10/08/2024 11:30 AM EDT Office Visit [facility] MEDICINE [address] [place] [address] Silvina Douglas NP 230 [place] [address] documented as of this encounter Visit Diagnoses Not on filedocumented in this encounter Additional Health Concerns Assessment Noted Time PHQ-9 Depression Total Score: 22 024 2:46 PM EDT documented as of this encounter Care Teams Field Service Consultant Relationship Specialty Start Date End Date Silvina Douglas NP 230 [place] [address] PCP - General Family Medicine 06/22/24 documented as of this encounter
[2024-08-24 13:19] LABS: MANUAL DIFF FLAG NO
[2024-08-24 13:33] LABS: Basophils Percent Auto 0.8 % (0-2); Eosinophils Absolute Auto 0.2 X10*3/uL (0.0-0.4); Eosinophils Percent Auto 3.8 % (0-4); Hematocrit 44.7 % (37.0-47.0); Hemoglobin 13.7 g/dl (12.0-16.0); Imm Gran Abs Auto 0.03 X10*3/uL (0.00-0.03); Imm Gran Pct Auto 0.6 % (0.0-0.4); Lymphocytes Absolute Auto 1.7 X10*3/uL (1.2-4.9); Lymphocytes Percent Auto 33.5 % (20-40); Mean Corpuscular HGB Conc 30.6 g/dl (31.0-35.0); Mean Corpuscular Hemoglobin 25.7 pg (27.0-33.0); Mean Corpuscular Volume 83.9 fL (80.0-98.0); Mean Platelet Volume 10.7 fL (9.4-12.3); Monocytes Absolute Auto 0.4 X10*3/uL (0.1-1.2); Monocytes Percent Auto 8.5 % (2-11); Neutrophils Absolute Auto 2.7 x10*3/uL (2.0-8.3); Neutrophils Percent Auto 52.8 % (45-73); Platelet Count 250 X10*3/uL (160-400); Red Blood Count 5.33 X10*6/uL (4.20-5.50); Red Cell Distribution Width 13.4 % (11.0-16.0); White Blood Count 5.1 X10*3/uL (4.8-10.8)
[2024-08-24 13:52] LABS: Alanine Aminotransferase 14 U/L (0-31); Alkaline Phosphatase 60 U/L (39-117); Anion Gap 14 (12-20); Aspartate Amino Transferase 21 U/L (5-31); Bilirubin Total 0.4 mg/dL (0.0-1.0); Blood Urea Nitrogen 16 mg/dL (9-16); Calcium 8.7 mg/dL (8.4-10.2); Carbon Dioxide 31 mmol/L (22-29); Chloride 101 mmol/L (96-108); Cholesterol 237 mg/dL (<200); Estimated Glomerular Filt Rate 59; Glucose Random 104 mg/dL (60-115); HDL Cholesterol 47 mg/dL (>40); Iron 89 mcg/dL (30-160); LDL Cholesterol Calculated 167 mg/dL (<100); Percent Iron Saturation 29 % (15-50); Potassium 4.5 mmol/L (3.3-5.1); Sodium 141 mmol/L (135-145); Total Iron Binding Capacity 304 mcg/dL (228-428); Triglycerides 119 mg/dL (<150); Unsaturated Iron Binding 215 ug/dL
[2024-08-24 14:12] LABS: Ferritin 43 ng/mL (10-250)
== END 2024-08-24 12:15 | disposition home or self-care (01) ==
LOC: HO.HHCL 12:14
PROVIDERS: Nurse Practitioner Family; Visit Provider Student in an Organized Health Care Education/Training Program
DX: R06.02 Shortness of breath (principal); D50.9 Iron deficiency anemia, unspecified; E78.5 Hyperlipidemia, unspecified
CPT/HCPCS: 36415; 80053; 80061; 82728; 83540; 85025

== ENCOUNTER 2024-09-21 | Outpatient (REF) | payer MEDICAID, SELFPAY ==
--- OUTSIDE RECORDS SUMMARY | 2024-09-22 13:54 | XMS_ITS | Encounter Summary ---
Author Organization [employer] Address [address] [facility] 7t [place] [address] Care Team Providers Care Rn Disease Management Name Role Phone Silvina Douglas NP Primary Care Provider [phone] Encounter Details Date Type Department Care Team ([facility] st Contact Info) Description 08/24/2024 Telephone [facility] MEDICINE 230 [place], [place] [phone] Silvina Douglas NP [address] [place] [address] Social History Tobacco Use Types Packs/Day Years [...] Description 10/08/2024 11:30 AM EDT Office Visit [facility] MEDICINE [address] [place] [address] Silvina Douglas NP [address] [place] [address] 10/18/2024 2:00 PM EDT Telemedicine [facility] MEDICINE [address] [place] [address] Raymundo Al, PharmD [address] [place] [place] [address] documented as of this encounter Visit Diagnoses Not on filedocumented in this encounter Additional Health Concerns Assessment Noted Time PHQ-9 Depression Total Score: 21 025 11:32 AM EST documented as of this encounter Care Teams Rn Disease Management Relationship Specialty Start Date End Date Silvina Douglas NP [address] [place] [address] PCP - General Family Medicine 06/22/24 documented as of this encounter
--- OUTSIDE RECORDS SUMMARY | 2024-09-22 13:54 | XMS_ITS | Encounter Summary ---
Author Organization [employer] Address 75 [facility] 7t [place] [address] Care Team Providers Care Social Work Case Manager Name Role Phone Silvina Douglas NP Primary Care Provider [phone] Reason for Visit * Reason Onset Date Comments Med Refill 08/30/2024 Encounter Details Date Type Department Care Team (Late st Contact Info) Description 08/30/[address] [facility] [address] [place] [address] Silvina Douglas NP [address] [place] [address] Essential hypertension; Acne, unspecified acne type; Folliculitis Social History Tobacco Use Types Packs/Day Years [...] Answer Date Recorded Patient Health Questionnaire-9 Score 08/24/2024 Patient Health Questionnaire-9 Score 21 08/24/2024 [...] Description 10/08/2024 11:30 AM EDT Office Visit [facility] MEDICINE [address] [place] [address] Silvina Douglas NP [address] [place] [address] 10/18/2024 2:00 PM EDT Telemedicine [facility] MEDICINE [address] [place] [address] Raymundo Al, PharmD 230 [place] [address] documented as of this encounter Visit Diagnoses Diagnosis Essential hypertension Unspecified essential hypertension Acne, unspecified acne type Folliculitis Other specified disease of hair and hair follicles documented in this encounter Additional Health Concerns Assessment Noted Time PHQ-9 Depression Total Score: 21 025 11:32 AM EST documented as of this encounter Care Teams Social Work Case Manager Relationship Specialty Start Date End Date Silvina Douglas NP [address] [place] [address] PCP - General Family Medicine 06/22/24 documented as of this encounter
--- OUTSIDE RECORDS SUMMARY | 2024-09-22 13:54 | XMS_ITS | Encounter Summary ---
Author Organization [employer] Address 75 [facility] 7t [place] [address] Care Team Providers Care Bus Girl Name Role Phone Silvina Douglas FISH CONSERVATIONIST Primary Care Provider [phone] Raymundo Al PharmD Unavailable [phone] Reason for Visit * Reason Onset Date Comments Nurse Triage 09/15/2024 Encounter Details Date Type Department Care Team (Late st Contact Info) Description 09/15/2024 Telephone [facility] MEDICINE 230 [place], [place] [phone] Silvina Douglas NP [address] [place], [place] [phone] Nurse Triage Social History Tobacco Use Types Packs/Day Years [...] encounter Miscellaneous Notes * Telephone Encounter - Mariola Jaffe RN - 09/15/2024 12:21 PM EST Images from the original note were not included. Call returned to Lizbeth March to triage below. Reports having onset of pain with passing urine andblood in urine x 1 month. Also endorses having vaginal discharge that is white and has odor. Per ptendorses some urgency. Pt having pelvic pain. No flank pain. Denies any fever in past 48hrs. Pt denies any N/V. Pt advised of disposition, declines Sick onsite with blue team provider. Agrees to seekDEC. Reviewed [facility] operating hours and that wait times vary. Reviewed home care advise, ER precautions and reasons to call back. Protocol Used: Urinary Symptoms (Adult) Protocol-Based Disposition: See in Office or Video Visit Today Video visit offer not recorded Positive Triage Question: * Side (flank) or lower back pain present * All higher-acuity triage questions were negative Care Advice Discussed: * Reasons To Call Back - Fever occurs - Pain or burning with urination - Unable to urinate and bladder feels full - You become worse Alan Ingram routed conversation to [place] Triage Nurse7 minutes ago (12:02 PM) Lizbeth Stein [facility] [place] [facility] Clinical Support (supporting Silvina Douglas NP)2 hours ago (9:57 AM) I finished the medication provided to me for bacterial vaginosis I usually have to take the gel forabout two weeks are you able to prescribe the same or something different for a few more days to make sure its gone and not mutating or whatever it does thanks let me know if prescriptions will be sent so I can map out a day to get them before the week is out have a good day documented in this encounter Plan of Treatment Upcoming Encounters Date Type Department Care Team (Late st Contact Info) Description 10/08/2024 11:30 AM EDT Office Visit [facility] MEDICINE [address] [place] [address] Silvina Douglas NP [address] [place] [address] 10/18/2024 2:00 PM EDT Telemedicine [facility] [address] [place] [address] Raymundo Al PharmD [address] [place] [address] documented as of this encounter Visit Diagnoses Not on filedocumented in this encounter Additional Health Concerns Assessment Noted Time PHQ-9 Depression Total Score: 21 025 11:32 AM EST documented as of this encounter Care Teams Bus Girl Relationship Specialty Start Date End Date Silvina Douglas NP [address] [place] [address] PCP - General Family Medicine 06/22/24 Raymundo Al, Pedro [address] [place] [address] Pharmacist Internal Medicine 09/02/24 documented as of this encounter
--- OUTSIDE RECORDS SUMMARY | 2024-09-22 13:54 | XMS_ITS | Encounter Summary ---
Author Organization [employer] Address [address] [place] [address] Care Team Providers Care Cattle Manager Name Role Phone Silvina Douglas NP Primary Care Provider [phone] Raymundo Al PharmD Unavailable [phone] Reason for Visit * Consultation (Routine) - Authorized Specialty Diagnoses / Procedures Referred By Contbeba t Referred To Contact Pharmacy Diagnoses Hypertension, unspecified type Silvina Douglas NP [address] [place] [address] Phone: tel: fax: Referral ID Status Reason Start Date Expiration Date Visits Requested Visits Authorized [id number] Authorized Continuity of Care 08/24/2024 08/24/2025 6 6 Encounter Details Date Type Department Care Team (Latest Contact Info) Description 08/27/2024 11:00 AM EST Telemedicine [facility] [address] [place], [place] [phone] Anna Valdivia PharmD [address] [place], [place] [phone] Hypertension, unspecified type (Primary Dx); Obstructive sleep apnea; Chronic obstructive pulmonary disease, unspecified COPD type (CMS/HCC); Cigarette nicotine dependence without complication; Hyperlipidemia, unspecified hyperlipidemia type; Uncomplicated asthma, unspecified asthma severity, unspecified whether persistent; Encounter for immunization Social History Tobacco Use Types Packs/Day Years [...] as of this encounter Progress Notes * Anna Valdivia PharmD - 08/27/2024 11:00 AM EST Pharmacy Consult Visit Type: MT Visit Pharmacist: Anna Valdivia PharmD Referral Diagnosis: I10 (ICD-10-CM) - Hypertension, unspecified type Referral Expiration: 08/24/2025 Referring Provider: Silvina Douglas NP Pharmacy Recommendations for Provider: Begin medboxes per patient request. Please contact medbox pharmacist with any medication changes (initiations, discontinuation, dose adjustments). Please consider ordering a BMP to assess potassium and kidney function, recommended monitoring parameters 2 weeks after initiation of an angiotensin 2 receptor carlene Please consider initiation of atorvastatin 40 mg once daily (to replace atorvastatin 10 mg) followed by FLP + LFT in 4 to 12 weeks 2017 AHA/ACC guideline on the management of blood cholesterol recommend high intensity statin therapy in patients without diabetes, age 40 to 75 years, LDL-C 70 to 189 mg/dL, and ASCVD 10 year risk greater than 20% Background/ Visit Intake Lizbeth March is a 49 y.o. patient here for a new patient visit. Visit completed via video call . Allergies: is allergic to sulfa antibiotics, sulfamethoxazole-trimethoprim, clindamycin, and metronidazole. Preferred Pharmacy: [facility] - [address] [phone] Medbox: To begin during today's appointment. Assessment & Plan Adherence: History: Medication Reconciliation: Reports use of the following medications that are not currently active in [employer] medlist: Vitamin C 250 mg by mouth twice a week Ferrous gluconate 324 mg by mouth twice a week Denies use of the following medications that are active in [employer] medlist: Symbicort: no fill history, patient denies use OTC medication, vitamin, supplement use: reports Centrum vitamin: 1 tablet by mouth once daily Adherence: Medication Organization: Takes from vials Reports combining the two strengths of bupropion in 1 vial, and all of their hypertension medications in 1 vial Missed doses: Reports frequent forgetfulness in taking medications on weekends Reports frequent forgetfulness in using maintenance inhalers Reports the following barriers to adherence: Difficulty remembering to take medications Read/Write: Yes, in German Reports interest in [facility] medbox program (delivery) Goals of therapy: Improve adherence & minimize missed doses (<2 missed doses/week) Recommendations/Monitoring: Begin medboxes per patient request. Please contact medbox pharmacist with any medication changes (initiations, discontinuation, dose adjustments). Pharmacy has transferred prescriptions from [facility] to [facility] for medbox program Pharmacy updated the preferred pharmacy in EHR Recommended the patient set an alarm to help remembering their medications. Patient verbalized understanding. Recommended the patient coordinate inhaler use with their morning medications. Patient verbalized understanding. Patient agreed to bring a list of topical medications to the pharmacy when dropping off prescriptions (08/30/2024) to update EPIC. Patient forgot to bring list of topical medications to the pharmacy Pharmacy updated medlist in Epic to match patients current medication use Hypertension: Pharmacologic Therapy: Amlodipine 10 mg by mouth once daily Olmesartan- hydrochlorothiazide 20-12.5 mg by mouth once daily History: PCP office visit note (08/24/2024): hydrochlorothiazide 12.5 mg was replaced with olmesartan-hydrochlorothiazide 20-12.5 mg once daily due to uncontrolled hypertension Patient confirmed knowledge of this change, and reports beginning the medication 2-3 days ago Patient reports starting SMBP 2-3 days ago and has been logging results for the upcoming PCP visit Patient was unable to recall values during today's visit Pertinent negatives include chest pain, head ache, blurry vision. Recent Blood Pressure values: BP Readings from Last 4 Encounters: 08/24/24 (!) 165/105 08/11/24 136/88 02/17/24 (!) 144/84 12/22/23 120/70 Pulse Readings from Last 4 Encounters: 08/24/24 76 08/11/24 88 02/17/24 80 12/22/23 88 Lab monitoring Lab Results Component Value Date NA 141 08/24/2024 K 4.5 08/24/2024 CREATININE 1.00 08/24/2024 EGFR 59 08/24/2024 Goals of Therapy per JNC 8: Achieve & maintain BP <140/90mmHg Plan: Please consider ordering a BMP to assess potassium and kidney function, recommended monitoring parameters 2 weeks after initiation of an angiotensin 2 receptor carlene Future consideration: If BP remains > 140/90 mmHg 2 to 4 weeks after starting olmesartan-hydrochlorothiazide 20-12.5 mg, can consider increasing to 40-12.5 mg once daily followed by BMP in 2 weeks Education: Counseling provided to SMBP & log results for review in follow up. ASCVD Risk and Hyperlipidemia Pharmacologic Therapy: Atorvastatin 10 mg by mouth once daily History Patient expressed interest in lowering their cholesterol and is open to increasing the dose of statin therapy Lab monitoring: Lab Results Component Value Date CHOL 237 (H) 08/24/2024 LDLCHOLCAL 167 (H) 08/24/2024 HDL 47 08/24/2024 TRIG 119 08/24/2024 AST 21 08/24/2024 ALT 14 08/24/2024 ALKPHOS 48 12/02/2022 The 10-year ASCVD risk score (Sera MORRISON, et al., 2019) is: 24.7% Values used to calculate the score: Age: 49 years Sex: Female Is Non- : Yes Diabetic: No Tobacco smoker: Yes Systolic Blood Pressure: 165 mmHg Is BP treated: Yes HDL Cholesterol: 47 mg/dL Total Cholesterol: 237 mg/dL Goals of Therapy: ACC/AHA 2018 Cholesterol Guidelines: Ensure evidence based and safe use of medications for primary prevention of ASCVD. Plan: Please consider initiation of atorvastatin 40 mg once daily (to replace atorvastatin 10 mg) followed by FLP + LFT in 4 to 12 weeks 2018 AHA/ACC guideline on the management of blood cholesterol recommend high intensity statin therapy in patients without diabetes, age 40 to 75 years, LDL-C 70 to 189 mg/dL, and ASCVD 10 year risk greater than 20% Asthma/COPD Pharmacologic Therapy: Albuterol 108 mcg/act: inhale 2 puffs by mouth every 4 hours as needed for SOB or wheezing Symbicort 160-4.5 mcg/act: inhale 2 puffs by mouth twice daily Breo Ellipta 200-25 mcg/act: inhale 1 puff by mouth once daily Incruse Ellipta 62.5 mcg/act: inhale 1 puff by mouth once daily History: Patient follows with [facility] pulmonology (Mady Quiroga MD) Per 09/22/2023 pulmonary office note the patient is to continue triple inhaler therapy with Breo Ellipta and Incruse Ellipta Patient reports daily VILMA use, however frequently forgets to use maintenance inhalers Patient denies Symbicort use Goals of Therapy: Per NHL[employer] Asthma Guidelnes/GOLD guidelines: Optimize therapy to achieve symptom control (defined as rescue inhaler use < 2x per week). Prevent hospitalization secondary to exacerbation Plan: Patient is agreeable to work on improving adherence to maintenance inhalers Pharmacy left a message with [facility] pulmonology 2 times (Dale both times) to clarify which inhalers the patient should be using. Waiting for response. Education: Counseled patient on the importance of using maintenance inhaler as prescribed to improve symptom control, reduce the risk of exacerbation, & minimize the need for VILMA. Patient confirmed understanding. Obstructive sleep apnea Pharmacologic therapy Zepbound 2.5 mg subcutaneously once weekly History Patient has an upcoming appointment with sleep medicine PCP 08/24/2024 office visit note: patient was started on Zepbound Patient inquired if Zepbound is ready for pick-up Per PCP progress note (08/24/2024): 02/16/2024 thyroid nodule benign Plan Pharmacy notified that there is a pending PA for Zepbound, and that pharmacy will contact them whenapproved. Patient verbalized understanding. Tobacco Dependence (Stage: Action) Pharmacologic Therapy: Nicotine patch 14 mg/[address] 1 patch topically once daily Nicotine polacrilex 2 mg: chew 1 piece if needed in the morning, noon, in the evening, and at bedtime History: Patient reported not using the nicotine patch and gum daily, did not have a reason as to why Reports being smoke-free for almost 2 weeks. Patient was congratulated Reports being in a frequent cycle of quitting and then starting smoking again Expressed interest in [facility] tobacco cessation for assistance with smoking cessation and more frequent monitoring Goals of Therapy: Per the [facility] Treating Tobacco Use and Dependence Clinical Practice Guideline,assist the patient to achieve smoking cessation via assessment of desire to quit and administrationof smoking cessation aids as indicated. Plan: Patient was scheduled for [facility] tobacco cessation services Friday08/30/2024 Immunizations History: Immunization History Administered Date(s) Administered Hep B, Unspecified 04/02/2001, 04/16/2001 Hep B, adult 09/02/2017, 08/05/2018 Influenza injectable quadrivalent preservative free 07/04/2023 Influenza, Unspecified 05/28/2007, 05/16/2009, 05/19/2012 Influenza, seasonal, injectable, preservative free 05/19/2024 Moderna Covid-19 Vaccine 12+ 08/16/2021, 07/10/2022 PPD Test 08/05/2018 Pneumococcal Conjugate PCV 20 12/22/2023 Pneumococcal Polysaccharide PPSV23 08/05/2018 Td (adult), unspecified 05/28/2007 Tdap 09/02/2017 Goals of therapy: Ensure patient is up to date per the CDC Adult Immunization Schedule. Assessment/Plan: COVID-19 8972-2438 vaccine: Due. Patient declined. Next dose due annually. Hepatitis A series (Requests vaccination): Due . Plan: Patient consented to the Hepatitis A vaccination. Appointment has been scheduled on 09/03/2024 Patient declined COVID-19 vaccine. Pharmacy deferred in EPIC Education: Indication of all recommended vaccines Patient Action Plan Reviewed today with plan to revisit at follow up in 1 month: Continue to adhere to medication Bring medications to [facility] pharmacy 08/30/2024 for medbox initiation Monitor blood pressure as directed Return to [facility] pharmacy 09/03/2024 to black pickler first medbox Receive all recommended vaccinations Attend follow up appointments documented in this encounter Plan of Treatment Upcoming Encounters Date Type Department Care Team (Late st Contact Info) Description 10/08/2024 11:30 AM EDT Office Visit [facility] [address] [place] [address] Silvina Douglas NP [address] [place] [address] 10/18/2024 2:00 PM EDT Telemedicine [facility] [address] [place] [address] Raymundo Al, PharmD [address] [place] [address] documented as of this encounter Visit Diagnoses Diagnosis Hypertension, unspecified type- Primary Obstructive sleep apnea Obstructive sleep apnea (adult) (pediatric) Chronic obstructive pulmonary disease, unspecified COPD type ([facility]) Cigarette nicotine dependence without complication Hyperlipidemia, unspecified hyperlipidemia type Uncomplicated asthma, unspecified asthma severity, unspecified whether persistent Encounter for immunization documented in this encounter Additional Health Concerns Assessment Noted Time PHQ-9 Depression Total Score: 21 025 11:32 AM EST documented as of this encounter Care Teams Cattle Manager Relationship Specialty Start Date End Date Silvina Douglas NP [address] [place] [address] PCP - General Family Medicine 06/22/24 Raymundo Al, PharmD [address] [place] [address] Pharmacist Internal Medicine 09/02/24 documented as of this encounter
--- OUTSIDE RECORDS SUMMARY | 2024-09-22 13:54 | XMS_ITS | Encounter Summary ---
Author Organization [employer] Address [address] [facility] [address] [place] [address] Care Team Providers Care Director Diversity Name Role Phone Silvina Douglas NP Primary Care Provider [phone] Raymunod Al PharmD Unavailable [phone] Encounter Details Date Type Department Care Team (Late st Contact Info) Description 09/13/2024 2:00 PM EST Telemedicine [facility] [address] [place], [place] [phone] Raymundo Al, PharmD [address] [place] [address] Nicotine dependence, uncomplicated, unspecified nicotine product type (Primary Dx) Social History Tobacco Use Types Packs/Day Years [...] as of this encounter Progress Notes * Raymundo Al PharmD - 09/13/2024 2:00 PM EST Pharmacy Consult Visit Type: CDTM Pharmacist: Raymundo Al PharmD Referring Provider: Name Referral Dx: F17.200 (ICD-10-CM) - Nicotine dependence, uncomplicated, unspecified nicotine product type Date Referred: 08/27/2024 Visit #: 2 Lizbeth March is a 49 y.o. year old patient here for follow-up visit completed over the phone. Subjective History: General / Intake (updated 09/13/2024) Allergies: is allergic to sulfa antibiotics, sulfamethoxazole-trimethoprim, clindamycin, and metronidazole. Read/Write: Yes, in Lithuanian Recent Hospitalizations: No Social History as reported by patient: Tobacco: See Smoking Cessation Alcohol: Current (once a month, trigger for cigarettes) Caffeine: Current, no coffee, soda daily Illicit drugs: Current Marijuana (couple of times a month) Diet: Historically tended to smoke after meals Exercise: Denies Adherence / patient self-management Uses medboxes from [facility] pharmacy Reports satisfaction with Medbox program. Denies skipped or omitted doses. OTC medication, vitamin, supplement use: Centrum for Women 50+ daily Smoking cessation Past Medical History: Negative for: seizure disorder, chest pain, eating disorder, suicidal ideation, neuropsychiatric disorder Positive for depression, anxiety (prescribed bupropion XL by psychiatrist) Smoking History Reports smoking 1 ppd for 34 years. Recently reduced to 1/2 ppd before trying to stop entirely 2 weeks ago. First cigarette within 30 minutes of waking. Endorses smoking in the home, Denies awaking at night to smoke. Endorses triggers such as anger, stress, anxiety, being around other smokers (aunt) Past Quit Attempts Endorses 3 previous quit attempts, most recent quit attempt is currently ongoing (2 weeks), longestquit attempt lasted 8 months 2022: 8 months of cessation started with provider saying You fahad . Patient used Nicotine patch, gum, Chantix for about 3 months. Depression worsened at the end of the 8 month period, which led to patient smoking again. Tried nicotine patches, nicotine gum, bupropion, and varenicline to quit previously Current Quit Attempt Motivational factors for cessation: Preserve Health, Be more active without SOB/Cough, be healthierfor her kids, desires weight loss surgery Barriers to cessation: Mental Health (counselor session every 2 weeks, psychiatrist once a month) Patient declares readiness to quit is a 10 out of 10. Patient confidence in ability to quit smoking is 7 out of 10. Patient quit date: 08/16/2024 Denies use of patches, smoked 4 cigarettes last week. Lozenges were not filled for unknown reason, therefore patient did not start patches. Patient requests: nicotine and chantix in combination. Patient reports feeling great with regards to mood and pharmacotherapy has been stable. Patient denies siucidal ideation, including during worst incidents of depression. 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, iron deficiency), G6PD Deficiency, vitamin D deficiency Recent labs: Renal function (08/24/2024): eGFR: 59 mL/min/1.73 m2 SCr = 1.00 mg/dL CrCl (AdjBW)= 87 mL/min Lab Results Component Value Date ALT 14 08/24/2024 AST 21 08/24/2024 LDLCHOLCAL 167 (H) 08/24/2024 TRIG 119 08/24/2024 K 4.5 08/24/2024 NA 141 08/24/2024 MICROALBCREU 16.6 02/17/2024 CREATININE 1.00 08/24/2024 EGFR 59 08/24/2024 HGBA1C 5.5 11/11/2023 HGBA1C 4.8 12/02/2022 Recent blood pressure readings: BP Readings from Last 4 Encounters: 08/24/24 (!) 165/105 08/11/24 136/88 02/17/24 (!) 144/84 12/22/23 120/70 Pulse Readings from Last 4 Encounters: 08/24/24 76 08/11/24 88 02/17/24 80 12/22/23 88 Immunizations Due: COVID-19 and HepA Patient requested HepA vaccine, scheduled 09/03/2024 (canceled) Patient declined Covid-19 vaccine 08/30/2024 Preferred Pharmacy: [facility] [address] [facility] [address] [facility] [phone] Assessment/Plan: Smoking Cessation (Stage: Action) Pharmacotherapy: Nicotine 14 mg patch, apply 1 patch daily as directed x6 wks (starting dose) Nicotine 4 mg lozenge use 1 as directed every 1-2 hours PRN cravings (combo therapy) Goals of therapy per the [facility] Treating Tobacco Use and Dependence Clinical Practice Guideline: Achieve cessation via pharmacologic & non-pharmacologic intervention Plan: Patient very motivated to quit smoking, but not confident NRT will be successful. Pharmacist agrees to start therapy with Chantix starter box (varenicline 0.5 mg daily for 3 days, 0.5 mg BID x 4 days, 1 mg PO BID thereafter). Patient agrees to monitor mood and discuss any changes with therapist. Agrees to contact [facility] right away if experience significant change in mood, suicidal ideation, or intolerable side effects. Patient requesting NRT with Chantix, but pharmacist counseled the patient that the combination is not a recommended therapy. Although not contraindicated, there is inconclusive evidence regarding efficacy and increased risk of AILYN. Patient has already set a quit date and tried to abstain from cigarettes, but agrees to abstain from cigarettes and NRT entirely 7 days after initiating varenicline. Patient to follow up in CD in 4 weeks for ongoing support. Education: Use of nicotine patch (can remove prior to bed, rotate site, remove prior to MRI or other imaging). Use of nicotine lozenge (dissolve over 20-30 mins, avoid food/drink for 15 mins prior, max 20 per day). Counseling provided on risks of concomitant tobacco & NRT use, patient confirmed understanding. documented in this encounter Plan of Treatment Upcoming Encounters Date Type Department Care Team (Late st Contact Info) Description 10/08/2024 11:30 AM EDT Office Visit [facility] [address] [place] [address] Silvina Douglas NP [address] [place] [address] 10/18/2024 2:00 PM EDT Telemedicine [facility] [address] [place] [address] Raymundo Al, PharmD [address] [place] [address] documented as of this encounter Visit Diagnoses Diagnosis Nicotine dependence, uncomplicated, unspecified nicotine product type- Primary documented in this encounter Additional Health Concerns Assessment Noted Time PHQ-9 Depression Total Score: 21 025 11:32 AM EST documented as of this encounter Care Teams Director Diversity Relationship Specialty Start Date End Date Silvina Douglas NP [address] [place] [address] PCP - General Family Medicine 06/22/24 Raymundo Al, PharmD [address] [place] [phone] Pharmacist Internal Medicine 09/02/24 documented as of this encounter
--- OUTSIDE RECORDS SUMMARY | 2024-09-22 13:54 | XMS_ITS | Encounter Summary ---
Author Organization [employer] Address [address] [place] [address] 7 [place] [address] Care Team Providers Care Seat Builder Name Role Phone Silvina Douglas NP Primary Care Provider [phone] Raymundo Al PharmD Unavailable Reason for Visit * Reason Onset Date Comments Prior Authorization 09/13/2024 Zepbound Encounter Details Date Type Department Care Team ([facility] st Contact Info) Description 09/13/2024 Telephone [facility] [address] [place], [place] [phone] Silvina Douglas NP [address] [place], [place] [phone] Prior Authorization (Zepbound) Social History Tobacco Use Types Packs/Day Years [...] encounter Miscellaneous Notes * Telephone Encounter - Madeline Prince - 09/17/2024 8:22 AM EST PA shayan Chery signed and faxed to [facility]. Confirmation received and sent to scan. If patient calls to check status on above, please advise them to contact Pharmacy . * Telephone Encounter - Madeline Prince - 09/13/2024 3:54 PM EST PA shayan Zepbound from [employer] placed on PCP desk for signature. documented in this encounter Plan of Treatment Upcoming Encounters Date Type Department Care Team (Late st Contact Info) Description 10/08/2024 11:30 AM EDT Office Visit [facility] [address] [place] [address] Silvina Douglas NP [address] [place] [address] 10/18/2024 2:00 PM EDT Telemedicine [facility] [address] [place], [place] [phone] Raymundo Al, PharmD [address] [place] [address] documented as of this encounter Visit Diagnoses Not on filedocumented in this encounter Additional Health Concerns Assessment Noted Time PHQ-9 Depression Total Score: 21 025 11:32 AM EST documented as of this encounter Care Teams Seat Builder Relationship Specialty Start Date End Date Silvina Douglas NP [address] [place] [address] PCP - General Family Medicine 06/22/24 Raymundo Al, PharmD [address] [place] [address] Pharmacist Internal Medicine 09/02/24 documented as of this encounter
--- OUTSIDE RECORDS SUMMARY | 2024-09-22 13:54 | XMS_ITS | Encounter Summary ---
Author Organization [employer] Address [address] [facility] [address]t [place] [address] Care Team Providers Care Power Barker Operator Name Role Phone Silvina Douglas NP Primary Care Provider [phone] Encounter Details Date Type Department Care Team (Latest Contact Info) Description 08/27/2024 Travel Social History Tobacco Use Types Packs/Day [...] Description 10/08/2024 11:30 AM EDT Office Visit [facility] [address] [place] [address] Silvina Douglas NP [address] [place] [address] 10/18/2024 2:00 PM EDT Telemedicine [facility] [address] [place] [address] Raymundo Al, PharmD [address] [place] [address] documented as of this encounter Visit Diagnoses Not on filedocumented in this encounter Additional Health Concerns Assessment Noted Time PHQ-9 Depression Total Score: 21 025 11:32 AM EST documented as of this encounter Care Teams Power Barker Operator Relationship Specialty Start Date End Date Silvina Douglas NP [address] [place] [address] PCP - General Family Medicine 06/22/24 documented as of this encounter
--- OUTSIDE RECORDS SUMMARY | 2024-09-22 13:54 | XMS_ITS | Encounter Summary ---
Author Organization [email or web address] Address [address] [facility] [address] [place] [address] Care Team Providers Care Nursing Student Name Role Phone Silvina Douglas NP Primary Care Provider [phone] Raymundo Al PharmD Unavailable [phone] Reason for Visit * Reason Onset Date Comments Results 09/21/2024 Encounter Details Date Type Department Care Team (Late st Contact Info) Description 09/21/2024 Telephone [facility] [address] [place] [address] Vibha Wyatt, MARISOL Results Social History Tobacco Use Types Packs/Day Years [...] encounter Miscellaneous Notes * Telephone Encounter - Vibha Wyatt RN - 09/21/2024 9:14 AM EST Images from the original note were not included. TC placed to pt in regards to results message below about elevated cholesterol levels. Pt states that she was informed about these results from PCP Silvina Douglas and currently takes the prescribed atorvastatin 10 MG daily. Pt given lifestyle recommendations on how to lower the cholesterol and pt was agreeable and will call back as needed. TONY Chun P [facility] Team Nurses Hi-I am not sure why these labs look like they were ordered by Dr. Meyer given she was out of the office on the date of service however patient's cholesterol was elevated but appears that pt started on statin via PCP. Please confirm patient has started statin and is taking at bedtime and reinforcedplan for increased exercise and high-fiber diet given elevated cholesterol. Apologized to patient if duplicate call-I could not locate result note reviewing labs specifically with patient that what appears they likely were reviewed with her. The 10-year ASCVD risk score (Sera MORRISON, et al., 2019) is: 24.7% Values used to calculate the score: Age: 49 years Sex: Female Is Non- : Yes Diabetic: No Tobacco smoker: Yes Systolic Blood Pressure: 165 mmHg Is BP treated: Yes HDL Cholesterol: 47 mg/dL Total Cholesterol: 237 mg/dL documented in this encounter Plan of Treatment Upcoming Encounters Date Type Department Care Team (Late st Contact Info) Description 10/08/2024 11:30 AM EDT Office Visit [facility] [address] [place] [id number] Silvina Douglas NP [address] [place] [address] 10/18/2024 2:00 PM EDT Telemedicine [facility] [address] [place] [id number] Raymundo Al, Pedro [address] [place] [id number] documented as of this encounter Visit Diagnoses Not on filedocumented in this encounter Additional Health Concerns Assessment Noted Time PHQ-9 Depression Total Score: 21 025 11:32 AM EST documented as of this encounter Care Teams Nursing Student Relationship Specialty Start Date End Date Silvina Douglas NP [address] [place] [id number] PCP - General Family Medicine 06/22/24 Raymundo Al, Pedro [address] [place] [id number] Pharmacist Internal Medicine 09/02/24 documented as of this encounter
--- OUTSIDE RECORDS SUMMARY | 2024-09-22 13:54 | XMS_ITS | Clinical Summary ---
Author Organization [employer] Address [address] [place] [address] [address] [place] [address] Care Team Providers Care Administrative Fellow Name Role Phone Silvina Douglas NP Primary Care Provider [phone] Raymundo Al PharmD Unavailable [phone] Allergies Active Allergy Reactions Criticality Noted Date Comments Clindamycin Rash Low 01/26/2019 Patient reports rash Metronidazole Rash Low 07/10/2016 metronidazole pt reports itchy rash with oral pill. States she tolerated vaginal cream well. 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 024 Active albuterol 108 (90 Base) MCG/ACT inhalerIndicati ons:Cigarette nicotine dependence without complication Inhale 2 puffs every 4 (four) hours if needed for shortness of breath or wheezing. 18 g 3 024 Active lidocaine (Lidoderm) 5 % patch Apply 1 patch topically Once per day. Remove & discard patch within 12 hours or as directed by MD. 15 patch 024 Active buPROPion XL (Wellbutrin XL) 300 MG 24 hr tablet Take 300 mg by mouth Once per day. Do not crush, chew, or split. 450 mg a day Active Incruse Ellipta 62.5 MCG/ACT aerosol powder INHALE 1 PUFF BY MOUTH EVERY 24 HOURS DOSES SHOULD BE TAKEN AT LEAST 24 HOURS APART Active buPROPion XL (Wellbutrin XL) 150 MG 24 hr tablet Take 1 tablet by mouth. ALONG WITH 300MG FOR A TOTAL OF 450MG Active Breo Ellipta 200-25 MCG/ACT aerosol powder Take 1 puff by mouth Once per day. Active ibuprofen 800 MG tablet Take 1 tablet by mouth every 8 (eight) hours if needed. Active Vyvanse 60 MG capsule Take 1 capsule by mouth Once per day. Active ketoconazole (NIZOral) 2 % cream Apply topically Once per day. 50 g Active amLODIPine (Norvasc) 10 MG tabletIndicatio ns:Essential hypertension Take 1 tablet (10 mg) by mouth Once per day. TAKE 1 TABLET(10 MG) BY MOUTH IN THE MORNING 90 tablet Active atorvastatin (Lipitor) 10 MG tablet Take 1 tablet (10 mg) by mouth Once per day. 90 tablet 025 2025 Active benzoyl peroxide (PanOxyl Foaming Wash) 10 % external washIndications :Acne, unspecified acne type Apply topically 2 times daily. 227 g 1 025 2025 Active cholecalciferol (Vitamin D-3) 50 MCG (2000 UT) capsule Take 1 capsule (50 mcg) by mouth Once per day. 90 capsule 1 025 2025 Active Fluocinolone Acetonide Scalp (Ojai-Smoothe/ FS Scalp) 0.01 % oilIndications: Folliculitis Apply 2 times weekly at night 118.28 mL Active ketoconazole (Nizoral) 2 % shampooIndicati ons:Folliculiti s Apply topically 2 (two) times a week. 120 mL 1 Active olmesartan-hydr oCHLOROthiazide (Benicar HCT) 20-12.5 MG tablet Take 1 tablet by mouth Once per day. 90 tablet 025 2024 Active Ascorbic Acid (vitamin C) 250 MG tablet Take 1 tablet by mouth. Twice a week Active ferrous gluconate (Fergon) 324 (38 Fe) MG tablet Take 1 tablet by mouth. Twice a week Active Multiple Vitamins-Minera ls (CENTRUM ADULT PO) Take 1 tablet by mouth Once per day. Active Varenicline Tartrate, Starter, (Chantix Starting Month ) 0.5 MG X 11 & 1 MG X 42 tablet therapy packIndications :Nicotine dependence, uncomplicated, unspecified nicotine product type Take 0.5 mg by mouth Once per day for 3 days, THEN 0.5 mg 2 times daily for 4 days, THEN 1 mg 2 times daily for 21 days. 53 each 025 2024 Active clotrimazole (Lotrimin) 1 % cream Apply topically 2 times daily for 28 days. 30 g 2 025 2024 Active Symbicort 160-4.5 MCG/ACT inhaler Inhale 2 puffs 2 times daily. 023 2024 Discontinued(M ed list cleanup (will not trigger notification to Pharmacy)) ketoconazole (Nizoral) 2 % shampooIndicati ons:Folliculiti s Apply topically 2 (two) times a week. 120 mL 1 024 2024 Discontinued(R eorder (will not trigger notification to Pharmacy)) benzoyl peroxide (PanOxyl Foaming Wash) 10 % external washIndications :Acne, unspecified acne type Apply topically 2 times daily. 227 g 1 024 2024 Discontinued(R eorder (will not trigger notification to Pharmacy)) cholecalciferol (Vitamin D-3) 50 MCG (2000 UT) capsule Take 1 capsule (50 mcg) by mouth Once per day. 90 capsule 1 024 2024 Discontinued(R eorder (will not trigger notification to Pharmacy)) Fluocinolone Acetonide Scalp (Ojai-Smoothe/ FS Scalp) 0.01 % oilIndications: Folliculitis Apply 2 times weekly at night 118.28 mL 024 2024 Discontinued(R eorder (will not trigger notification to Pharmacy)) hydroCHLOROthia zide 12.5 MG tablet Take 1 tablet (12.5 mg) by mouth Once per day. 90 tablet 024 2024 Discontinued(T herapy completed) atorvastatin (Lipitor) 10 MG tablet Take 1 tablet (10 mg) by mouth Once per day. 90 tablet 024 2024 Discontinued(R eorder (will not trigger notification to Pharmacy)) amLODIPine (Norvasc) 10 MG tabletIndicatio ns:Essential hypertension Take 1 tablet (10 mg) by mouth Once per day. TAKE 1 TABLET(10 MG) BY MOUTH IN THE MORNING 90 tablet 2024 Discontinued(R eorder (will not trigger notification to Pharmacy)) nicotine polacrilex (Nicorette) 2 MG gum Chew 1 each (2 mg) if needed in the morning, at noon, in the evening, and at bedtime for smoking cessation. 100 each 024 2024 Discontinued(D ose adjustment) nicotine (Nicoderm CQ) 14 MG/24HR patch Place 1 patch on the skin 1 (one) time each day at the same time. 30 patch 2024 Discontinued(D uplicate order (will not trigger notification to Pharmacy)) olmesartan-hydr oCHLOROthiazide (Benicar HCT) 20-12.5 MG tablet Take 1 tablet by mouth Once per day. 90 tablet 025 2024 Discontinued olmesartan-hydr oCHLOROthiazide (Benicar HCT) 20-12.5 MG tablet Take 1 tablet by mouth Once per day. 90 tablet 025 2024 Discontinued(R eorder (will not trigger notification to Pharmacy)) Tirzepatide-William ght Management (Zepbound) 2.5 MG/0.5ML solution auto-injectorIn dications:Hyper tension, unspecified type,Obstructiv e sleep apnea,Morbid obesity (CMS/HCC) Inject 0.5 mL (2.5 mg) under the skin 1 (one) time per week for 28 days. 2 mL 025 2024 Discontinued Tirzepatide-William ght Management (Zepbound) 2.5 MG/0.5ML solution auto-injectorIn dications:Hyper tension, unspecified type,Obstructiv e sleep apnea,Morbid obesity (CMS/HCC) Inject 0.5 mL (2.5 mg) under the skin 1 (one) time per week for 28 days. 2 mL 025 2024 nicotine (Nicoderm CQ) 14 MG/24HR patchIndication s:Nicotine dependence, uncomplicated, unspecified nicotine product type Place 1 patch on the skin 1 (one) time each day at the same time. 42 patch 025 2024 Discontinued(M ed list cleanup (will not trigger notification to Pharmacy)) nicotine polacrilex (Nicotine Mini) 4 MG lozengeIndicati ons:Nicotine dependence, uncomplicated, unspecified nicotine product type Dissolve 1 lozenge by mouth every 1-2 hours as needed for cravings 72 lozenge 025 2024 Discontinued(M ed list cleanup (will not trigger notification to Pharmacy)) metroNIDAZOLE 1.3 % gel Insert 1 Applicatorful into the vagina 1 (one) time for 1 dose. 5 g 025 2024 Discontinued(R eorder (will not trigger notification to Pharmacy)) clotrimazole (Lotrimin) 1 % cream Apply topically 2 times daily for 28 days. 30 g 2 025 2024 Discontinued(R eorder (will not trigger notification to Pharmacy)) fluconazole (Diflucan) 150 MG tablet Take 1 tablet (150 mg) by mouth 1 (one) time for 1 dose. 1 tablet 025 2024 Discontinued(R eorder (will not trigger notification to Pharmacy)) fluconazole (Diflucan) 150 MG tablet Take 1 tablet (150 mg) by mouth 1 (one) time for 1 dose. 1 tablet 025 2024 Discontinued(E ntered in error) metroNIDAZOLE 1.3 % gel Insert 1 Applicatorful into the vagina 1 (one) time for 1 dose. 5 g 025 2024 fluconazole (Diflucan) 150 MG tablet Take 1 tablet (150 mg) by mouth 1 (one) time for 1 dose. 1 tablet 025 2024 Discontinued(D uplicate order (will not trigger notification to Pharmacy)) Hospital, Clinic, or Other Facility Administered Medication Ordered Dose Route Frequency Start Date End Date Status ipratropium-albutero l (Duo-Neb) 0.5-2.5 mg/3 mL nebulizer solution 3 mgIndications:COPD with acute exacerbation ([facility]) 3 mg NEBULIZATION Once 09/21/2024 09/21/2024 Ended Active Problems Problem Noted Date Diagnosed Date COPD with acute exacerbation 09/21/2024 Assessment & Plan (09/21/2024 7:08 PM EST): DuoNeb nebulizer done today. She is to continue albuterol every 6 hours at home for the next 5 days Restart Breo daily and follow-up if symptoms do not improve within 1 week. Advised to quit smoking Subacute vaginitis 09/21/2024 Assessment & Plan (09/21/2024 7:17 PM EST): Prescription for metronidazole intravaginal gel x 1 dose (she states that she tolerates gel as opposed to cream that causes irritation). Alternatively, I will prescribe MetroGel x 7 days if that 1 day dose is not covered by insurance. She will use Diflucan x 1 at the end of the treatment as she states she usually has candidiasis after metronidazole. Advised to avoid vaginal douches, antibiotic use that is not prescribed etc (all medications are sent to [facility] pharmacy on [address] at patient's request as her regular pharmacy is closed at this time, I called pharmacy and confirmed that they received the prescription and needed insurance information). Will follow results of vaginal swab SOB (shortness of breath) 08/24/2024 Assessment & Plan (08/24/2024 6:40 PM EST): Increased dyspnea, encouraged ongoing exercise, wt management smoking cessation bp control Hypertension 08/24/2024 Assessment & Plan (08/24/2024 6:39 PM EST): Above goal, meds adjusted below Measure home bp Return to clinic in 4-6 weeks sooner prn Morbid obesity 08/24/2024 Assessment & Plan (08/24/2024 6:35 PM EST): With sleep apnea, trial glp-1 Pt would also like referral to rhonda russo loss Tinea pedis of both feet 08/24/2024 Assessment & Plan (08/24/2024 6:39 PM EST): Ketoconazole topical rx Dietary counseling 08/24/2024 Assessment & Plan (08/24/2024 6:43 PM EST): Encouraged minimizing processed foods and increasing whole foods particularly vegetables Exercise counseling 08/24/2024 Assessment & Plan (08/24/2024 6:43 PM EST): Encouraged daily movement, working up to 30 minutes daily HLD (hyperlipidemia) 12/22/2023 Prolonged Q-T interval on [...] Discuss next visit Obstructive sleep apnea 08/07/2022 Assessment & Plan (08/24/2024 6:39 PM EST): Upcoming visit with sleep medicine Menorrhagia with regular cycle 03/27/2021 Episodic mood [...] 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 Advised to treat COPD exacerbation as above. Advised to take amlodipine daily as opposed to as needed. Follow-up BP with RN in 3 to 4 weeks and follow-up with PCP as scheduled Assessment & Plan (04/04/2023 4:50 PM EDT): [...] Encounters Date Type Department Care Team Description 09/21/2024 5:40 PM EST Office Visit [facility] [address] [place] [phone] Garima Steinberg MD Subacute vaginitis (Primary Dx); COPD with acute exacerbation ([facility]); Essential hypertension; Dysuria 09/21/2024 Telephone [facility] [address] [place] [address] [phone] Vibha Wyatt, MARISOL Results 09/15/2024 Telephone [facility] [address] [place] [phone] Silvina Douglas NP Nurse Triage 09/13/2024 2:00 PM EST Telemedicine [facility] [address] [place] [phone] Raymundo Al, PharmD Nicotine dependence, uncomplicated, unspecified nicotine product type (Primary Dx) 09/13/[address] [phone] Silvina Douglas NP Prior Authorization (Zepbound) 08/30/2024 3:30 PM EST Telemedicine [address] [phone] Raymundo Al PharmD Nicotine dependence, uncomplicated, unspecified nicotine product type (Primary Dx) 08/30/2024 Refill [facility] [address] [place] [address] Silvina Douglas NP Essential hypertension; Acne, unspecified acne type; Folliculitis 08/27/2024 11:00 AM EST Telemedicine [address] [phone] Anna Valdivia PharmD Hypertension, unspecified type (Primary Dx); Obstructive sleep apnea; Chronic obstructive pulmonary disease, unspecified COPD type (CMS/HCC); Cigarette nicotine dependence without complication; Hyperlipidemia, unspecified hyperlipidemia type; Uncomplicated asthma, unspecified asthma severity, unspecified whether persistent; Encounter for immunization 08/27/2024 Travel 08/27/[address] [phone] Anna Valdivia PharmD 08/24/2024 11:00 AM EST Office Visit [address] [phone] Silvina Douglas NP SOB (shortness of breath) (Primary Dx); Hypertension, unspecified type; Obstructive sleep apnea; Morbid obesity (CMS/HCC); Tinea pedis of both feet; Dietary counseling; Exercise counseling; Chronic obstructive pulmonary disease, unspecified COPD type (CMS/HCC); 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) 08/24/[address] [phone] Silvina Douglas NP 08/24/[address] [phone] Silvina Douglas NP 08/24/2024 Travel 08/18/2024 Travel 08/13/2024 Telephone [facility] [address] [place] [phone] Delia Doe, MARISOL Call Back Request 08/13/2024 Orders Only [facility] [address] [place] [phone] Maria D Varela NP Acute cystitis without hematuria (Primary Dx); Bacterial vaginosis 08/12/2024 Telephone [facility] [address] [place] [phone] Hailey Morales MA Chart Prep 08/11/2024 6:20 PM EST Office Visit [facility] [address] [place] [phone] Maria D Varela NP Frequent urination (Primary Dx); Abnormal urinalysis; Wheezing; Vaginal discharge 08/11/2024 Patient Outreach [facility] [address] [place] [phone] Silvina Douglas NP Care Coordination ([facility] outreach for [facility] utilities and foos - LVM ) 08/11/2024 Patient Outreach [facility] [address] [place] [phone] Silvina Douglas NP Pre-visit Planning (SDOH screeningpositive and tobacco screening positive) 06/26/2024 Refill [facility] [address] [place] [phone] Carmina Colorado MD 06/26/2024 Refill [facility] [address] [place] [phone] Carmina Colorado MD Folliculitis; Essential hypertension from Last 3 Months Immunizations Name Administration Dates Next Due Hep B, Unspecified 04/16/2001,04/02/2001 Hep B, adult 08/05/2018,09/02/2017 Influenza injectable quadriv alent preservative free 07/04/2023 Influenza, Unspecified 05/19/2012,05/16/2009,02/2007 Influenza, seasonal, injecta ble, preservative free 05/19/2024 Moderna Covid-19 Vaccine 12+ 08/16/2021 PPD Test 08/05/2018 Pfizer Covid-19 Vaccine 12+ 08/30/2024(Deferred: Patient decision) Pneumococcal Conjugate PCV 20 12/22/2023 Pneumococcal Polysaccharide [...] Never Tobacco Cessation:Ready to Q uit: Not Asked; Counseling Given: Not Answered Comments:Started 15 y of age until now,was [...] Sign Reading Time Taken Comments Blood Pressure 165/110 09/21/2024 5:14 PM EST Pulse 88 09/21/2024 5:14 PM EST Temperature 37 ??C (98.6 ??F) 09/21/2024 5:14 PM EST Respiratory Rate 24 09/21/2024 5:14 PM EST Oxygen Saturation 96% 09/21/2024 5:14 PM EST Inhaled Oxygen Concentration - - Weight 125 kg (275 lb 4 oz) 09/21/2024 5:[address] Height 160 cm (5' 3 ) 09/21/2024 5:14 PM EST Body Mass Index 48.76 09/21/2024 5:14 PM EST Plan of Treatment Upcoming Encounters Date Type Department Care Team (Late st Contact Info) Description 10/08/2024 11:30 AM EDT Office Visit [facility] [address] [place] [phone] Silvina Douglas, UNDERGROUND ELECTRICIAN [address] [place] [address] 10/18/2024 2:00 PM EDT Telemedicine [facility] [address] [place] [phone] Raymundo Al, PharmD [address] [place] [address] Health Maintenance Due Date Last Done Comments CT Colonography 1975 Colonoscopy 1975 FIT 1975 FOBT 1975 Sigmoidoscopy 1975 Family Planning (PISQ) 1990 Hepatitis A Vaccines (1 of 2 - Risk 2-dose series) 1994 Pap Smear 1996 Cervical Cancer Screening 2005 HPV/Cotest 2005 Depression Monitoring (PHQ-9) 02/21/2025 08/24/2024, 08/24/2024 Zoster Vaccines (1 of 2) 2025 Mammogram 04/12/2025 04/12/2023, 04/12/2023 SDOH Screening 08/11/2025 08/11/2024 Alcohol/Substance Use Screening 08/24/2025 08/24/2024 Depression Screening 08/24/2025 08/24/2024, 08/24/19 Tobacco Screening 09/21/2025 09/21/2024 Colorectal Cancer Screening 06/26/2026 FIT DNA/Cologuard 06/26/2026 06/26/2023 DTaP/Tdap/Td Vaccines (2 - Td or Tdap) 09/02/2027 09/02/2017, 05/28/2007 Lipid Panel 08/24/2029 08/24/2024, 10/20, 12/02/2022 RSV Patients and Patients Aged 60 years or older (1 - 1-dose 75+ series) 2050 Hepatitis B Vaccines Completed 08/05/2018, 09/02/2017, 04/16/2001, Additional history exists COVID-19 Vaccine Discontinued 07/10/2022, 08/16/2021 HIV Screening Completed 11/11/2023 Hepatitis C Screening [...] Procedure Name Priority Date/Time Associated Diagnosis Comments POCT URINALYSIS DIPSTICK Routine 09/21/2024 5:27 PM EST Dysuria IRON AND TOTAL IRON BINDING CAPACITY Routine 08/24/2024 12:16 PM EST SOB (shortness of breath) CBC WITH AUTO DIFFERENTIAL Routine 08/24/2024 12:16 PM EST SOB (shortness of breath) LIPID PANEL, STANDARD Routine 08/24/2024 12:16 PM EST Hyperlipidemia, unspecified hyperlipidemia type COMPREHENSIVE METABOLIC PANEL Routine 08/24/2024 12:16 PM EST Hyperlipidemia, unspecified hyperlipidemia type FERRITIN Routine 08/24/2024 12:16 PM EST Iron deficiency anemia, unspecified iron deficiency anemia type URINALYSIS, COMPLETE Routine 08/11/2024 7:18 PM EST [...] Relevant to Health Maintenance Results * (ABNORMAL) POCT Urinalysis (09/21/2024 5:27 PM EST) Only the most recent of2 resultswithin the time period is included. Color, UA Yellow Clarity, UA Clear Glucose, UA Negative Bilirubin, UA Negative Ketones, UA Negative Spec Grav, UA 1.020 Blood, UA Positive(A) Negative, None Detected Comment:Large pH, UA 7.0 Protein, UA Trace Comment:100mg Urobilinogen, UA 0.2 Leukocytes, UA Trace Negative, Rare, Trace Nitrite, UA Negative Negative, None Detected Appearance, UA clear QC Media Lot # [id number] Lot# Expiration Date Urine 09/21/2024 5:27 PM EST Garima Steinberg MD POINT OF CARE TEST ENTER /EDIT ORDERABLES Final Result * (ABNORMAL) CBC auto differential (08/24/2024 12:16 PM EST) White Blood Count 5.1 4.8 - 10.8 X10*3/uL [facility] Red Blood Count 5.33 4.20 - 5.50 X10*6/uL [facility] Hemoglobin 13.7 12.0 - 16.0 g/dl [facility] Hematocrit 44.7 37.0 - 47.0 % [facility] Mean Corpuscular Volume 83.9 80.0 - 98.0 fL [facility] Mean Corpuscular Hemoglobin 25.7(L) 27.0 - 33.0 pg [facility] Mean Corpuscular HGB Conc 30.6(L) 31.0 - 35.0 g/dl [facility] Red Cell Distribution Width 13.4 11.0 - 16.0 % [facility] Platelet Count 250 160 - 400 X10*3/uL [facility] Mean Platelet Volume 10.7 9.4 - 12.3 fL [facility] Neutrophils Percent Auto 52.8 45 - 73 % [facility] Imm Gran Pct Auto 0.6(H) 0.0 - 0.4 % [facility] Lymphocytes Percent Auto 33.5 20 - 40 % [facility] Monocytes Percent Auto 8.5 2 - 11 % [facility] Eosinophils Percent Auto 3.8 0 - 4 % [facility] Basophils Percent Auto 0.8 0 - 2 % [facility] NRBC Pct Auto 0.0 0.0 - 0.2 /100WBC [facility] Neutrophils Absolute Auto 2.7 2.0 - 8.3 x10*3/uL [facility] Imm Gran Abs Auto 0.03 0.00 - 0.03 X10*3/uL [facility] Lymphocytes Absolute Auto 1.7 1.2 - 4.9 X10*3/uL [facility] Monocytes Absolute Auto 0.4 0.1 - 1.2 X10*3/uL [facility] Eosinophils Absolute Auto 0.2 0.0 - 0.4 X10*3/uL [facility] Basophils Absolute Auto 0.0 0.0 - 0.2 X10*3/uL [facility] NRBC Abs Auto 0.000 0.0 - 0.012 X10*3/uL [facility] Blood Venous blood specimen / Unknown 08/24/2024 12:16 PM EST 08/24/2024 1:11 PM EST Silvina Douglas UNDERGROUND ELECTRICIAN LAB BLOOD ORDERABLES Final Resul t [facility] [address] [place] [address] [phone] * Iron And Total Iron Binding Capacity (08/24/2024 12:16 PM EST) Iron 89 30 - 160 mcg/dL [facility] Total Iron Binding Capacity 304 228 - 428 mcg/dL [facility] Percent Iron Saturation 29 15 - 50 % [facility] Unsaturated Iron Binding 215 ug/dL [facility] Blood Venous blood specimen / Unknown 08/24/2024 12:16 PM EST 08/24/2024 1:11 PM EST Silvina Graef UNDERGROUND ELECTRICIAN LAB BLOOD ORDERABLES Final Resul t Performing Organization Address City/[facility]/ZIP Co de Phone Number [facility] [address] [place] [address] [phone] * Ferritin (08/24/2024 12:16 PM EST) Ferritin 43 10 - 250 ng/mL [facility] Blood Venous blood specimen / Unknown 08/24/2024 12:16 PM EST 08/24/2024 1:11 PM EST us Carmina Quiroga MD LAB BLOOD ORDERAB LES Final Result Performing Organization Address [facility] Co de Phone Number [facility] [address] [place] [phone] * (ABNORMAL) Lipid Panel, Standard (08/24/2024 12:16 PM EST) Pathologist [facility] Triglycerides 119 <150 mg/dL [facility] Comment:Desirable Triglyceri de: less than 150 mg/dLBorderline High Triglyceride 150-199 mg/dLHigh Triglyceride: 200-499 mg/dLVery High Triglyceride: greater than or equal to 5OO mg/dL Cholesterol 237(H) <200 mg/dL [facility] Comment:Desirable Cholestero l: less than 200 mg/dLBorderline High Cholesterol: 200-239 mg/dLHigh Cholesterol: greater than 239 mg/dL LDL Cholesterol Calculated 167(H) <100 mg/dL [facility] Comment:Desirable LDL: less than 100 mg/dLNear Optimal/Above Optimal LDL: 110- 129 mg/dLBorderline High LDL: 130-159 mg/dLHigh LDL: 160-189 mg/dLVery High LDL: greater than or equal to 190 mg/dL HDL Cholesterol 47 >40 mg/dL [facility] Comment:Desirable HDL: great er than 40 mg/dL Note: This HDL assay may give artificially low results in patients with liver disease. Blood Venous blood specimen / Unknown 08/24/2024 12:16 PM EST 08/24/2024 1:11 PM EST us Carmina Quiroga MD LAB BLOOD ORDERAB LES Final Result Performing Organization Address City/[facility]/ZIP Co de Phone Number [facility] [address] [place] [phone] * (ABNORMAL) Comprehensive Metabolic Panel (08/24/2024 12:16 PM EST) Sodium 141 135 - 145 mmol/L [facility] Potassium 4.5 3.3 - 5.1 mmol/L [facility] Chloride 101 96 - 108 mmol/L [facility] Carbon Dioxide 31(H) 22 - 29 mmol/L [facility] Anion Gap 14 12 - 20 [facility] Urea Nitrogen (BUN) 16 9 - 16 mg/dL [facility] Creatinine, Serum 1.00 0.5 - 1.4 mg/dL [facility] Estimated Glomerular Filt Rate 59 [facility] Comment:Chronic Kidney Disea se: Estimated GFR < 60 mL/min/[id number] Kidney Disease: Estimated GFR < 15 mL/min/1.73m2 Glucose 104 60 - 115 mg/dL [facility] Calcium 8.7 8.4 - 10.2 mg/dL [facility] Bilirubin, Total 0.4 0.0 - 1.0 mg/dL [facility] Aspartate Amino Transferase 21 5 - 31 U/L [facility] Alanine Aminotransferase 14 0 - 31 U/L [facility] Total Protein 8.0 6.5 - 8.0 g/dL [facility] Albumin Level 4.0 3.5 - 5.0 g/dL [facility] Alkaline Phosphatase 60 39 - 117 U/L [facility] Blood Venous blood specimen / Unknown 08/24/2024 12:16 PM EST 08/24/2024 1:11 PM EST us Carmina Quiroga MD LAB BLOOD ORDERAB LES Final Result Performing Organization Address City/[facility]/ZIP Co de Phone Number [facility] [address] [place] [address] [phone] * (ABNORMAL) Urinalysis Complete (08/11/2024 7:18 PM EST) Color Urine Yellow [facility] Appearance Urine Cloudy [facility] PH 7.0 5.0 - 9.0 [facility] Glucose Urine UA Negative Negative mg/dL [facility] Urine Blood Negative Negative [facility] Specific [place] - Urine 1.020 1.005 - 1.025 [facility] Urine Protein 30 (1+)(A) Neg-Trace mg/dL [facility] Urine Ketones Negative Negative mg/dL [facility] Nitrite Urine Negative Negative [facility] Leukocyte Esterase Urine Trace(A) Negative [facility] RBC Urine 0-2 0 - 2 /HPF [facility] Urine WBC 11-20(A) 0 - 5 /HPF [facility] Urine Squamous Epithelial Cell 6-10 0 - 2 /HPF [facility] Urine Bacteria 2+ None Seen [facility] Hyaline Casts, Urine 0-2 0 - 2 /LPF [facility] Urine Urine specimen obtained by clean catch procedure / Unknown 08/11/2024 7:18 PM EST 08/12/2024 11:36 AM EST Maria D Varela NP LAB URINE ORDERABLES Final Resu lt [facility] [address] [place] [address] [phone] * Culture, Urine, Routine (08/11/2024 7:18 PM EST) Urine Urine specimen obtained by clean catch procedure / Unknown 08/11/2024 7:18 PM EST 08/12/2024 11:37 AM EST Comment:UACC Narrative [facility] - 08/13/2024 11:33 AM EST Urine Culture Report Result Urine Culture > 100,000 cfu/ml Urine Culture Mixed bacterial thuy characteristic of Urine Culture urogenital contamination. Specimen Source: Urine clean catch [facility] MICROBIOLOGY - GENERAL ORDE RABLES Final Result Performing Organization Address [facility]/RUST de Phone Number [facility] [address] [place] [phone] * (ABNORMAL) Bacterial Vaginosis (08/11/2024 7:17 PM EST) TRICHOMONAS VAGINALIS DETECTION BY PCR NOT DETECTED Not Detect [facility] BACTERIAL VAGINOSIS DETECTION BY PCR POSITIVE(A) Negative [facility] Comment:The BV organism targ ets [...] DETECTION BY PCR NOT DETECTED Not Detect [facility] Awilda glab krusei PCR NOT DETECTED Not Detect [facility] Swab Vaginal structure / Unknown 08/11/2024 7:17 PM EST 08/12/2024 11:44 AM EST [facility] MICROBIOLOGY - GENERAL ORDE RABLES Final Result Performing Organization Address [facility] Co de Phone Number [facility] [address] [place] [phone] * Hepatitis C Antibody with Reflex to HCV, RNA, Quantitative, Real-Time PCR (11/11/2023 1:05 PM EDT) Hepatitis C Antibody Nonreactive Nonreactive [facility] Comment:Antibodies to HCV no t detected; does not exclude early acuteHCV infection. Blood Venous blood specimen / Unknown 11/11/2023 1:05 PM EDT 11/11/2023 4:02 PM EDT us Carmina Quiroga MD LAB BLOOD ORDERAB LES Final Result Performing Organization Address [facility] Co de Phone Number [facility] [address] [place] [phone] * HIV-1/2 Antigen and Antibodies, Fourth Generation, with Reflexes (11/11/2023 1:05 PM EDT) Pathologist [facility] HIV AB/AG Nonreactive Nonreactive [facility] Comment:HIV-1 p24 Ag and/or HIV-1/HIV-2 Ab not detected.A test result that is nonreactive does not exclude thepossibility of exposure to or infection with HIV-1 and/orHIV-2. Nonreactive results in this assay for individualswith prior exposure to HIV-1 and/or HIV-2 may be due toantigen and antibody levels that are below the limit ofdetection of this assay.The [employer] HIV Ag/Ab Combo assay result andsupplemental assay results should be interpreted inconjunction with the patient's clinical presentation,history and other laboratory results. If the results areinconsistent with clinical evidence, additional testing issuggested to confirm the result. Blood Venous blood specimen / Unknown 11/11/2023 1:05 PM EDT 11/11/2023 4:02 PM EDT us Carmina Quiroga MD LAB BLOOD ORDERAB LES Final Result Performing Organization Address [facility] Co de Phone Number [facility] [address] [place] [phone] * Cologuard?? colon cancer screening (06/26/2023 9:50 PM EST) Pathologist [facility] Cologuard Result Negative Negative 07/05/20 1:05 AM EST [employer] (CLIA #:[id number]) Comment: NEGATIVE TEST RESULT. A negative Cologuard [...] cancer. ??Following a negative Cologuard result, the [place] [employer] and U.S. Multi-Society Task Force screening guidelines recommend a Cologuard re-screening interval of 3 years. References: [place] [employer] Guideline for Colorectal Cancer Screening: https://www.cancer.org/cancer/dpamf-sdvvbd-yofchz/jdhscykvm-bwezohyuc-vwnuuqm/ac s-rec ommendations.html.; John DK, Beronica GALAVIZ, Delonte DanielsonK, Colorectal Cancer Screening: Recommendations for Physicians and Patients from the U.S. Multi-Society Task Force on Colorectal Cancer Screening , Am J Gastroenterology 2017; 112:6627-9221. TEST DESCRIPTION: Composite algorithmic analysis of stool [...] (Brenda Hazel al, N Engl J Med 2014;370(14):8855-0757.) Cologuard may produce a false negative or false positive result (no colorectal cancer or precancerous polyp present at colonoscopy follow up). A negative Cologuard test result does not guarantee the absence of CRC or advanced adenoma (pre-cancer). The current Cologuard screening interval is every 3 years. ([place] [employer] and U.S. Multi-Society Task Force). Cologuard performance data in a 10,000 patient pivotal study using colonoscopy as the reference method can be accessed at the following location: www.[employer]/results. Additional description of the Cologuard test process, warnings and precautions can be found at www.[employer].Ekinops. Stool specimen (specimen) Rectal contents / Unknown 06/26/2023 9:50 PM EST 06/28/2023 4:06 PM EST Rosa Santos [facility] MOLECULAR DIAGNOSTICS ORDERABLES Final Result [employer] (CLIA #:[id number]) [address] [place] [address], * BI Mammogram Screening Tomosynthesis Bilateral (04/12/2023 10:11 AM EDT) Anatomical Region Laterality Modality Breast Bilateral Mammography 04/12/2023 10:1 1 AM EDT Narrative 04/19/2023 9:57 PM EDT ? [facility] [place] ? [address] ?[place] [address] ? Mammography Report ? Signed ? Patient: Joaquim,Lizbeth ?MR#: [id number] ?? 8 ? : 1975 ?Acct:[id number] ? Age/Sex: 48 / F ?ADM Date: 09/23/23 ? Loc: HO.MAMMO ? Attending Dr: Rosa Santos DIRECTOR INFORMATION ? Ordering Physician: Rosa Santos DIRECTOR INFORMATION ?Results: 1N ?? egative ? Date of Service: 04/12/23 ?Follow Up: 1 Year From Orig ?? inal Mammogram ? Procedure(s): MM tomosynthesis screening BI ?? Accession Number(s): [id number] ? cc: Rosa Santos DIRECTOR INFORMATION ? EXAMINATION: ?? MM SCREENING DIGITAL BREAST [...] 2153 ? DD/ 1011 ? TD/TT: ? Process Mechanic: ? Procedure Note Dongeter, Image - 04/19/2023 [facility] [address] [place] [address] Mammography Report Signed Patient: Sade March#: [id number] 8 : 1975Acct:[id number] Age/Sex: 48 / FADM Date: 04/12/23 Loc: LEEANN Attending Dr: Rosa Santos DIRECTOR INFORMATION Ordering Physician: Rosa Santos FNPResults: 1N egative Date of Service: 04/12/23Follow Up: 1 Year From Orig inal Mammogram Procedure(s): MM tomosynthesis screening BI Accession Number(s): [id number] cc: Rosa Santos DIRECTOR INFORMATION EXAMINATION: MM SCREENING DIGITAL BREAST TOMOSYNTHESIS, BILATERAL [...] in OV> 04/19/23 2153 DD/ 1011 TD/TT: Process Mechanic: Rosa Santos DIRECTOR INFORMATION IMG BI PROCEDURES Edited R esult - Final from Last 3 Months or Most Recently Relevant to Health Maintenance Insurance [facility] [address] C3 Care Teams Administrative Fellow Relationship Specialty Start Date End Date Silvina Douglas NP [address] [place] [address] PCP - General Family Medicine 06/22/24 Raymundo Al, JaydeD [address] [place] [address] Pharmacist Internal Medicine 09/02/24
--- OUTSIDE RECORDS SUMMARY | 2024-09-22 13:54 | XMS_ITS | Encounter Summary ---
Author Organization [employer] Address [address] [facility] [address] [place] [address] Care Team Providers Care Break Up Worker Name Role Phone Silvina Douglas NP Primary Care Provider [phone] Encounter Details Date Type Department Care Team ([facility] st Contact Info) Description 08/24/2024 Telephone [facility] [address] [place], [place] [phone] Silvina Douglas NP [address] [place] [address] Social History Tobacco Use Types Packs/Day Years [...] encounter Miscellaneous Notes * Telephone Encounter - Arianna Horta - 08/24/2024 3:26 PM EST Pharmacy [facility] attempted outreach call on 08/24/24 for Medication Therapy Management (MTM) appointment; however, unable to reach patient. LVM for patient to contact Arianna Horta at [phone]. documented in this encounter Plan of Treatment Upcoming Encounters Date Type Department Care Team ([facility] st Contact Info) Description 10/08/2024 11:30 AM EDT Office Visit [facility] [address] [place] [phone] Silvina Douglas, LUIS [address] [place] [address] 10/18/2024 2:00 PM EDT Telemedicine [facility] [address] [place] [phone] Raymundo Al, PharmD [address] [place] [address] documented as of this encounter Visit Diagnoses Not on filedocumented in this encounter Additional Health Concerns Assessment Noted Time PHQ-9 Depression Total Score: 21 025 11:32 AM EST documented as of this encounter Care Teams Break Up Worker Relationship Specialty Start Date End Date Silvina Douglas NP [address] [place] [address] PCP - General Family Medicine 06/22/24 documented as of this encounter
--- OUTSIDE RECORDS SUMMARY | 2024-09-22 13:54 | XMS_ITS | Encounter Summary ---
Author Organization [employer] Address [address] [place] [address] [address] [place] [address] Care Team Providers Care Shingle Catcher Name Role Phone Silvina Douglas NP Primary Care Provider [phone] Reason for Referral * Consultation (Routine) - Authorized Specialty Diagnoses / Procedures Referred By Contac t Referred To Contact Pharmacy Diagnoses Nicotine dependence, uncomplicated, unspecified nicotine product type Noe Hackett MD [address] [place] [address] Phone: tel: fax: Referral ID Status Reason Start Date Expiration Date Visits Requested Visits Authorized [id number] Authorized Consult and Treat 08/27/2024 08/27/2025 6 6 Encounter Details Date Type Department Care Team (Late st Contact Info) Description 08/27/2024 Telephone [facility] [address] [place], [place] [phone] Anna Valdivia, JaydeD [address] [place] [address] Social History Tobacco Use Types Packs/Day Years [...] Description 10/08/2024 11:30 AM EDT Office Visit [facility] [address] [place] [address] Silvina Douglas NP [address] [place] [address] 10/18/2024 2:00 PM EDT Telemedicine [facility] [address] [place] [address] Raymundo Al, PharmD [address] [place] [address] Scheduled Referrals Name Type Priority Associated Diagnoses Orde r Schedule Referral to Pharmacy CDTM Outpatient Referral Routine Nicotine dependence, uncomplicated, unspecified nicotine product type Ordered: 08/27/2024 documented as of this encounter Visit Diagnoses Diagnosis Nicotine dependence, uncomplicated, unspecified nicotine product type- Primary documented in this encounter Additional Health Concerns Assessment Noted Time PHQ-9 Depression Total Score: 21 025 11:32 AM EST documented as of this encounter Care Teams Shingle Catcher Relationship Specialty Start Date End Date Silvina Douglas NP [address] [place] [address] PCP - General Family Medicine 06/22/24 documented as of this encounter
--- OUTSIDE RECORDS SUMMARY | 2024-09-22 13:54 | XMS_ITS | Encounter Summary ---
Author Organization [employer] Address [address] [facility] 7t [place] [address] Care Team Providers Care Library Services Coordinator Name Role Phone Silvina Douglas NP Primary Care Provider [phone] Raymundo Al PharmD Unavailable [phone] Reason for Visit * Reason Comments Blood in Urine Encounter Details Date Type Department Care Team (Late st Contact Info) Description 09/21/2024 5:40 PM EST Office Visit [facility] [address] [place] [address] [phone] Garima Steinberg MD [address] [place], [place] [phone] Subacute vaginitis (Primary Dx); COPD with acute exacerbation (CMS/HCC); Essential hypertension; Dysuria Social History Tobacco Use Types Packs/Day Years [...] Score 21 08/24/2024 Patient Health Questionnaire-9 Score 08/24/2024 Last PHQ-9: Questionnaire Data Not on [...] Mass Index 48.76 09/21/2024 5:14 PM EST documented in this encounter Progress Notes * Garima Steinberg MD - 09/21/2024 5:40 PM EST SUBJECTIVE: Lizbeth Joaquim is a 49 y.o. year old female who presents for Walk In Center/UTI sxs . Denies recent illness, injury, or hospitalization. Acute Concerns: Patient patient complains all episodes of lower abdominal pain, dysuria, vaginal irritation and vaginal discharge on and off for the past week. She also has gross hematuria and increased urinary frequency. She had similar symptoms approximately a month ago and was apparently treated with Flagyl x 7days but she could not complete the medication due to nausea and abdominal pain. She does not have any fever at this time, chills, back pain. She complains of an intermittent shortness of breath and pleuritic chest pain for approximately 6 to 8 months, she has been using albuterol 3-4 times per week and tells me that she has not been usingBreo. She has not had any fever, change in sputum production or pleuritic chest pain. Last time shehad a albuterol inhaler was this morning. She has not been taking BP medications regularly, she takes them approximately 2 or 3 times per week and she did not take blood pressure medications today. She denies headache, chest pain and has been having shortness of breath that is usually relieved with albuterol. Social History Social History Narrative Not on file Patient Active Problem List Diagnosis Abnormal maternal [...] HLD (hyperlipidemia) Prolonged Q-T interval on ECG SOB (shortness of breath) Hypertension Morbid obesity (CMS/HCC) Tinea pedis of both feet Dietary counseling Exercise counseling Vitamin D deficiency COPD with acute exacerbation (CMS/HCC) Subacute vaginitis Family History Problem Relation Name Age of Onset Other (depression, Graves's dx) Mother Other (DM,HTN) Father Breast cancer Maternal Grandmother Review of Systems Constitutional: Negative for chills, fatigue and fever. HENT: Negative for congestion, ear pain, nosebleeds, rhinorrhea, sinus pressure, sore throat and trouble swallowing. Eyes: Negative for pain and discharge. Respiratory: Positive for shortness of breath. Negative for cough and chest tightness. Cardiovascular: Negative for chest pain, palpitations and leg swelling. Gastrointestinal: Negative for abdominal pain, blood in stool, constipation, diarrhea and nausea. Endocrine: Negative for polydipsia and polyuria. Genitourinary: Positive for dysuria, frequency, hematuria, pelvic pain and vaginal discharge. Negative for genital sores. Musculoskeletal: Negative for back pain and neck pain. Skin: Negative for rash. Allergic/Immunologic: Negative for environmental allergies. Neurological: Negative for dizziness, seizures, weakness, light-headedness and headaches. Hematological: Negative for adenopathy. Psychiatric/Behavioral: Negative for agitation, behavioral problems, self-injury and suicidal ideas. OBJECTIVE: Vitals: 09/21/24 1714 BP: (!) 165/110 Pulse: 88 Resp: 24 Temp: 98.6 ??F (37 ??C) SpO2: 96% Physical Exam HENT: Right Ear: Tympanic membrane and ear canal normal. Left Ear: Tympanic membrane and ear canal normal. Mouth/Throat: Mouth: Mucous membranes are moist. Pharynx: No oropharyngeal exudate or posterior oropharyngeal erythema. Eyes: Pupils: Pupils are equal, round, and reactive to light. Cardiovascular: Rate and Rhythm: Regular rhythm. Pulses: Normal pulses. Heart sounds: Normal heart sounds. No murmur heard. Pulmonary: Breath sounds: Examination of the right-upper field reveals wheezing. Examination of the left-upperfield reveals wheezing. Examination of the right- middle field reveals wheezing. Examination of the left-middle field reveals wheezing. Examination of the right-lower field reveals wheezing. Examination of the left-lower field reveals wheezing. Wheezing present. Abdominal: General: Bowel sounds are normal. Palpations: Abdomen is soft. Tenderness: There is abdominal tenderness in the suprapubic area. Musculoskeletal: General: Normal range of motion. Cervical back: Neck supple. Skin: General: Skin is warm. Neurological: General: No focal deficit present. Mental Status: She is alert and oriented to person, place, and time. Psychiatric: Mood and Affect: Mood normal. Behavior: Behavior normal. Problem List Items Addressed This Visit Subacute vaginitis - Primary Prescription for metronidazole intravaginal gel x 1 [...] prescribed etc (all medications are sent to [facility] pharmacy on [address] at patient's request as her regular pharmacy isclosed at this time, I called pharmacy and confirmed that they received the prescription and neededinsurance information). Will follow results of vaginal swab Relevant Orders Bacterial Vaginosis Panel Chlamydia/N. Gonorrhoeae RNA, TMA, Urogenitial COPD with acute exacerbation ([facility]) DuoNeb nebulizer done today. She is to continue albuterol every 6 hours at home for the next 5 days Restart Breo daily and follow-up if symptoms do not improve within 1 week. Advised to quit smoking Relevant Medications ipratropium-albuterol (Duo-Neb) 0.5-2.5 mg/3 mL nebulizer solution 3 mg (Completed) Essential hypertension Uncontrolled today probably related to both noncompliance and acute asthma exacerbation. Advised to treat COPD exacerbation as above. Advised to take amlodipine daily as opposed to as needed. Follow-up BP with RN in 3 to 4 weeks and follow-up with PCP as scheduled Other Visit Diagnoses Dysuria Relevant Orders POCT Urinalysis (Completed) Bacterial Vaginosis Panel Chlamydia/N. Gonorrhoeae RNA, TMA, Urogenitial Follow Up: Current Outpatient Medications on File Prior to Visit Medication Sig Dispense Refill albuterol 108 (90 Base) MCG/ACT inhaler Inhale 2 puffs every 4 (four) hours if needed for shortnessof breath or wheezing. 18 g 3 amLODIPine (Norvasc) 10 MG tablet Take 1 tablet (10 mg) by mouth Once per day. TAKE 1 TABLET(10 MG)BY MOUTH IN THE MORNING 90 tablet 0 Ascorbic Acid (vitamin C) 250 MG tablet Take 1 tablet by mouth. Twice a week atorvastatin (Lipitor) 10 MG tablet Take 1 tablet (10 mg) by mouth Once per day. 90 tablet 0 benzoyl peroxide (PanOxyl Foaming Wash) 10 % external wash Apply topically 2 times daily. 227 g 1 Breo Ellipta 200-25 MCG/ACT aerosol powder Take 1 puff by mouth Once per day. buPROPion XL (Wellbutrin XL) 150 MG 24 hr tablet Take 1 tablet by mouth. ALONG WITH 300MG FOR A TOTAL OF 450MG buPROPion XL (Wellbutrin XL) 300 MG 24 hr tablet Take 300 mg by mouth Once per day. Do not crush, chew, or split. 450 mg a day cholecalciferol (Vitamin D-3) 50 MCG (2000 UT) capsule Take 1 capsule (50 mcg) by mouth Once per day. 90 capsule 1 cloNIDine (Catapres) 0.1 MG tablet Take 0.1 mg by mouth if needed in the morning and at bedtime. ferrous gluconate (Fergon) 324 (38 Fe) MG tablet Take 1 tablet by mouth. Twice a week Fluocinolone Acetonide Scalp ([place]-Smoothe/FS Scalp) 0.01 % oil Apply 2 times weekly at night 118.28 mL 0 hydrOXYzine pamoate (Vistaril) 25 MG capsule TAKE 1 TO 2 CAPSULES BY MOUTH THREE TIMES DAILY NEEDED FOR ANXIETY OR SLEEP ibuprofen 800 MG tablet Take 1 tablet by mouth every 8 (eight) hours if needed. Incruse Ellipta 62.5 MCG/ACT aerosol powder INHALE 1 PUFF BY MOUTH EVERY 24 HOURS DOSES SHOULD BE TAKEN AT LEAST 24 HOURS APART ketoconazole (NIZOral) 2 % cream Apply topically Once per day. 50 g 0 ketoconazole (Nizoral) 2 % shampoo Apply topically 2 (two) times a week. 120 mL 1 lidocaine (Lidoderm) 5 % patch Apply 1 patch topically Once per day. Remove & discard patch within 12 hours or as directed by MD. 15 patch 0 Multiple Vitamins-Minerals (CENTRUM ADULT PO) Take 1 tablet by mouth Once per day. olmesartan-hydroCHLOROthiazide (Benicar HCT) 20-12.5 MG tablet Take 1 tablet by mouth Once per day.90 tablet 0 Tirzepatide-Weight Management (Zepbound) 2.5 MG/0.5ML solution auto-injector Inject 0.5 mL (2.5 mg)under the skin 1 (one) time per week for 28 days. 2 mL 0 Varenicline Tartrate, Starter, (Chantix Starting Month Bry) 0.5 MG X 11 & 1 MG X 42 tablet therapy pack Take 0.5 mg by mouth Once per day for 3 days, THEN 0.5 mg 2 times daily for 4 days, THEN 1 mg 2 times daily for 21 days. 53 each 0 Vyvanse 60 MG capsule Take 1 capsule by mouth Once per day. [DISCONTINUED] nicotine (Nicoderm CQ) 14 MG/24HR patch Place 1 patch on the skin 1 (one) time each day at the same time. 42 patch 0 [DISCONTINUED] nicotine polacrilex (Nicotine Mini) 4 MG lozenge Dissolve 1 lozenge by mouth every 1-2 hours as needed for cravings 72 lozenge 0 No current facility-administered medications on file prior to visit. documented in this encounter Miscellaneous Notes * Assessment & Plan Note - Garima Steinberg MD - 09/21/2024 7:13 PM EST Associated Problem(s): Subacute vaginitis Prescription for metronidazole intravaginal gel x 1 [...] prescribed etc (all medications are sent to [facility] pharmacy [address] at patient's request as her regular pharmacy is closed at this time, I called pharmacy and confirmed that they received the prescription and needed insurance information). Will follow results of vaginal swab * Assessment & Plan Note - Garima Steinberg MD - 09/21/2024 7:10 PM EST Associated Problem(s): Essential hypertension Uncontrolled today probably related to both noncompliance and acute asthma exacerbation. Advised to treat COPD exacerbation as above. Advised to take amlodipine daily as opposed to as needed. Follow-up BP with RN in 3 to 4 weeks and follow-up with PCP as scheduled * Assessment & Plan Note - Garima Steinberg MD - 09/21/2024 7:08 PM EST Associated Problem(s): COPD with acute exacerbation ([facility]) DuoNeb nebulizer done today. She is to continue albuterol every 6 hours at home for the next 5 days Restart Breo daily and follow-up if symptoms do not improve within 1 week. Advised to quit smoking documented in this encounter Plan of Treatment Upcoming Encounters Date Type Department Care Team (Late st Contact Info) Description 10/08/2024 11:30 AM EDT Office Visit [facility] [address] [place] [phone] Silvina Douglas NP 230 [place] [address] 10/18/2024 2:00 PM EDT Telemedicine [facility] [address] [place] [address] Raymundo Al, JaydeD [address] [place] [address] Scheduled Orders Name Type Priority Associated Diagnoses Orde r Schedule Bacterial Vaginosis Panel Microbiology Routine Dysuria Subacute vaginitis Ordered: 09/21/2024 Chlamydia/N. Gonorrhoeae RNA, TMA, Urogenitial Microbiology Routine Dysuria Subacute vaginitis Ordered: 09/21/2024 documented as of this encounter Procedures Procedure Name Priority Date/Time Associated Diagnosis Comments POCT URINALYSIS DIPSTICK Routine 09/21/2024 5:27 PM EST Dysuria documented in this encounter Results * (ABNORMAL) POCT Urinalysis (09/21/2024 5:27 PM EST) Color, UA Yellow Clarity, UA Clear Glucose, [...] CARE TEST ENTER /EDIT ORDERABLES Final Result documented in this encounter Visit Diagnoses Diagnosis Subacute vaginitis- Primary COPD with acute exacerbation ([facility]/HCC) Essential hypertension Unspecified essential hypertension Dysuria documented in this encounter Administered Medications Inactive Administered Medications - up to 3 most recent administrations Medication Order MAR Action Action Date Dose Rate Site ipratropium-albuterol (Duo-Neb) 0.5-2.5 mg/3 mL nebulizer solution 3 mg 3 mg, Nebulization, Once, On Fri09/21/24 at 1800, For 1 doseIndications:COPD with acute exacerbation (CMS/HCC) Given 09/21/2024 6:00 PM EST 3 mg documented in this encounter Additional Health Concerns Assessment Noted Time PHQ-9 Depression Total Score: 21 025 11:32 AM EST documented as of this encounter Care Teams Library Services Coordinator Relationship Specialty Start Date End Date Silvina Douglas NP [address] [place] [address] PCP - General Family Medicine 06/22/24 Raymundo Al, Pedro [address] [place] [address] Pharmacist Internal Medicine 09/02/24 documented as of this encounter
--- OUTSIDE RECORDS SUMMARY | 2024-09-22 13:54 | XMS_ITS | Encounter Summary ---
Author Organization [employer] Address [address] [facility] 7t [place] [address] Care Team Providers Care Civil Design Specialist Name Role Phone Silvina Douglas NP Primary Care Provider [phone] Encounter Details Date Type Department Care Team (Late st Contact Info) Description 08/30/2024 3:30 PM EST Telemedicine [facility] [address] [place], [place] [phone] Raymundo Al, PharmD 230 [place], [place] [phone] Nicotine dependence, uncomplicated, unspecified nicotine product type [...] the past 12 months, has t he Shopliment, gas, oil or water [employer] threatened to shut off services in your [...] Progress Notes * Raymundo Al PharmD - 08/30/2024 3:30 PM EST Pharmacy Consult Visit Type: CDTM Pharmacist: Raymundo Al, PharmYadi Martinezcarolynn March is a 49 y.o. year old patient here for new patient visit completed over the phone. Subjective History: General / Intake (updated 08/30/2024) Allergies: is allergic to sulfa antibiotics, sulfamethoxazole-trimethoprim, clindamycin, and metronidazole. Read/Write: Yes, in Slovak Recent Hospitalizations: No Social History as reported by patient: Tobacco: See Smoking Cessation Alcohol: Current (once a month, trigger for cigarettes) Caffeine: Current, no coffee, soda daily Illicit drugs: Current Marijuana (couple of times a month) Diet: Historically tended to smoke after meals Exercise: Denies Adherence / patient self-management Uses medboxes from [facility] pharmacy Scheduled to brain picker first medbox on Friday09/03/2024. Patient admits non adherence to medications, excited to start Medboxes. OTC medication, vitamin, supplement use: Centrum for [...] out of 10. Patient quit date: 08/16/2024 Patient requests: nicotine and chantix in combination. Objective History: Treatment history/considerations: PMH: Tobacco Dependence, [...] HepA Patient requested HepA vaccine, scheduled 09/03/2024 Patient declined Covid-19 vaccine 08/30/2024 Preferred Pharmacy: [facility] - [address] [phone] Assessment/Plan: Smoking Cessation (Stage: Action) Pharmacotherapy: Nicotine 2 mg gum four times daily as needed for cravings Goals of therapy per the [facility] Treating Tobacco Use and Dependence Clinical Practice Guideline: Achieve cessation via pharmacologic & non-pharmacologic intervention Plan: Patient very motivated to quit smoking. Patient agrees to the following combination NRT: Nicotine 14 mg patch, apply 1 patch daily as directed x6 wks (starting dose) Nicotine 4 mg lozenge use 1 as directed every 1-2 hours PRN cravings (combo therapy) Pharmacist declined to start Chantix at this time. NRT with Chantix has been used in combination safely, but data on efficacy is conflicting. Given PMH significant for BH disorders will follow closely on combination NRT. Patient to follow up in CD in 2 weeks for ongoing support. Education: Use of [...] Description 10/08/2024 11:30 AM EDT Office Visit [facility] [address] [place] [phone] Silvina Douglas NP [address] [place] [address] 10/18/2024 2:00 PM EDT Telemedicine [facility] [address] [place] [phone] Raymundo Al, Pedro [address] [place] [phone] documented as of this encounter Visit Diagnoses Diagnosis Nicotine dependence, uncomplicated, unspecified nicotine product type- Primary documented in this encounter Additional Health Concerns Assessment Noted Time PHQ-9 Depression Total Score: 21 025 11:32 AM EST documented as of this encounter Care Teams Civil Design Specialist Relationship Specialty Start Date End Date Silvina Douglas NP [address] [place] [address] PCP - General Family Medicine 06/22/24 documented as of this encounter
--- OUTSIDE RECORDS SUMMARY | 2024-09-22 13:54 | XMS_ITS | Encounter Summary ---
Author Organization [email or web address] Address [address] [place] [address] 7 [place] [address] Care Team Providers Care Supervisor Costuming Name Role Phone Silvina Douglas NP Primary Care Provider [phone] Raymundo Al PharmD Unavailable [phone] Reason for Visit * Reason Comments Med Refill Encounter Details Date Type Department Care Team ([facility] st Contact Info) Description 06/26/2024 Refill [facility] [address] [place], [place] [phone] Carmina Colorado MD [address] [place], [place] [phone] Social History Tobacco Use Types Packs/Day Years [...] Office Visit [facility] [address] [place] [phone] Silvina Douglas NP [address] [place] [address] 10/18/2024 2:00 PM EDT Telemedicine [facility] [address] [place] [phone] Raymundo Al, PharmD [address] [place] [phone] documented as of this encounter Visit Diagnoses Not on filedocumented in this encounter Additional Health Concerns Assessment Noted Time PHQ-9 Depression Total Score: 22 024 2:46 PM EDT documented as of this encounter Care Teams Supervisor Costuming Relationship Specialty Start Date End Date Silvina Douglas NP [address] [place] [address] PCP - General Family Medicine 06/22/24 Raymundo lA, PharmD [address] [place] [address] Pharmacist Internal Medicine 09/02/24 documented as of this encounter
--- OUTSIDE RECORDS SUMMARY | 2024-09-22 13:55 | XMS_ITS | Encounter Summary ---
Author Organization [employer] Address [address] [facility] 7t [place] [address] Care Team Providers Care Team Cdl Driver Name Role Phone Silvina Douglas NP Primary Care Provider [phone] Encounter Details Date Type Department Care Team [...] 10/08/2024 11:30 AM EDT Office Visit [facility] [address] [place] [phone] Silvina Douglas NP [address] [place] [address] 10/18/2024 2:00 PM EDT Telemedicine [facility] [address] [place] [phone] Raymundo Al, PharmD [address] [place] [phone] documented as of this encounter Visit Diagnoses Not on filedocumented in this encounter Additional Health Concerns Assessment Noted Time PHQ-9 Depression Total Score: 21 025 11:32 AM EST documented as of this encounter Care Teams Team Cdl Driver Relationship Specialty Start Date End Date Silvina Douglas NP [address] [place] [address] PCP - General Family Medicine 06/22/24 documented as of this encounter
--- OUTSIDE RECORDS SUMMARY | 2024-09-22 13:55 | XMS_ITS | Encounter Summary ---
Author Organization [employer] Address [address] [place] [address] Care Team Providers Care Cabin Equipment Supervisor Name Role Phone Silvina Douglas NP Primary Care Provider [phone] Reason for Referral * Consultation (Routine) - Closed Specialty Diagnoses / Procedures Referred By Contac t Referred To Contact Bariatrics Diagnoses Morbid obesity (CMS/HCC) Silvina Douglas NP [address] [place] [address] Phone: tel: fax: Diaz Chavez MD [address] [place] [address] Phone: tel: fax: Referral ID Status Reason Start Date Expiration Date V isits Requested Visits Authorized [id number] Closed Specialty Services Required 08/24/2024 08/24/2025 12 12 * Consultation (Routine) - Authorized Specialty Diagnoses / Procedures Referred By Contac t Referred To Contact Pharmacy Diagnoses Hypertension, unspecified type Silvina Douglas NP [address] [place] [address] Phone: tel: fax: Referral ID Status Reason Start Date Expiration Date Visits Requested Visits Authorized [id number] Authorized Continuity of Care 08/24/2024 08/24/2025 6 6 Scheduling Instructions Med box initiating Encounter Details Date Type Department Care Team (Late st Contact Info) Description 08/24/2024 11:00 AM EST Office Visit [facility] [address] [place] [address] Silvina Douglas NP [address] [place] [address] SOB (shortness of breath) (Primary Dx); Hypertension, unspecified type; Obstructive sleep apnea; Morbid obesity (CMS/HCC); Tinea pedis of both feet; Dietary counseling; Exercise counseling; Chronic obstructive pulmonary disease, unspecified COPD type (CMS/HCC); 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 female who presents to the office for follow up visit - chronic conditions. Htn- took bp meds this morning, has not been measuring at home but does have bp cuff- does Thinks bp meds needs to be adjusted due to elevated bps in multiple office visits Does have sensation of chest pressure with exertion though it does feel sob related to breathing No chest pressure, lightheadedness Interim history: Pharmacy Recommendations for provider: Please consider assessing if the patient is SMBP, and consider providing a prescription for a bloodpressure cuff if needed Please consider reviewing which inhaler(s) the patient is using, as there are three maintenance inhalers on their EPIC profile with fill history. Please consider providing a referral to [place] for medbox start if the patient is interested, as they are taking multiple oral medications Please consider reminding the patient to complete pending labs Current concerns: Weight gain, difficulty losing weight, sibling tolerated glp-1 , interested in this option, no hx of thyroid ca, no hx of pancreatitis, does have sleep apnea, would also like to see [facility] weight management program Recently treated for foot fungus, now requesting refill of topical therapies Hx of anemia wondering if ongoing Mh- in care with prescriber, and therapist Patient Health Questionnaire-9 Score: 21 (08/24/2024 11:32 AM) Patient Health Questionnaire-2 Score: 6 (08/24/2024 11:32 AM) Thoughts that you would be better off or hurting yourself in some way: Not at all (08/24/2024 11:32 AM) Patient Active Problem List Diagnosis Abnormal maternal [...] of both feet Dietary counseling Exercise counseling Review of Systems Constitutional: Negative for activity change and appetite change. HENT: Negative for congestion and dental problem. Eyes: Negative for discharge. Respiratory: Positive for chest tightness, shortness of breath and wheezing. Negative for apnea. Cardiovascular: Negative for chest pain and leg swelling. Gastrointestinal: Negative for abdominal distention. Endocrine: Negative for cold intolerance. Genitourinary: Negative for difficulty urinating. Musculoskeletal: Negative for arthralgias. Skin: Negative for color change. Hematological: Negative for adenopathy. Objective Visit Vitals BP (!) 165/105 (BP Location: Right arm, Patient Position: Sitting, BP Cuff Size: Adult) Comment: 2 try 161/111 Comment (BP Location): four arm Pulse 76 Temp 98.8 ??F (37.1 ??C) (Oral) Resp 18 Ht 5' 3 (1.6 m) Wt 272 lb 6.4 oz (124 kg) SpO2 98% BMI 48.25 kg/m?? Smoking Status Some Days BSA 2.35 m?? Thyroid FNA done yesterday 02/16/2024: Benign (category 2) -has already Endocrinology Appt on 03/15/24 @ 9:45AM Physical Exam Vitals reviewed. Constitutional: Appearance: She is obese. HENT: Head: Normocephalic and atraumatic. Nose: Nose normal. Eyes: Conjunctiva/sclera: Conjunctivae normal. Cardiovascular: Rate and Rhythm: Normal rate and regular rhythm. Heart sounds: Normal heart sounds. Pulmonary: Effort: Pulmonary effort is normal. Breath sounds: Normal breath sounds. Abdominal: General: Abdomen is flat. Musculoskeletal: Cervical back: Normal range of motion and neck supple. No tenderness. Neurological: General: No focal deficit present. Mental Status: She is alert. Psychiatric: Mood and Affect: Mood normal. 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-4-pectfqmws dehydrogenase; Current Assessment & Plan Labs as ordered below Obstructive sleep apnea Current Assessment & Plan Upcoming visit with sleep medicine Relevant Medications Tirzepatide-Weight Management (Zepbound) 2.5 MG/0.5ML solution auto-injector Chronic obstructive pulmonary disease ([facility]) Overview Reports recent dx of COPD by pulmonology Treating w/ Symbicort and VILMA PRN for COPD management F/u with Pulmonology SOB (shortness of breath) - Primary Current Assessment & Plan Increased dyspnea, encouraged ongoing exercise, wt management smoking cessation bp control Relevant Orders CBC auto differential (Completed) Iron And Total Iron Binding Capacity (Completed) Hypertension Current Assessment & Plan Above goal, meds adjusted below Measure home bp Return to clinic in 4-6 weeks sooner prn Relevant Medications Tirzepatide-Weight Management (Zepbound) 2.5 MG/0.5ML solution auto-injector Other Relevant Orders Referral to Pharmacy MTM Morbid obesity ([facility]) Current Assessment & Plan With sleep apnea, trial glp-1 Pt would also like referral to [facility] wt loss Relevant Medications Tirzepatide-Weight Management (Zepbound) 2.5 MG/0.5ML solution auto-injector Other Relevant Orders Referral to Bariatric Surgery Tinea pedis of both feet Current Assessment & Plan Ketoconazole topical rx Dietary counseling Current Assessment & Plan Encouraged minimizing processed foods and increasing whole foods particularly vegetables Exercise counseling Current Assessment & Plan Encouraged daily movement, working up to 30 minutes daily Current Outpatient Medications Medication Sig Dispense Refill albuterol 108 (90 Base) MCG/ACT inhaler Inhale 2 puffs every 4 (four) hours if needed for shortnessof breath or wheezing. 18 g 3 amLODIPine (Norvasc) 10 MG tablet Take 1 tablet (10 mg) by mouth Once per day. TAKE 1 TABLET(10 MG)BY MOUTH IN THE MORNING 90 tablet 0 atorvastatin (Lipitor) 10 MG tablet Take 1 [...] needed in the morning and at bedtime. Fluocinolone Acetonide Scalp ([place]-Smoothe/FS Scalp) 0.01 % oil Apply 2 times [...] as directed by MD. 15 patch 0 nicotine (Nicoderm CQ) 14 MG/24HR patch Place 1 patch on the skin 1 (one) time each day at the sametime. 30 patch 0 nicotine polacrilex (Nicorette) 2 MG gum Chew 1 each (2 mg) if needed in the morning, at noon, in the evening, and at bedtime for smoking cessation. 100 each 0 olmesartan-hydroCHLOROthiazide (Benicar HCT) 20-12.5 MG tablet Take 1 tablet by mouth Once per day.90 tablet 0 Symbicort 160-4.5 MCG/ACT inhaler Inhale 2 puffs 2 times daily. Tirzepatide-Weight Management (Zepbound) 2.5 MG/0.5ML solution auto-injector Inject 0.5 mL (2.5 mg)under the skin 1 (one) time per week for 28 days. 2 mL 0 Vyvanse 60 MG capsule Take 1 capsule by mouth Once per day. No current facility-administered medications for this visit. documented in this encounter Miscellaneous Notes * Assessment & Plan Note - Silvina Douglas NP - 08/24/2024 6:43 PM ESTAssociated Problem(s): Dietary counseling Encouraged minimizing processed foods and increasing whole foods particularly vegetables * Assessment & Plan Note - Silvina Douglas NP - 08/24/2024 6:43 PM ESTAssociated Problem(s): Exercise counseling Encouraged daily movement, working up to 30 minutes daily * Assessment & Plan Note - Silvina Douglas NP - 08/24/2024 6:40 PM ESTAssociated Problem(s): SOB (shortness of breath) Increased dyspnea, encouraged ongoing exercise, wt management smoking cessation bp control * Assessment & Plan Note - Silvina Douglas NP - 08/24/2024 6:39 PM ESTAssociated Problem(s): Obstructive sleep apnea Upcoming visit with sleep medicine * Assessment & Plan Note - Silvina Douglas NP - 08/24/2024 6:39 PM ESTAssociated Problem(s): Hypertension Above goal, meds adjusted below Measure home bp Return to clinic in 4-6 weeks sooner prn * Assessment & Plan Note - Silvina Douglas NP - 08/24/2024 6:39 PM ESTAssociated Problem(s): Tinea pedis of both feet Ketoconazole topical rx * Assessment & Plan Note - Silvina Douglas NP - 08/24/2024 6:39 PM ESTAssociated Problem(s): 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) Labs as ordered below * Assessment & Plan Note - Silvina Douglas NP - 08/24/2024 6:35 PM ESTAssociated Problem(s): Morbid obesity (CMS/HCC) With sleep apnea, trial glp-1 Pt would also like referral to [facility] rianna documented in this encounter Plan of Treatment Upcoming Encounters Date Type Department Care Team (Late st Contact Info) Description 10/08/2024 11:30 AM EDT Office Visit [facility] [address] [place] [address] Silvina Douglas NP [address] [place] [address] 10/18/2024 2:00 PM EDT Telemedicine [facility] [address] [place] [address] Raymundo Al, PharmD [address] [place] [address] Scheduled Referrals Name Type Priority Associated Diagnoses Orde r Schedule Referral to Pharmacy MTM Outpatient Referral Routine Hypertension, unspecified type Ordered: 08/24/2024 Referral to Bariatric Surgery Outpatient Referral Routine Morbid obesity (CMS/HCC) Expected: 08/24/2024 (Approximate), Expires: 08/24/2025 documented as of this encounter Procedures Procedure Name Priority Date/Time Associated Diagnosis Comments CBC WITH AUTO DIFFERENTIAL Routine 08/24/2024 12:16 PM EST SOB (shortness of breath) IRON AND TOTAL IRON BINDING CAPACITY Routine 08/24/2024 12:16 PM EST SOB (shortness of breath) documented in this encounter Results * Iron And Total Iron Binding Capacity (08/24/2024 12:16 PM EST) Pathologist [facility] Iron 89 30 - 160 mcg/dL [facility] Total Iron Binding Capacity 304 228 - 428 mcg/dL [facility] Percent Iron Saturation 29 15 - 50 % [facility] Unsaturated Iron Binding 215 ug/dL [facility] Blood Venous blood specimen / Unknown 08/24/2024 12:16 PM EST 08/24/2024 1:11 PM EST us Silvina Douglas ADOPTION COUNSELOR LAB BLOOD ORDERABLES Final Resul t [facility] [address] [place] [address] [phone] * (ABNORMAL) CBC auto differential (08/24/2024 12:16 PM EST) White Blood Count 5.1 4.8 - 10.8 X10*3/uL [facility] Red Blood Count 5.33 4.20 - 5.50 X10*6/uL [facility] Hemoglobin 13.7 12.0 - 16.0 g/dl [facility] Hematocrit 44.7 37.0 - 47.0 % [facility] Mean Corpuscular Volume 83.9 80.0 - 98.0 fL [facility] Mean Corpuscular Hemoglobin 25.7(L) 27.0 - 33.0 pg [facility] Mean Corpuscular HGB Conc 30.6(L) 31.0 - 35.0 g/dl [facility] Red Cell Distribution Width 13.4 11.0 - 16.0 % [facility] Platelet Count 250 160 - 400 X10*3/uL [facility] Mean Platelet Volume 10.7 9.4 - 12.3 fL [facility] Neutrophils Percent Auto 52.8 45 - 73 % [facility] Imm Gran Pct Auto 0.6(H) 0.0 - 0.4 % [facility] Lymphocytes Percent Auto 33.5 20 - 40 % [facility] Monocytes Percent Auto 8.5 2 - 11 % [facility] Eosinophils Percent Auto 3.8 0 - 4 % [facility] Basophils Percent Auto 0.8 0 - 2 % [facility] NRBC Pct Auto 0.0 0.0 - 0.2 /100WBC [facility] Neutrophils Absolute Auto 2.7 2.0 - 8.3 x10*3/uL [facility] Imm Gran Abs Auto 0.03 0.00 - 0.03 X10*3/uL [facility] Lymphocytes Absolute Auto 1.7 1.2 - 4.9 X10*3/uL [facility] Monocytes Absolute Auto 0.4 0.1 - 1.2 X10*3/uL [facility] Eosinophils Absolute Auto 0.2 0.0 - 0.4 X10*3/uL [facility] Basophils Absolute Auto 0.0 0.0 - 0.2 X10*3/uL [facility] NRBC Abs Auto 0.000 0.0 - 0.012 X10*3/uL [facility] Blood Venous blood specimen / Unknown 08/24/2024 12:16 PM EST 08/24/2024 1:11 PM EST us Silvina Douglas NP LAB BLOOD ORDERABLES Final Resul t [facility] [address] [place] [address] [phone] documented in this encounter Visit Diagnoses Diagnosis SOB (shortness of breath)- Primary Shortness of breath Hypertension, unspecified type Obstructive sleep apnea Obstructive sleep apnea (adult) (pediatric) Morbid obesity (CMS/HCC) Morbid obesity Tinea pedis of both feet Dietary counseling Dietary surveillance and counseling Exercise counseling Chronic obstructive pulmonary disease, unspecified COPD type (CMS/HCC) 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
--- OUTSIDE RECORDS SUMMARY | 2024-09-22 13:55 | XMS_ITS | Clinical Summary ---
Author Organization [facility] Address [address] [place] [address] Care Team Providers Care Web Application Tester Name Role Phone Silvina Douglas WATER T[employer]ANT SUPERVISOR Primary Care Provider [phone] Allergies Active Allergy Reactions Criticality Noted Date Comments Clindamycin Rash Low 01/26/2019 Patient reports rash Metronidazole Rash Low 07/10/2016 metronidazole pt reports itchy rash after taking-- metronidazole pt reports itchy rash with oral pill. States she tolerated vaginal cream well. 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 Max Daily Amount: 60 mg 08/04/2024 Active cholecalciferol (VITAMIN D-3) 50 mcg (2,000 unit) capsule Take 50 mcg by mouth daily. 12/22/2023 12/22/19 25 Active atorvastatin (LIPITOR) 10 mg tablet Take 1 tablet (10 mg total) by mouth daily. 06/28/2024 06/28/20 25 Active amLODIPine (NORVASC) 10 mg tablet Take 1 tablet (10 mg total) by mouth daily. 05/13/2023 Active tirzepatide, weight loss, (Zepbound) 2.5 mg/0.5 mL injection Inject 0.5 mL (2.5 mg total) under the skin. 08/24/2024 09/22/19 Active Problems Problem Noted Date Diagnosed Date HTN (hypertension) 08/27/2024 Obstructive sleep apnea 08/27/2024 COPD (chronic obstructive pulmonary disease) 01/2025 Hyperlipidemia 08/27/2024 Prolonged Q-T interval on ECG 08/27/2024 Morbidly obese 08/27/2024 Nontoxic single thyroid nodule 12/09/2013 Vitamin D deficiency 05/28/2012 Tobacco use disorder 11/15/2009 Social History Tobacco Use Types Packs/Day Years Used Date Smoking Tobacco: Never Assessed Comments Unknown Sex and Gender Information Value Date Recorded Sex Assigned at Not on file Legal Sex Female 2:59 PM EST Gender Identity Not on file Sexual Orientation Not on file Plan of Treatment Upcoming Encounters Date Type Department Care Team ([facility] Contact Info) Description 09/23/2024 10:45 AM EST Office Visit Bariatric Surgery - [place] [address] [facility] [address] [place] [address] Diaz Chavez MD 175 [facility] [address] [place] [address] Health Maintenance Due Date Last Done Comments Breast Cancer Screening 1975 Cervical Cancer Screening: Pap Smear 06/05/2014 06/05/2011 COVID-19 Vaccine ( season) 2024 08/16/2021 Social Influencers of Health Screening 04/28/2024 Depression Screening 08/24/2025 08/24/2024 Hypertension/CHF/CAD Annual BMP Blood Test 08/24/2025 08/24/2024, 08/14/2020 Colorectal Cancer Screening: FIT-DNA (Cologuard) 06/26/2026 06/26/2023 DTaP,Tdap,and Td Vaccines (3 - Td or Tdap) 09/02/2027 09/02/2017, 05/28/2007 Cholesterol Screening (Lipid Panel) 08/24/2029 08/24/2024, 01/08/2017, 11/04/2013 Hepatitis B Vaccines Completed 08/05/2018, 09/02/2017, 04/16/2001, Additional history exists HIV Screening Completed 11/11/2023, 08/14/2020 Hepatitis C Screening Completed 11/11/2023, 018 Pneumococcal Vaccine: Pediatrics (0 to 5 Years) [...] patient's age to complete this topic Meningococcal B Vacine Aged Out No lo nger eligible based on patient's age to complete this topic RSV Immunization Patients Under 20 months Aged Out No longer eligible based on patient's age to complete this topic Varicella Vaccines Aged Out No longer eligible based on patient's age to complete this topic Insurance MEDICAID - [place] Care Teams Web Application Tester Relationship Specialty Start Date End Date Silvina Douglas FNP [address] [place] [id number] PCP - General Nurse Practitioner 08/26/24
--- OUTSIDE RECORDS SUMMARY | 2024-09-22 13:55 | XMS_ITS | Clinical Summary ---
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 Renal condition will be reassessed next [...] urine for culture and will refer to [facility] nephrology for persistent and recurring s/s. Pt [...] 09/13/19 19 Dermatitis 12/05/2011 09/13/2018 Overview (12/23/2015): [place] Eczema; Probable; Urinary tract infection 05/19/200611/2015 Acute [...] 08/14/2020, 0 08/14/2020, 08/05/2018, Additional history exists [id number] () 03/21/2024 022 Alcohol and Drug Screen [...] 1 AND 2 ANTIBODY SCREEN NEGATIVE NONREACTIVE [facility] Comment: HIV testing performed at reference lab due to reagent backorder. Test performed at: [facility] [address] [place] [address] Larry Navarrete MD- Segment Producer Blood Blood / Unknown 08/14/2020 3 :59 PM EST 08/14/2020 7:48 PM EST Narrative [facility]- - 08/17/2020 2:04 PM EST [employer] a member of [address] [place] [address] Segment Producer - Carmina Gill MD PT ID [id number] ORD# [id number] Yomi Ramos MD LAB - BLOOD DRAW Final Resul t [facility] [address] [place] [address], * (ABNORMAL) COMPRE METAB PANEL (08/14/2020 3:59 PM EST) GLUCOSE 82 70 - 100 mg/dL [facility] Comment:Reference range appl icable to fasting specimens only BUN 10 5 - 25 mg/dL [facility] CREAT 0.88 0.5 - 1.1 mg/dL [facility] GLOMERULAR FILTRATION RATE > 60 [facility] Comment: If patient is -[place], multiply result by 1.21 Chronic Kidney Disease: < 60 ml/min/1.73 square meters Kidney Failure: < 15 ml/min/1.73 square meters SODIUM 137 135 - 145 mEq/L [facility] POTASSIUM 4.2 3.5 - 5.5 mmol/L [facility] CHLORIDE 107 96 - 110 mmol/L [facility] CO2 26 21 - 32 mmol/L [facility] ANION GAP 4 3 - 11 [facility] CALCIUM 8.3(L) 8.5 - 10.5 mg/dL [facility] TOTAL PROTEIN 7.1 6.0 - 8.0 G/dL [facility] ALBUMIN 3.4 3.2 - 5.0 G/dL [facility] BILI, TOTAL 0.4 0.0 - 1.4 mg/dL [facility] SGOT 17 10 - 42 U/L [facility] SGPT 17 10 - 60 U/L [facility] ALK PHOS 54 42 - 121 U/L [facility] Blood Blood / Unknown 08/14/2020 3 :59 PM EST 08/14/2020 7:48 PM EST Narrative [facility]- - 08/14/2020 8:21 PM EST [employer] a member of [address] [address] Segment Producer - Carmina Gill MD PT ID [id number] ORD# [id number] Yomi Ramos MD LAB - BLOOD DRAW Edited Resu lt - Final [facility] [employer] [address], [place] [phone] * HEPATITIS C ANTIBODY WITH RFLX TO HCV RNA PCR W/RFLX TO GENOTYPE (11/19/2017 5:19 PM EDT) HEPATITIS C ANTIBODY NON-REACTI VE NON-REACTI VE [facility] Blood specimen (specimen) Blood / Unknown 11/19/2017 5:19 PM EDT 11/19/2017 8:19 PM EDT Brianna CASTRO LAB - BLOOD DRAW Final Result [facility] [address] [place] [address], [place] [phone] * LIPID PANEL (01/08/2017 4:47 PM EDT) CHOLESTEROL 145 MG/DL [facility] Comment: CHOLESTEROL RISK CLASSIFICATION: <200 MG/DL = LOW RISK, ??200 to 239 MG/DL = BORDERLINE/HIGH RISK, ??>239 MG/DL = HIGH RISK. TRIGLYCERIDE 114 40 - 200 MG/DL [facility] HDL CHOLESTEROL 39 MG/DL [facility] Comment: HDL CHOLESTEROL RISK CLASSIFICATION: ??>55 MG/DL = LOW RISK, ??<35 MG/DL = HIGH RISK. LDL CHOLESTEROL, CALCULATED 83 MG/DL [facility] Comment: LDL CHOLESTEROL RISK CLASSIFICATION: <130 MG/DL = LOW RISK, ??130 to 159 MG/DL = BORDERLINE RISK, ??>159 MG/DL = HIGH RISK. Blood specimen (specimen) Blood / Unknown 01/08/2017 4:47 PM EDT 01/08/2017 6:43 PM EDT [facility]anna [facility] - BLOOD DRAW Final Result [facility] [address] [facility] [place] [address], [place] [phone] * PAP SMEAR (06/05/2011 3:00 AM EST) PAP SMEAR WNL NO ECC'S HPV NEGATIVE LAB - DATA CONVERSION Comment:Imported from [employer] EHR for health maintenance 06/05/2011 3:00 AM EST us Lexi Provider Default LAB - NO BLOOD DRAW Faye l Result LAB - DATA CONVERSION from Last 3 Months or Most Recently Relevant to Health Maintenance Insurance [facility] [employer] [facility]
--- OUTSIDE RECORDS SUMMARY | 2024-09-22 13:55 | XMS_ITS | Encounter Summary ---
Author Organization [employer] Address [address] [place] [address] 7 [place] [address] Care Team Providers Care Data Visualization Developer Name Role Phone Carmina Colorado MD Primary Care Pro vider Silvina Douglas NP Primary Care Provider [phone] Raymundo Al PharmD Unavailable [phone] Reason for Visit * Reason Comments Med Refill Encounter Details Date Type Department Care Team (Late st Contact Info) Description 02/26/2024 Refill [facility] [address] [place], [place] [phone] Carmina Colorado MD [address] [place], [place] [phone] Essential hypertension Social History Tobacco Use Types [...] 10/08/2024 11:30 AM EDT Office Visit [facility] [address] [place] [phone] Silvina Douglas, LUIS [address] [place] [address] 10/18/2024 2:00 PM EDT Telemedicine [facility] [address] [place] [phone] Raymundo Al, PharmD [address] [place] [address] documented as of this encounter Visit Diagnoses Diagnosis Essential hypertension Unspecified essential hypertension documented in this encounter Additional Health Concerns Assessment Noted Time PHQ-9 Depression Total Score: 22 024 2:46 PM EDT documented as of this encounter Care Teams Data Visualization Developer Relationship Specialty Start Date End Date Carmina Colorado MD [address] [place] [phone] PCP - General Internal Medicine 04/24/23 06/21/24 Silvina Douglas NP [address] [place] [address] PCP - General Family Medicine 06/22/24 Raymundo Al, Pedro [address] [place] [phone] Pharmacist Internal Medicine 09/02/24 documented as of this encounter
[2024-09-22 14:53] LABS: Bacterial Vaginosis PCR POSITIVE (Negative); Candida Group PCR NOT DETECTED (Not Detect); Candida glab krusei PCR NOT DETECTED (Not Detect); Trichomonas vaginalis PCR NOT DETECTED (Not Detect)
[2024-09-22 18:03] LABS: CT PCR NOT DETECTED (Not Detect.); NG PCR NOT DETECTED (Not Detect.)
== END 2024-09-21 00:01 | disposition home or self-care (01) ==
LOC: HO.HHCLNP
PROVIDERS: Visit Provider Internal Medicine
DX: R30.0 Dysuria (principal); N76.1 Subacute and chronic vaginitis
CPT/HCPCS: 81515; 87491; 87591

== ENCOUNTER → 2025-07-11 15:30 | Outpatient (BNV) | payer MEDICAID, SELFPAY | PROVIDERS: PCP Nurse Practitioner Family; Visit Provider Internal Medicine | DX: Z12.31 Encounter for screening mammogram for malignant neoplasm of breast (principal) | CPT/HCPCS: 77063; 77067 ==

== ENCOUNTER 2025-07-11 15:33 | Outpatient (REF) | payer MEDICAID, SELFPAY ==
--- OUTSIDE RECORDS SUMMARY | 2025-07-11 18:35 | XMS_ITS | Clinical Summary ---
Author Organization [employer] Address [address] [facility] 7t [place] [address] Care Team Providers Care Rice Farmer Name Role Phone Silvina Douglas NP Primary Care Provider [phone] Raymundo Al PharmD Unavailable Allergies Active Allergy Reactions Criticality Noted Date Comments Clindamycin Rash Low 01/26/2019 Patient reports rash Metronidazole Rash Low 07/10/2016 metronidazole pt reports itchy rash with oral pill. States she tolerated vaginal cream well. 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 albuterol 108 (90 Base) MCG/ACT inhalerIndicati ons:Cigarette nicotine dependence without complication Inhale 2 puffs every 4 (four) hours if needed for shortness of breath or wheezing. 18 g 3 024 Active buPROPion XL (Wellbutrin XL) 300 MG 24 hr tablet Take 300 mg by mouth Once per day. Do not crush, chew, or split. 450 mg a day Active buPROPion XL (Wellbutrin XL) 150 MG 24 hr tablet Take 1 tablet by mouth. ALONG WITH 300MG FOR A TOTAL OF 450MG 025 Active benzoyl peroxide (PanOxyl Foaming Wash) 10 % external washIndications :Acne, unspecified acne type Apply topically 2 times daily. 227 g 1 025 2025 Active ferrous gluconate (Fergon) 324 (38 Fe) MG tablet Take 1 tablet by mouth. Twice a week Active Fluocinolone Acetonide Scalp 0.01 % oilIndications: Folliculitis APPLY TOPICALLY TO THE AFFECTED AREA(S) TWICE A WEEK AT BEDTIME 118.28 mL Active ketoconazole (NIZOral) 2 % shampooIndicati ons:Folliculiti s APPLY TO SCALP AND LEAVE ON FOR 5 MINUTES THEN RINSE OFF TWICE A WEEK 120 mL 1 Active ketoconazole (NIZOral) 2 % cream Apply topically Once per day. 50 g Active Breo Ellipta 200-25 MCG/ACT aerosol powder Take 1 puff by mouth Once per day. 3 each 2 025 2024 Active simethicone (Mylicon) 80 MG chewable tablet Chew 80 mg every 6 (six) hours if needed for flatulence. Active ursodiol (Actigall) 300 MG capsule Take 1 capsule by mouth 2 times daily. 2025 Active amLODIPine (Norvasc) 10 MG tabletIndicatio ns:Essential hypertension Take 1 tablet (10 mg) by mouth in the morning. 90 tablet Active atorvastatin (Lipitor) 10 MG tablet Take 1 tablet (10 mg) by mouth Once per day. 90 tablet 025 2025 Active cholecalciferol (D3 Super Strength) 50 MCG (2000 UT) capsule Take 1 capsule (50 mcg) by mouth in the morning. 90 capsule 1 Active olmesartan-hydr oCHLOROthiazide (Benicar HCT) 20-12.5 MG tablet Take 1 tablet by mouth Once per day. 90 tablet 025 2025 Active lamoTRIgine (LaMICtal) 25 MG tablet TAKE 2 TABLET BY MOUTH EVERY NIGHT AT BEDTIME. ALERT HCP OF ANY NEW RASH, FEVER, SWOLLEN LYMPH NOES Active varenicline (Chantix) 1 MG tabletIndicatio ns:Nicotine dependence, uncomplicated, unspecified nicotine product type Take 1 tablet (1 mg) by mouth 2 times daily. Take with full glass of water. 56 tablet 1 025 2024 Discontinued(M ed list cleanup (will not trigger notification to Pharmacy)) Zepbound 5 MG/0.5ML solution auto-injector INJECT ONE PEN (=5MG) SUBCUTANEOUSLY ONCE A WEEK DIRECTED 2 mL 1 025 2024 Discontinued(M ed list cleanup (will not trigger notification to Pharmacy)) pantoprazole (ProtoNix) 40 MG EC tablet Take 1 tablet by mouth before breakfast. 025 2024 Active Problems Problem Noted Date Diagnosed Date Severe asthma 04/29/2025 Assessment & Plan (04/30/2025 3:49 PM EDT): Other constipation 04/29/2025 Assessment & Plan (04/30/2025 3:49 PM EDT): Severe persistent asthma 04/06/2025 Assessment & Plan (04/06/2025 10:48 AM EDT): Orders: Referral to Pulmonology; Future Shortness of breath 04/06/2025 Assessment & Plan (04/06/2025 10:48 AM EDT): Orders: Referral to Cardiology; Future Referral to Pulmonology; Future Candidal intertrigo 04/06/2025 Assessment & Plan (04/06/2025 10:48 AM EDT): COPD with acute exacerbation ([facility]) Assessment & Plan (09/21/2024 7:08 PM EST): [...] prescribed etc (all medications are sent to [facility] pharmacy on [address] [...] bp control Hypertension 08/24/2024 Assessment & Plan (04/06/2025 10:48 AM EDT): Orders: Referral to Cardiology; Future Referral to Pulmonology; Future Assessment & Plan (08/24/2024 6:39 PM EST): Above goal, meds adjusted below Measure home bp Return to clinic in 4-6 weeks sooner prn Morbid obesity (CMS/HCC) 08/24/2024 Assessment & Plan (08/24/2024 6:35 PM EST): With sleep apnea, trial glp-1 Pt would also like [facility] loss Tinea pedis of both feet 08/24/2024 [...] Back pain 11/10/2023 Cholelithiasis 11/10/2023 Onychomycosis 09/16/2023 Assessment & Plan (04/06/2025 10:48 AM EDT): Orders: Referral to Podiatry; Future Chronic obstructive pulmonary disease 04/04/2023 Overview (04/04/2023): [...] in the future for screening Eye: referred [facility] vision 11/26/22 Dental: Discuss next visit Obstructive [...] return for further evaluation with urodynamic testing. Assessment & Plan (04/06/2025 10:48 AM EDT): G6PD deficiency 07/03/2016 Overview (08/07/2022): Last Assessment [...] glutathione metabolism 05/28/2012 Overview (08/07/2022): Deficiency of gunqlav-1-gdueetzho dehydrogenase; Assessment & Plan (08/24/2024 6:39 PM EST): Labs as ordered below Vitamin D deficiency 05/28/2012 Abnormal maternal glucose tolerance, complicatin g 11/15/2009 Essential hypertension 11/15/2009 Overview (04/04/2023): Treating with amlodipine 10 mg daily Denies syncope, lightheadedness, JUAN, chest pain, SOB, unilateral weakness Discontinued Olmesartan d/t knee swelling Assessment & Plan (04/30/2025 3:49 PM EDT): Orders: amLODIPine (Norvasc) 10 MG tablet; Take 1 tablet (10 mg) by mouth in the morning. Assessment & Plan (09/21/2024 7:10 PM EST): [...] Overview (08/07/2022): Large for gestational dates; Encounters * This document contains information received from the source organization and may not represent a complete record from that organization. Date Type Department Care Team Description 06/30/[address] [address] Aileen Lizarraga, Pedro 06/23/[address] [address] Quoc Moore [place] CHART PREP 05/25/[address] [address] Silvina Douglas NP Prior Authorization 04/29/2025 2:00 PM EDT Office Visit [address] [address] Silvina Douglas NP Severe asthma, unspecified whether complicated, unspecified whether persistent (Primary Dx); Other constipation; Essential hypertension; Encounter for immunization; Encounter for screening mammogram for malignant neoplasm of breast; Healthcare maintenance 04/29/2025 Travel 04/28/[address] [address] Silvina Douglas NP Chart Prep 04/25/2025 Patient Outreach [address] [address] Silvina Douglas NP Transition Of Care (Tcm) (HDF- scheduled and SDOH screening completed on 08/11/2024) 04/15/2025 Telephone [facility] [address] [place] [address] Silvina Douglas NP from Last 3 Months Immunizations Immunization Administration Dates Next Due Hep B, Unspecified 04/16/2001,04/02/2001 Hep B, adult 08/05/2018,09/02/2017 Influenza injectable quadriv alent preservative free 07/04/2023 Influenza, Unspecified 05/19/2012,05/16/2009,02/2007 Influenza, seasonal, injecta ble, preservative free 04/29/2025,05/19/2024 Moderna Covid-19 Vaccine 12+ 08/16/2021 PPD Test [...] Types Packs/Day Years Used Date Smoking Tobacco: Former Cigarettes Q uit: 11/18/2024 Passive Smoke Exposure: Past Smokeless Tobacco: Never Tobacco Cessation:Counseling Given: Not Answered Comments:Started 15 y of age until now,was able to stop for 9 months , Smoking 6 cig a day ,smoking for 33-will need to calc lung ca screening risk at her 50 y of age . Update - quit in Spring 2024 and maintaining cessation since then. Alcohol Use Standard Drinks/Week Comments Yes 0 (1 standard drink = 0.6 oz pure alcohol) Usually on weekends, cognac 4 drinks. Depression Answer Date Recorded Patient Health Questionnaire-9 Score 21 04/06/2025 Patient Health Questionnaire-9 Score 21 04/06/2025 Last PHQ-9: Questionnaire Data Not on file 0 04/06/2025 Housing Stability Answer Date Recorded What is [...] Date Recorded Patient Health Questionnaire-2 Score 6 04/06/2025 Internet Access Answer Date Recorded Internet Access [...] Sign Reading Time Taken Comments Blood Pressure 126/76 04/29/2025 2:14 PM EDT Pulse 84 04/29/2025 2:14 PM EDT Temperature 36.7 C (98.1 F) 04/29/2025 2:14 PM EDT Respiratory Rate 20 04/29/2025 2:14 PM EDT Oxygen Saturation 98% 04/06/2025 9:47 AM EDT Inhaled Oxygen Concentration - - Weight 120 kg (265 lb 3.2 oz) 04/29/2025 2:14 PM EDT Height 160.7 cm (5' 3.25 ) 04/29/2025 2:14 PM ED T Body Mass Index 46.61 04/29/2025 2:14 PM EDT Plan of Treatment Upcoming Encounters Date Type Department Care Team (Late st Contact Info) Description 08/22/2025 3:15 PM EST Office Visit [facility] [address] [place] [address] Silvina Douglas, LUIS [address] [place] [address] Health Maintenance Due Date Last Done Comments CT Colonography 1975 Colonoscopy 1975 FIT 1975 Sigmoidoscopy 1975 Family Planning (PISQ) 1990 Pap Smear 1996 Cervical Cancer Screening 2005 HPV/Cotest 2005 FOBT 06/26/2024 06/26/2023 RSV Patients and Patients Aged 60 years or older (1 - Risk 50-74 years 1-dose series) 2025 Zoster Vaccines (1 of 2) 2025 Mammogram 04/12/2025 04/12/2023, 04/12/2023 SDOH Screening 08/11/2025 08/11/2024 Alcohol/Substance Use Screening 08/24/2025 08/24/2024 Depression Monitoring 10/04/2025 04/06/2025, 025 Disability Screening 04/06/2026 04/06/2025 Colorectal Cancer Screening 06/26/2026 FIT DNA/Cologuard 06/26/2026 06/26/2023 Tobacco Screening 06/30/2026 06/30/2025 DTaP/Tdap/Td Vaccines (2 - Td or Tdap) 09/02/2027 09/02/2017, 05/28/2007 Lipid Panel 08/24/2029 08/24/2024, 10/20, 12/02/2022 Hepatitis B Vaccines Completed 08/05/2018, 09/02/2017, 04/16/2001, Additional history exists COVID-19 Vaccine Discontinued 07/10/2022, 08/16/2021 HIV Screening Completed 11/11/2023, 08/14/2020 Hepatitis C Screening Completed 11/11/2023, 023 Pneumococcal Vaccine: 50+ Years Completed 12/22/2023, 08/05/2018 Influenza Vaccine Completed 04/29/2025, , 07/04/2023, Additional history exists HIB Vaccines Aged Out [...] age to complete this topic Meningococcal B Vaccine Aged Out No l onger eligible based on patient's age to complete [...] Procedure Name Priority Date/Time Associated Diagnosis Comments AMB REFERRAL TO CARDIOLOGY Urgent 04/14/2025 Shortness of breath Resistant hypertension LIPID PANEL, STANDARD Routine 08/24/2024 12:16 PM EST Hyperlipidemia, unspecified hyperlipidemia type HEPATITIS C AB W/REFL TO HCV RNA, QN, PCR Routine 11/11/2023 1:05 PM EDT Annual physical exam HIV 1/2 ANTIGEN/ANTIBODY, FOURTH GENERATION W/RFL Routine 11/11/2023 1:05 PM EDT Annual physical exam LAB COLOGUARD COLON CANCER SCREEN Routine 06/26/2023 9:50 PM EST Encounter for screening for malignant neoplasm of colon BI MAMMOGRAM SCREENING TOMOSYNTHESIS BILATERAL Routine 04/12/2023 10:11 AM EDT from Last 3 Months or Most Recently Relevant to Health Maintenance Results * Referral to Cardiology (04/14/2025) us Silvina Douglas NP OUTPATIENT REFERRAL ORDERABLES F inal Result * (ABNORMAL) Lipid Panel, Standard (08/24/2024 12:16 PM EST) Triglycerides 119 <150 mg/dL [facility] Comment:Desirable Triglyceri de: less than 150 mg/dLBorderline High Triglyceride 150-199 mg/dLHigh Triglyceride: 200-499 mg/dLVery High Triglyceride: greater than or equal to 5OO mg/dL Cholesterol 237(H) <200 mg/dL [facility] Comment:Desirable Cholestero l: less than 200 mg/dLBorderline High Cholesterol: 200-239 mg/dLHigh Cholesterol: greater than 239 mg/dL LDL Cholesterol Calculated 167(H) <100 mg/dL [facility] Comment:Desirable LDL: less than 100 mg/dLNear Optimal/Above Optimal LDL: 110- 129 mg/dLBorderline High LDL: 130-159 mg/dLHigh LDL: 160-189 mg/dLVery High LDL: greater than or equal to 190 mg/dL HDL Cholesterol 47 >40 mg/dL [facility] Comment:Desirable HDL: great er than 40 mg/dL Note: This HDL assay may give artificially low results in patients with liver disease. Blood Venous blood specimen / Unknown 08/24/2024 12:16 PM EST 08/24/2024 1:11 PM EST us Carmina Quiroga MD LAB BLOOD ORDERAB LES Final Result Performing Organization Address City/[facility]/ZIP Co de Phone Number [facility] [address] [place] [phone] * Hepatitis C Antibody with Reflex to HCV, RNA, Quantitative, Real-Time PCR (11/11/2023 1:05 PM EDT) Pathologist [facility] Hepatitis C Antibody Nonreactive Nonreactive [facility] Comment:Antibodies to HCV no t detected; does not exclude early acuteHCV infection. Blood Venous blood specimen / Unknown 11/11/2023 1:05 PM EDT 11/11/2023 4:02 PM EDT us Carmina Quiroga MD LAB BLOOD ORDERAB LES Final Result Performing Organization Address [facility]/ZIP Co de Phone Number [facility] [address] [place] [phone] * HIV-1/2 Antigen and Antibodies, Fourth Generation, with Reflexes (11/11/2023 1:05 PM EDT) HIV AB/AG Nonreactive Nonreactive [facility] Comment:HIV-1 p24 Ag and/or HIV-1/HIV-2 Ab not detected.A test result that is nonreactive does not exclude thepossibility of exposure to or infection with HIV-1 and/orHIV-2. Nonreactive results in this assay for individualswith prior exposure to HIV-1 and/or HIV-2 may be due toantigen and antibody levels that are below the limit ofdetection of this assay.The Oculeve HIV Ag/Ab Combo assay result andsupplemental assay results should be interpreted inconjunction with the patient's clinical presentation,history and other laboratory results. If the results areinconsistent with clinical evidence, additional testing issuggested to confirm the result. Blood Venous blood specimen / Unknown 11/11/2023 1:05 PM EDT 11/11/2023 4:02 PM EDT Carmina Quiroga MD LAB BLOOD ORDERAB LES Final Result [facility] [address] [place] [phone] * Cologuard?? colon cancer screening (06/26/2023 9:50 PM EST) [facility] Cologuard Result Negative Negative 07/05/20 1:05 AM EST [employer] (CLIA #:[id number]) Comment: NEGATIVE TEST RESULT. A negative Cologuard result indicates a low likelihood that a colorectal cancer (CRC) or advanced adenoma (adenomatous polyps with more advanced pre-malignant features) is present. The chance that a person with a negative Cologuard test has a colorectal cancer is less than 1 in 1500 (negative predictive value >99.9%) or has an advanced adenoma is less than 5.3% (negative predictive value 94.7%). These data are based on a prospective cross-sectional study of 10,000 individuals at average risk for colorectal cancer who were screened with both Cologuard and colonoscopy. (Brenda Hazel al, N Engl J Med 2014;370(14):8416-6011) The normal value (reference range) for this assay is negative. COLOGUARD RE-SCREENING RECOMMENDATION: Periodic colorectal cancer screening is an important part of preventive healthcare for asymptomatic individuals at average risk for colorectal cancer. Following a negative Cologuard result, the [place] Cancer Society and U.S. Multi-Society Task Force screening guidelines recommend a Cologuard re-screening interval of 3 years. References: [place] Cancer Society Guideline for Colorectal Cancer Screening: https://www.cancer.org/cancer/cojwq-oklapa-gczgtg/dpubxolws-bduxzvals-dwckfrb/ac s-rec ommendations.html.; John DK, Beronica CR, Delonte DanielsonK, Colorectal Cancer Screening: Recommendations for Physicians and Patients from the U.S. Multi-Society Task Force on Colorectal Cancer Screening , Am J Gastroenterology 2017; 112:5598-6829. TEST DESCRIPTION: Composite algorithmic analysis of stool DNA-biomarkers with hemoglobin immunoassay. Quantitative values of individual biomarkers are not [...] (Brenda Hazel al, N Engl J Med 2014;370(14):2155-3626.) Cologuard may produce a false negative or false positive result (no colorectal cancer or precancerous polyp present at colonoscopy follow up). A negative Cologuard test result does not guarantee the absence of CRC or advanced adenoma (pre-cancer). The current Cologuard screening interval is every 3 years. ([place] Cancer Society and U.S. Multi-Society Task Force). Cologuard performance data in a 10,000 patient pivotal study using colonoscopy as the reference method can be accessed at the following location: www.Waps.cn.SPIRIT Navigation/results. Additional description of the Cologuard test process, warnings and precautions can be found at www.Peanut Labsrd.com. Stool specimen (specimen) Rectal contents / Unknown 06/26/2023 9:50 PM EST 06/28/2023 4:06 PM EST Rosa Santos RETAIL PLANNING MANAGER LAB MOLECULAR DIAGNOSTICS ORDERABLES Final Result [employer] (CLIA #:[id number]) [place] [address], * BI Mammogram Screening Tomosynthesis Bilateral (04/12/2023 10:11 AM EDT) Anatomical Region Laterality Modality Breast Bilateral Mammography 04/12/2023 10:1 1 AM EDT Narrative 04/19/2023 9:57 PM EDT [facility] [address] [place] [address] Mammography Report Signed Patient: Lizbeth March MR#: [id number] 8 : 1975 Acct:[id number] Age/Sex: 48 / F ADM Date: 04/12/23 Loc: HO.MAMMO Attending Dr: Rosa Santos RETAIL PLANNING MANAGER Ordering Physician: Rosa Santos Results: 1N egative Date of Service: 04/12/23 Follow Up: 1 Year From Orig ina Mammogram Procedure(s): MM tomosynthesis screening BI Accession Number(s): [id number] cc: Rosa Santos EXAMINATION: MM SCREENING DIGITAL BREAST TOMOSYNTHESIS, BILATERAL [...] signed by Edelmira Mason MD in OV> 04/19/232152 DD/ 1011 TD/TT: Emergency Room Tech: Procedure Note Donotuseinterpreter, Image - 04/19/2023 [facility] [address] [place] [address] Mammography Report Signed Patient: Sade March#: [id number] 8 : 1975Acct:[id number] Age/Sex: 48 / FADM Date: 04/12/23 Loc: MAMMO Attending Dr: Rosa Santos RETAIL PLANNING MANAGER Ordering Physician: Rosa Santos FNPResults: 1N egative Date of Service: 04/12/23Follow Up: 1 Year From Orig ina Mammogram Procedure(s): MM tomosynthesis screening BI Accession Number(s): [id number] cc: Rosa Santos RETAIL PLANNING MANAGER EXAMINATION: MM SCREENING DIGITAL BREAST TOMOSYNTHESIS, [...] in OV> 04/19/23 2153 DD/ 1011 TD/TT: Emergency Room Tech: Rosa Santos RETAIL PLANNING MANAGER IMG BI PROCEDURES Edited R esult - Final from Last 3 Months or Most Recently Relevant to Health Maintenance Insurance [employer] [facility] STANDARD Care Teams Rice Farmer Relationship Specialty Start Date End Date Silvina Douglas NP [address] [place] [address] PCP - General Family Medicine 06/22/24 Raymundo Al, JaydeD [address] [place] [address] Pharmacist Internal Medicine 09/02/24
--- OUTSIDE RECORDS SUMMARY | 2025-07-11 18:35 | XMS_ITS | Encounter Summary ---
Author Organization [facility] Address [address] [place] [address] 7t [place] [address] Care Team Providers Care Landscape Architect Name Role Phone Carmina Colorado MD Primary Care Pro vider Silvina Douglas NP Primary Care Provider [phone] Raymundo Al PharmD Unavailable [phone] Reason for Visit * Reason Comments Med Refill Encounter Details Date Type Department Care Team (Late st Contact Info) Description 02/26/2024 Refill [facility]INE [address] [place], [place] [phone] Carmina Colorado MD [address] [place], [place] [phone] Essential hypertension Social History Tobacco Use Types [...] Description 08/22/2025 3:15 PM EST Office Visit [facility] MEDICINE [address] [place] [phone] Silvina Douglas NP [address] [place] [phone] documented as of this encounter Visit Diagnoses Diagnosis Essential hypertension Unspecified essential hypertension documented in this encounter Additional Health Concerns Assessment Noted Time PHQ-9 Depression Total Score: 22 024 2:46 PM EDT documented as of this encounter Care Teams Landscape Architect Relationship Specialty Start Date End Date Carmina Colorado MD [address] [place] [phone] PCP - General Internal Medicine 04/24/23 06/21/24 Silvina Douglas NP [address] [place] [phone] PCP - General Family Medicine 06/22/24 Raymundo Al, JaydeD [address] [place] [phone] Pharmacist Internal Medicine 09/02/24 documented as of this encounter
--- OUTSIDE RECORDS SUMMARY | 2025-07-11 18:35 | XMS_ITS | Encounter Summary ---
Author Organization [employer] Address [address] [place] [address] 7 [place] [address] Care Team Providers Care Sanding Machine Buffer Name Role Phone Silvina Douglas NP Primary Care Provider [phone] Raymundo Al PharmD Unavailable [phone] Reason for Visit * Reason Comments Med Refill Encounter Details Date Type Department Care Team ([facility] st Contact Info) Description 06/26/2024 Refill [facility] MEDICINE [address] [place] [address] Carmina Colorado MD [address] [place] [address] Social History Tobacco Use Types Packs/Day Years [...] Description 08/22/2025 3:15 PM EST Office Visit [facility] MEDICINE [address] [place] [phone] Silvina Douglas NP [address] [place] [address] documented as of this encounter Visit Diagnoses Not on filedocumented in this encounter Additional Health Concerns Assessment Noted Time PHQ-9 Depression Total Score: 22 024 2:46 PM EDT documented as of this encounter Care Teams Sanding Machine Buffer Relationship Specialty Start Date End Date Silvina Douglas NP [address] [place] [phone] PCP - General Family Medicine 06/22/24 Raymundo Al, Pedro [address] [place] [phone] Pharmacist Internal Medicine 09/02/24 documented as of this encounter
--- OUTSIDE RECORDS SUMMARY | 2025-07-11 18:35 | XMS_ITS | Clinical Summary ---
Author Organization [facility] Address [address] [place] [address] Care Team Providers Care Residential Air Sealing Technician Name Role Phone Silvina Douglas GLORIA Primary Care Provider [phone] Allergies Active Allergy Reactions Criticality Noted Date Comments Clindamycin Rash Low 01/26/2019 Patient reports rash Metronidazole Rash Low 07/10/2016 metronidazole pt reports itchy rash after taking-- metronidazole pt reports itchy rash with oral pill. States she tolerated vaginal cream well. 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 4 Active amLODIPine (NORVASC) 10 mg tablet Take 1 tablet (10 mg total) by mouth daily. 3 Active buPROPion XL (WELLBUTRIN XL) 150 mg 24 hr tablet Take 1 tablet (150 mg total) by mouth 1 (one) time each day. Active phentermine (ADIPEX-P) 37.5 mg tablet Take 1 tablet (37.5 mg total) by mouth 1 (one) time each day. Max Daily Amount: 37.5 mg 5 Active Breo Ellipta 200-25 mcg/dose inhaler Inhale 1 puff by mouth 1 (one) time each day. Active acetaminophen (TYLENOL) 500 mg tablet Take 2 tablets (1,000 mg total) by mouth every 8 (eight) hours. 180 tablet 5 Active simethicone (MYLICON) 80 mg chewable tablet Chew 1 tablet (80 mg total) every 6 (six) hours if needed for flatulence. 120 tablet 5 Active ursodioL (ACTIGALL) 300 mg capsule Take 1 capsule (300 mg total) by mouth 2 (two) times a day. 60 each 5 5 10/06/19 26 Active wheat dextrin 3 gram/3.5 gram powder in packet Take 1 packet by mouth 1 (one) time each day. 30 packet 5 Active polyethylene glycol (PEG) 17 gram/dose oral powder DISSOLVE 17 GRAMS IN 8 OZ OF FLUID LIQUID DRINK DAILY DIRECTED 510 g 5 Active buPROPion XL (WELLBUTRIN XL) 300 mg 24 hr tablet Take 1 tablet (300 mg total) by mouth 1 (one) time each day. Do not crush, chew, or split. Active oxyCODONE (ROXICODONE) 5 mg immediate release tablet Take 1 tablet (5 mg total) by mouth every 4 (four) hours if needed for moderate pain. Max Daily Amount: 30 mg 15 tablet 5 Active pantoprazole (PROTONIX) 40 mg EC tablet Take 1 tablet (40 mg total) by mouth 1 (one) time each day before breakfast. Do not crush, chew, or split. 30 each 2 5 07/07/20 25 Active Problems Problem Noted Date Diagnosed Date Morbid obesity 03/28/2025 Class 3 severe obesity with serious comorbidity and body mass index (BMI) of 50.0 to 59.9 in adult 03/25/2025 Class 3 severe obesity with serious comorbidity and body mass index (BMI) of 45.0 to 49.9 in adult 12/30/2024 Class 3 severe obesity with serious comorbidity and body mass index (BMI) of 45.0 to 49.9 in adult 12/30/2024 Class 3 severe obesity with serious comorbidity and body mass index (BMI) of 45.0 to 49.9 in adult 11/29/2024 Class 3 severe obesity with serious comorbidity and body mass index (BMI) of 45.0 to 49.9 in adult 10/25/2024 HTN (hypertension) 08/27/2024 Obstructive sleep apnea 08/27/2024 COPD (chronic obstructive pulmonary disease) 01/2025 Hyperlipidemia 08/27/2024 Prolonged Q-T interval on ECG 08/27/2024 Morbidly obese 08/27/2024 Nontoxic single thyroid nodule 12/09/2013 Vitamin D deficiency 05/28/2012 Tobacco use disorder 11/15/2009 Encounters Date Type Department Care Team Description 07/01/2025 Telephone [facility] Hematology Oncology [address] [place] [address] Sneha Novak MA 05/27/2025 Telephone [facility] Hematology Oncology [address] [place] [phone] Sneha Novak MA 05/23/2025 11:30 AM EST Telemedicine Bariatric Surgery - [address] [phone] Brianna Bagley RD S/P bariatric surgery (Primary Dx) 05/11/2025 1:00 PM EDT Office Visit [facility] Hematology Oncology [address] [place] [phone] Mg Turner MD 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, CMS/HCC V28) (Primary Dx) 05/04/2025 10:45 AM EDT Office Visit Bariatric Surgery - [address] [phone] Delores Ray PA Class 3 severe obesity due to excess calories with serious comorbidity and body mass index (BMI) of 45.0 to 49.9 in adult (CMS/HCC V24, CMS/HCC V28) (Primary Dx); Bariatric surgery status; Gastrointestinal stromal tumor (CMS/HCC V24, CMS/HCC V28) 04/20/2025 11:01 AM EDT Anesthesia Event [facility] OR [address] [place] [phone] Aaliyah Ko MD Lema Alava, Steven, SRNA 04/20/2025 11:00 AM EDT - 04/20/2025 1:30 PM EDT Surgery [facility] Main OR [address] [place] [phone] Diaz Chavez MD DAVINCI SLEEVE GASTRECTOMY [13766 (CPT )] 04/20/2025 9:29 AM EDT - 04/22/2025 11:48 AM EDT Hospital Encounter [facility] Medical Surgical Unit [address] [place] [phone] Diaz Chavez MD Morbid obesity (CMS/HCC V24, CMS/[facility] V28) Discharge Disposition: Home or Self Care 04/18/2025 2:30 PM EDT Consult Pulmonology - [place] [address] [facility] [address] [place] [phone] Jaja Garner MD Shortness of breath (Primary Dx); Morbidly obese (CMS/HCC V24, CMS/HCC V28); Obstructive sleep apnea 04/14/2025 11:20 AM EDT Office Visit [facility] Cardiology [facility] [place] [facility] [address] [facility] [address] [place] [address] Elizabeth Espino MD Shortness of breath (Primary Dx); Resistant hypertension; Mixed hyperlipidemia; Preop cardiovascular exam 04/13/2025 Telephone [facility] Cardiology [facility] [address] [place] [address] Silvina Douglas FNP 04/12/2025 Telephone [facility] [address] [place] [address] Silvina Douglas FNP 04/12/2025 Telephone [facility] [address] [place] [address] Graef, Silvina, [employer] CH[employer]PER from Last 3 Months Surgical History Surgery Date Site/Laterality Comments SECTION, LOW TRANSVERSE LYMPHANGIOMA EXCISION DENTAL SURGERY Medical History Medical History Date Comments Asthma Sleep apnea Hypertension Hyperlipidemia Dental disease Morbid obesity ([facility] V24, [facility] V28) Family History Medical History Relation Name Comments No Known Problems Brother Diabetes Father Graves' disease Mother No Known Problems Sister Relation Name Status Comments Brother Alive 2 brothers Father Alive Mother Alive Sister Alive 2 sisters Social History Tobacco Use Types Packs/Day Years Used Date Smoking Tobacco: Former Cigarettes Smokeless Tobacco: Never Tobacco Cessation:Counseling Given: Not Answered Alcohol Use Standard Drinks/Week Comments Not Currently 0 (1 standard drink = 0.6 oz pur e alcohol) Interpersonal Safety Answer Date Record ed Physical Abuse Unrecognized value 04/20/2025 Verbal Abuse Unrecognized value 04/20/2025 Comments No Sex and Gender Information Value Date Recorded Sex Assigned at Not on file Legal Sex Female 2:59 PM EST Gender Identity Not on file Sexual Orientation Not on file Last Filed Vital Signs Vital Sign Reading Time Taken Comments Blood Pressure 107/62 05/11/2025 12:59 PM EDT Pulse 78 05/11/2025 12:59 PM EDT Temperature 36.9 C (98.4 F) 05/11/2025 12:59 PM EDT Respiratory Rate 17 04/22/2025 7:26 AM EDT Oxygen Saturation 98% 05/11/2025 12:59 PM EDT Inhaled Oxygen Concentration - - Weight 117 kg (257 lb) 05/23/2025 11:00 AM EST Height 160 cm (5' 3 ) 05/11/2025 12:59 PM EDT Body Mass Index 45.53 05/11/2025 12:59 PM EDT Plan of Treatment Upcoming Encounters Date Type Department Care Team (Late st Contact Info) Description 07/28/2025 5:00 PM EST Appointment [facility] CT Scan [address] [place] [address] 08/16/2025 3:00 PM EST Nutrition Bariatric Surgery - [place] [address] [facility] [address] [place] [phone] Brianna Bagley, RD [address] [facility] [address] [place] [address] 11/08/2025 1:30 PM EDT Office Visit [facility] Hematology Oncology [address] [place] [phone] Mg Turner MD [address] [place] [phone] 11/30/2025 3:00 PM EDT Office Visit Bariatric Surgery - [place] [address] [facility] [address] [place] [address] Delores Ray PA [address] [place] [phone] Health Maintenance Due Date Last Done Comments Breast Cancer Screening 1975 Drug Screen 1975 Non-Opioid Controlled Substance Agreement 1975 Cervical Cancer Screening: Pap Smear 06/05/2014 06/05/2011 Social Influencers of Health Screening 04/28/2024 Depression Screening 07/21/2024 RSV Immunization Adult Patients (1 - Risk 50-74 years 1-dose series) 2025 Zoster Vaccines (1 of 2) 2025 COVID-19 Vaccine ( - 2024- season) 2025 07/10/2022, 08/16/2021 Hypertension/CHF/CAD Annual BMP Blood Test 04/22/2026 04/22/2025, 04/21/2025, 04/20/2025, Additional history exists Colorectal Cancer Screening: FIT-DNA (Cologuard) 06/26/2026 06/26/2023 DTaP,Tdap,and Td Vaccines (3 - Td or Tdap) 09/02/2027 09/02/2017, 05/28/2007 Cholesterol Screening (Lipid Panel) 04/14/2030 04/14/2025, 08/24/2024, 01/08/2017, Additional history exists Hepatitis B Vaccines Completed 08/05/2018, 09/02/2017, 04/16/2001, Additional history exists HIV Screening Completed 11/11/2023, 08/14/2020 Hepatitis C Screening Completed 11/11/2023, 05/02/2 018 Pneumococcal Vaccine: 50+ Years Completed 12/22/2023, 08/05/2018 [...] Procedure Name Priority Date/Time Associated Diagnosis Comments PHOSPHORUS Routine 04/22/2025 6:02 AM EDT MAGNESIUM Routine 04/22/2025 6:02 AM EDT BASIC METABOLIC PANEL Routine 04/22/2025 6:02 AM EDT LAVENDER - EDTA Routine 04/22/2025 5:59 AM EDT EXTRA TUBES Routine 04/22/2025 5:59 AM EDT CBC WITH AUTO DIFFERENTIAL Routine 04/21/2025 5:48 AM EDT BASIC METABOLIC PANEL Routine 04/21/2025 5:48 AM EDT CBC AND DIFFERENTIAL Routine 04/21/2025 5:48 AM EDT PHOSPHORUS Routine 04/21/2025 5:48 AM EDT MAGNESIUM Routine 04/21/2025 5:48 AM EDT LAVENDER - EDTA Routine 04/20/2025 7:33 PM EDT EXTRA TUBES Routine 04/20/2025 7:33 PM EDT CREATININE, SERUM Routine 04/20/2025 7:3 3 PM EDT MCCOLLUM URINE CULTURE TUBE Routine 04/20/2025 6:44 PM EDT URINALYSIS WITH REFLEX MICROSCOPIC AND CULTURE Routine 04/20/2025 6:44 PM EDT URINALYSIS WITH REFLEX MICROSCOPIC AND CULTURE Routine 04/20/2025 6:44 PM EDT OXYGEN THERAPY, ADULT Routine 04/20/2025 12:52 PM EDT TISSUE EXAM Routine 04/20/2025 12:30 PM EDT Morbid obesity (CMS/HCC V24, CMS/HCC V28) TH AN ENDOTRACHEAL(NO CHARGE) Routine 04/20/2025 11:46 AM EDT SD LAP SURGICAL GASTRIC RESTRICTIVE PROCEDURE LONGITUDINAL GASTRECTOMY 04/20/2025 11:05 AM EDT Morbid obesity (CMS/HCC V24, CMS/HCC V28) POC PREGANCY, URINE NO CHARGE SCREENING MANUALLY RESULTED Routine 04/20/2025 9:45 AM EDT LIPID PANEL WITH REFLEX TO DIRECT LDL Routine 04/14/2025 12:02 PM EDT Mixed hyperlipidemia ECG 12-LEAD Routine 04/14/2025 11:08 AM EDT Shortness of breath from Last 3 Months Results * Phosphorus (04/22/2025 6:02 AM EDT) Only the most recent of2 resultswithin the time period is included. Phosphorus 2.8 2.5 - 4.5 mg/dL LAB CHEMISTRY METHOD 04/22/2025 7:12 AM EDT [facility] Blood Venous blood specimen / Unknown Venipuncture / Unknown 04/22/2025 6:02 AM EDT 04/22/2025 6:29 AM EDT Mihaela VICK LAB BLOOD ORDERABLES Final Resu lt Performing Organization Address [facility]/ZIP Co de Phone Number [facility] [address] [place] [address], [place] [phone] * Magnesium (04/22/2025 6:02 AM EDT) Only the most recent of2 resultswithin the time period is included. Magnesium 2.1 1.9 - 2.6 mg/dL LAB CHEMISTRY METHOD 04/22/2025 7:12 AM EDT [facility] Blood Venous blood specimen / Unknown Venipuncture / Unknown 04/22/2025 6:02 AM EDT 04/22/2025 6:29 AM EDT Mihaela VICK LAB BLOOD ORDERABLES Final Resu lt Performing Organization Address [facility]/ZIP Co de Phone Number [facility] [address] [place] [address], [place] [phone] * (ABNORMAL) Basic metabolic panel (04/22/2025 6:02 AM EDT) Only the most recent of2 resultswithin the time period is included. Sodium 139 133 - 145 mmol/L LAB CHEMISTRY METHOD 04/22/2025 7:12 AM EDT [facility] Potassium 3.7 3.5 - 5.5 mmol/L LAB CHEMISTRY METHOD 04/22/2025 7:12 AM EDT [facility] Chloride 104 96 - 110 mmol/L LAB CHEMISTRY METHOD 04/22/2025 7:12 AM EDT [facility] CO2 29 21 - 32 mmol/L LAB CHEMISTRY METHOD 04/22/2025 7:12 AM EDT [facility] Anion Gap 6 3 - 11 LAB CHEMISTRY METHOD 04/22/2025 7:12 AM EDT [facility] Glucose 104(H) 70 - 100 mg/dL LAB CHEMISTRY METHOD 04/22/2025 7:12 AM EDT [facility] BUN 9 5 - 25 mg/dL LAB CHEMISTRY METHOD 04/22/2025 7:12 AM EDT [facility] Creatinine 0.90 0.50 - 1.10 mg/dL LAB CHEMISTRY METHOD 04/22/2025 7:12 AM EDT [facility] eGFR 78 >=60 mL/min/1. 73m2 LAB CHEMISTRY METHOD 04/22/2025 7:12 AM EDT [facility] Comment:Calculation based on the Chronic Kidney Disease Epidemiology Collaboration (CKD-EPI) equation refit without adjustment for race. BUN/Creatinine Ratio 10.0 LAB CHEMISTRY METHOD 04/22/2025 7:12 AM EDT [facility] Calcium 8.7 8.5 - 10.5 mg/dL LAB CHEMISTRY METHOD 04/22/2025 7:12 AM EDT [facility] Blood Venous blood specimen / Unknown Venipuncture / Unknown 04/22/2025 6:02 AM EDT 04/22/2025 6:29 AM EDT Mihaela VICK LAB BLOOD ORDERABLES Final Resu lt [facility] [address] [place] [address], * Lavender tube (04/22/2025 5:59 AM EDT) Only the most recent of2 resultswithin the time period is included. Extra Tube Hold for add-ons. 04/22/2025 8:01 AM EDT [facility] Comment:Auto resulted. Blood Venous blood specimen / Unknown Venipuncture / Unknown 04/22/2025 5:59 AM EDT 04/22/2025 6:32 AM EDT us Diaz Chavez MD LAB BLOOD ORDERABLES Final R esult [facility] [address] [place] [address], [place] [phone] * (ABNORMAL) CBC auto differential (04/21/2025 5:48 AM EDT) [facility] WBC 10.5 4.8 - 10.8 K/mcL LAB HEMETOLOGY METHOD 04/21/2025 6:38 AM EDT [facility] RBC 5.20(H) 3.80 - 4.80 M/mcL LAB HEMETOLOGY METHOD 04/21/2025 6:38 AM EDT [facility] Hemoglobin 13.3 11.5 - 16.0 g/dL LAB HEMETOLOGY METHOD 04/21/2025 6:38 AM EDT [facility] Hematocrit 42.4 35.0 - 47.0 % LAB HEMETOLOGY METHOD 04/21/2025 6:38 AM EDT [facility] MCV 81.4 79.0 - 98.0 FL LAB HEMETOLOGY METHOD 04/21/2025 6:38 AM EDT [facility] MCH 25.5(L) 27.0 - 32.0 pcg LAB HEMETOLOGY METHOD 04/21/2025 6:38 AM EDT [facility] MCHC 31.4(L) 32.0 - 37.0 g/dL LAB HEMETOLOGY METHOD 04/21/2025 6:38 AM EDT [facility] RDW 13.1 11.0 - 15.0 % LAB HEMETOLOGY METHOD 04/21/2025 6:38 AM EDT [facility] Platelets 279 130 - 400 K/mcL LAB HEMETOLOGY METHOD 04/21/2025 6:38 AM [facility] MPV 11.4(H) 7.0 - 11.0 FL LAB HEMETOLOGY METHOD 04/21/2025 6:38 AM [facility] NRBC 0.0 <1.0 % LAB HEMETOLOGY METHOD 04/21/2025 6:38 AM [facility] NRBC Absolute 0.00 <0.10 K/mcL LAB HEMETOLOGY METHOD 04/21/2025 6:38 AM [facility] Neutrophils Relative 82.6 % LAB HEMETOLOGY METHOD 04/21/2025 6:38 AM [facility] Lymphocytes Relative 9.9 % LAB HEMETOLOGY METHOD 04/21/2025 6:38 AM [facility] Monocytes Relative 7.1 % LAB HEMETOLOGY METHOD 04/21/2025 6:38 AM [facility] Eosinophils Relative 0.0 % LAB HEMETOLOGY METHOD 04/21/2025 6:38 AM [facility] Basophils Relative 0.1 % LAB HEMETOLOGY METHOD 04/21/2025 6:38 AM [facility] Immature Granulocytes Relative 0.3 % LAB HEMETOLOGY METHOD 04/21/2025 6:38 AM [facility] Neutrophils Absolute 8.64(H) 1.50 - 7.00 K/mcL LAB HEMETOLOGY METHOD 04/21/2025 6:38 AM [facility] Lymphocytes Absolute 1.03 1.00 - 5.00 K/mcL LAB HEMETOLOGY METHOD 04/21/2025 6:38 AM [facility] Monocytes Absolute 0.74 0.20 - 1.00 K/mcL LAB HEMETOLOGY METHOD 04/21/2025 6:38 AM [facility] Eosinophils Absolute 0.00 0.00 - 0.50 K/mcL LAB HEMETOLOGY METHOD 04/21/2025 6:38 AM EDT [facility] Basophils Absolute 0.01 0.00 - 0.20 K/[facility] LAB HEMETOLOGY METHOD 04/21/2025 6:38 AM EDT [facility] Immature Granulocytes Absolute 0.03 0.00 - 0.03 K/[facility] LAB HEMETOLOGY METHOD 04/21/2025 6:38 AM EDT [facility] Blood Venous blood specimen / Unknown Venipuncture / Unknown 04/21/2025 5:48 AM EDT 04/21/2025 6:20 AM EDT Shari VICK LAB BLOOD ORDERABLES Final R esult Performing Organization Address [facility]/ZIP Co de Phone Number [facility] [address] [place] [address], [place] [phone] * Creatinine serum (04/20/2025 7:33 PM EDT) Creatinine 1.06 0.50 - 1.10 mg/dL LAB CHEMISTRY METHOD 04/20/2025 9:01 PM EDT [facility] eGFR 64 >=60 mL/min/1. 73m2 LAB CHEMISTRY METHOD 04/20/2025 9:01 PM EDT [facility] Comment:Calculation based on the Chronic Kidney Disease Epidemiology Collaboration (CKD-EPI) equation refit without adjustment for race. Blood Venous blood specimen / Unknown Venipuncture / Unknown 04/20/2025 7:33 PM EDT 04/20/2025 8:21 PM EDT Shari VICK LAB BLOOD ORDERABLES Final R esult Performing Organization Address City/[facility]/ZIP Co de Phone Number [facility] [address] [place] [address], [place] [phone] * (ABNORMAL) Urinalysis with reflex microscopic and culture (04/20/2025 6:44 PM EDT) Specific [place] Urine 1.016 1.003 - 1.030 LAB URINALYSIS - AUTOMATED METHOD 04/20/2025 6:59 PM [facility] pH, Urine 6.5 5.0 - 8.0 pH LAB URINALYSIS - AUTOMATED METHOD 04/20/2025 6:59 PM [facility] Leukocytes, Urine Negative Negative LAB URINALYSIS - AUTOMATED METHOD 04/20/2025 6:59 PM [facility] Nitrite, Urine Negative Negative LAB URINALYSIS - AUTOMATED METHOD 04/20/2025 6:59 PM [facility] Protein, Urine Trace <=Trace mg/dL LAB URINALYSIS - AUTOMATED METHOD 04/20/2025 6:59 PM [facility] Glucose, Urine 100(A) Negative mg/dL LAB URINALYSIS - AUTOMATED METHOD 04/20/2025 6:59 PM [facility] Ketones, Urine 15(A) Negative mg/dL LAB URINALYSIS - AUTOMATED METHOD 04/20/2025 6:59 PM [facility] Urobilinogen, Urine 1.0 0.2 - 1.0 mg/dL LAB URINALYSIS - AUTOMATED METHOD 04/20/2025 6:59 PM [facility] Bilirubin, Urine Negative Negative LAB URINALYSIS - AUTOMATED METHOD 04/20/2025 6:59 PM [facility] Blood, Urine Small(A) Negative LAB URINALYSIS - AUTOMATED METHOD 04/20/2025 6:59 PM [facility] RBC, Urine 1.6 0 - 4 /HPF LAB URINALYSIS - AUTOMATED METHOD 04/20/2025 6:59 PM [facility] WBC, Urine 2.0 0 - 4 /HPF LAB URINALYSIS - AUTOMATED METHOD 04/20/2025 6:59 PM EDT [facility] Squamous Epithelial, Urine 18 0 - 60 /LPF LAB URINALYSIS - AUTOMATED METHOD 04/20/2025 6:59 PM EDT [facility] Bacteria, Urine Negative Negative /HPF LAB URINALYSIS - AUTOMATED METHOD 04/20/2025 6:59 PM EDT [facility] Hyaline Casts, Urine 0.4 0 - 3 /LPF LAB URINALYSIS - AUTOMATED METHOD 04/20/2025 6:59 PM EDT [facility] Urine Urine specimen obtained by clean catch procedure / Unknown Non-blood Collection / Unknown 04/20/2025 6:44 PM EDT 04/20/2025 6:52 PM EDT Shari VICK LAB URINE ORDERABLES Final R esult Performing Organization Address City/[facility]/ZIP Co de Phone Number [facility] [address] [place] [address], [place] [phone] * Mccollum urine culture tube (04/20/2025 6:44 PM EDT) Extra Tube Hold for add-ons. 04/20/2025 8:01 PM EDT [facility] Comment:Auto resulted. Urine Urine specimen obtained by clean catch procedure / Unknown Non-blood Collection / Unknown 04/20/2025 6:44 PM EDT 04/20/2025 6:52 PM EDT Shari VICK LAB URINE ORDERABLES Final R esult [facility] [address] [place] [address], [place] [phone] * Tissue exam (04/20/2025 12:30 PM EDT) Final Diagnosis A. Stomach, sleeve gastrectomy: - Gastrointestinal stromal tumor (GIST), spindle cell type. (See GIST tumor synoptic report) - Tumor size: 0.6 cm. - Tumor location: stomach. - Histologic grade: G1. - Mitoses: 0-1 mitosis per 5 mm^2. - Risk assessment: no risk (none). - Margins: all margins are negative for tumor. - Immunohistochemistry: - S100: negative. - CD117: positive in tumor. - Desmin: negative. Note: Dr. Paul Chavez was notified of the diagnosis by Dr. Jesse Morales via [employer] application on 04/21/25 at 1:12 PM. Immunostains for S100, CD117, and desmin were medically necessary for tumor characterization and diagnosis. 5 1:34 PM EDT [facility] at 1334 EDT Synoptic Checklist GASTROINTESTINAL STROMAL TUMOR (GIST): Resection GASTROINTESTINAL STROMAL TUMOR (GIST): RESECTION - All Specimens 8th Edition - Protocol posted: 07/03/2022 CLINICAL Preresection Treatment: No known preresection therapy SPECIMEN Procedure: Resection: sleeve gastrectomy TUMOR Tumor Focality: Unifocal Tumor Site: Stomach: not otherwise specified Histologic Type: Gastrointestinal stromal tumor, spindle cell type Tumor Size: Greatest Dimension (Centimeters): 0.6 cm Mitotic Rate: 1 mitoses per 5 mm2 Histologic Grade: G1, low grade Necrosis: Not identified Treatment Effect: No known presurgical therapy Risk Assessment: None MARGINS Margin Status: All margins negative for GIST Closest Margin(s) to GIST: Cannot be determined: unoriented parenchymal staple margin Distance from GIST to Closest Margin: 1 cm REGIONAL LYMPH NODES Regional Lymph Node Status: Not applicable (no regional lymph nodes submitted or found) pTNM CLASSIFICATION (AJCC 8th Edition) Reporting of pT, pN, and (when applicable) pM categories is based on information available to the pathologist at the time the report is issued. As per the AJCC (Chapter 1, 8th Ed.) it is the managing physician's responsibility to establish the final pathologic stage based upon all pertinent information, including but potentially not limited to this pathology report. pT Category: pT1 pN Category: pN not assigned (no nodes submitted or found) SPECIAL STUDIES Immunohistochemical Studies: KIT (CD117): Positive 5 1:34 PM EDT [facility] Gross Description A. Stomach, : Labeled stomach . Received in formalin is a 15.0 x 4.5 x 3.0 cm pouch of stomach with a linear stapled margin of resection. There is scant attached perigastric adipose tissue. The serosa is pink to red-purple and focally hemorrhagic. Adjacent to the staple lines, approximately 1.0 cm away there is a 0.6 cm in greatest diameter nodule which is confined to the serosa and has white, rubbery cut surfaces. The staple line is removed and inked black. The specimen is opened to show a louis-pink to red mucosa with prominent to flattened rugal folds. There is a small amount of submucosal hemorrhage and blood clot. Polyps and masses are absent. Lymph nodes are absent. The luminal contents consist of red, bilious and bloody material. Oncology Account Specialist sections are submitted in two cassettes. 1-entire nodule to include staple line, taken perpendicularly, two pieces 2-random stomach, two pieces TS 1:34 PM EDT [facility] Disclaimer NOTE: The immunohistochemical tests and in situ hybridization tests were developed and their performance characteristics were determined by [facility]. They have not been cleared or approved by the U.S. Food and Drug Administration. The FDA has determined that such clearance or approval is not necessary. These tests are used for clinical purposes. They should not be regarded as investigational or for research. This laboratory is certified under the Clinical Laboratory Improvement Amendments of 1988 (CLIA) as qualified to perform high complexity clinical laboratory testing. (controls appropriate) Unless otherwise specified, all tissue is 10% NB formalin fixed and paraffin embedded. 1:34 PM EDT [facility] Tissue Stomach structure / Unknown 04/20/2025 12:30 PM EDT 04/20/2025 1:48 PM EDT us Diaz Chavez MD LAB PATHOLOGY ORDERABLES Fin al Result [facility] [address] [place] [address], * TH AN ENDOTRACHEAL(NO CHARGE) (04/20/2025 11:46 AM EDT) Narrative Haroon Pena SRNA - 04/20/2025 11:46 AM EDT Haroon WILLY Pena 04/20/2025 11:47 AM General Information and Staff Patient location during procedure: OR Other anesthesia staff: WILLY Mckeon Performed: resident/INSTALLATION TECHNICIAN/CAA Performed by: WILLY Mckeon Authorized by: Julian Singh MD Intubation Airway not difficult Reason: elective Final Airway Details Successful airway: ETT Cuffed: yes Successful intubation technique: video laryngoscopy Blade: Cele Blade size: #3 ETT size (mm): 7.0 Cormack-Lehane Classification: grade I - full view of glottis Placement verified by: chest auscultation and capnometry Cuff volume (mL): 8 Measured from: lips ETT to lips (cm): 21 Final airway type: endotracheal airway Indications and Patient Condition Indications for airway management: anesthesia Soft Tissue Damage: No Dentition Unchanged: No Patient position: neutral Mask difficulty assessment: 2 - vent by mask + OA or adjuvant +/- NMBA Julian Singh MD ANESTHESIA ORDERABLES Final R esult * POC , urine NO CHARGE screening manually resulted (04/20/2025 9:45 AM EDT) [facility] HCG, Ur POC Negative Negative POC hCG Int QC Pass? Yes Yes Urine Urine specimen obtained by clean catch procedure / Unknown 04/20/2025 9:45 AM EDT Diaz Chavez MD POINT OF CARE TEST ENTER/[place] T ORDERABLES Final Result * (ABNORMAL) Lipid panel with reflex to direct LDL (04/14/2025 12:02 PM EDT) [facility] Cholesterol 188 0 - 200 mg/dL LAB CHEMISTRY METHOD 04/14/2025 10:38 PM EDT [facility] Triglycerides 111 0 - 150 mg/dL LAB CHEMISTRY METHOD 04/14/2025 10:38 PM EDT [facility] HDL 52 >=40 mg/dL LAB CHEMISTRY METHOD 04/14/2025 10:38 PM EDT [facility] LDL Calculated 114(H) 0 - 100 mg/dL LAB CHEMISTRY METHOD 04/14/2025 10:38 PM EDT [facility] Comment:Estimated LDL Calcul ated using equation: Total cholesterol - HDL cholesterol - (Triglycerides/5) VLDL Cholesterol [place] 22.2 mg/dL LAB CHEMISTRY METHOD 04/14/2025 10:38 PM EDT [facility] Non HDL Chol. (LDL+VLDL) 136 <145 mg/dL LAB CHEMISTRY METHOD 04/14/2025 10:38 PM EDT [facility] Chol/HDL Ratio 3.6 0.0 - 4.4 LAB CHEMISTRY METHOD 04/14/2025 10:38 PM EDT [facility] Blood Venous blood specimen / Unknown Venipuncture / Unknown 04/14/2025 12:02 PM EDT 04/14/2025 12:02 PM EDT us Elizabeth Espino MD LAB BLOOD ORDERABLES Final Resu lt [facility] [address] [place] [address], * ECG 12 lead (04/14/2025 11:08 AM EDT) Ventricular Rate ECG 64 BPM GEMUSE Atrial Rate 64 BPM GEMUSE P-R Interval 158 ms GEMUSE QRS Duration 84 ms GEMUSE Q-T Interval 462 ms GEMUSE QTc 476 ms GEMUSE P Wave [place] 78 degrees GEMUSE R [place] 65 degrees GEMUSE T [place] 58 degrees GEMUSE ECG Interpretation Normal sinus rhythm Normal ECG When compared with ECG of 04-APR-2025 13:47, Nonspecific T wave abnormality no longer evident in Anterior leads Confirmed by ELIZABETH ESPINO ([id number]) on 04/14/2025 1:02:19 PM GEMUSE 04/14/2025 11:0 8 AM EDT 04/14/2025 1:02 PM EDT Elizabeth Espino MD ECG ORDERABLES Final Result GEMUSE from Last 3 Months Insurance MEDICAID - [place] [employer] Advance Directives * Full Code - Default (Latest Code Status on File) Date Activated Date Inactivated Comments 04/20/2025 1:05 PM 04/22/2025 1:53 PM This is orde r is used when code status has not been discussed with the patient, or code status is otherwise unknown/unconfirmed To update the patient's code status, place a code status order. Do not modify or discontinue any currently active code status orders. * Full Code - Default Date Activated Date Inactivated Comments 04/20/2025 9:52 AM 04/20/2025 1:05 PM This is ord er is used when code status has not been discussed with the patient, or code status is otherwise unknown/unconfirmed To update the patient's code status, place a code status order. Do not modify or discontinue any currently active code status orders. Care Teams Residential Air Sealing Technician Relationship Specialty Start Date End Date Silvina Douglas FNP [address] [place] [phone] PCP - General Nurse Practitioner 08/26/24
--- OUTSIDE RECORDS SUMMARY | 2025-07-11 18:35 | XMS_ITS | Clinical Summary ---
Author Organization [facility] Address [address] [place] [phone] Phone Care Team Providers Care Micro Lab Analyst Name Role Phone Carmina Colorado MD Primary Care Pro vider Allergies Active Allergy Reactions Criticality Noted Date Comments Clindamycin Rash Low 01/26/2019 Patient reports rash Metronidazole Rash Low 07/10/2016 metronidazole pt reports itchy rash after taking-- Sulfa (Sulfonamide Antibiotics) Hives,Unknown High 07/03/2016 Hemolytic anemia (G6PD deficiency Hemolytic anemia (G6PD deficiency Medications INCRUSE ELLIPTA 62.5 mcg/actuation inhalation INHALE 1 PUFF BY MOUTH EVERY 24 HOURS DOSES SHOULD BE TAKEN AT LEAST 24 HOURS APART 3 Active tiotropium (SPIRIVA WITH HANDIHALER) 18 mcg inhalation capsule INHALE THE CONTENTS OF 1 CAPSULE USING HANDIHALER ONCE A DAY IN THE MORNING 3 Active amLODIPine (NORVASC) 10 MG tablet TAKE 1 TABLET(10 MG) BY MOUTH IN THE MORNING 3 Active buPROPion (WELLBUTRIN) 100 MG immediate release tablet Take 200 mg by mouth every morning. Active BREO ELLIPTA 200-25 mcg/dose inhaler Inhale 1 puff into the lungs daily. 3 Active VENTOLIN HFA 90 mcg/actuation inhaler INHALE 2 PUFFS BY MOUTH FOUR TIMES DAILY NEEDED FOR WHEEZING Active Active Problems Problem Noted Date Diagnosed Date Morbid obesity with BMI of 45.0-49.9, adult 06/21 Assessment & Plan (07/15/2023 4:13 PM EST): This is a 48 YO patient who is interested in weight loss surgery, specifically the sleeve gastrectomy for weight loss. We have discussed gastric bypass and sleeve gastrectomy surgery in detail including risks, benefits, and alternatives. We have also discussed requirements preop and post op. They understands that they are required to lose about 10 percent of their current weight which is 27 lbs. The goal weight at the time of submission to the insurance company will be 242.8 pounds. In an effort to help the patient to lose weight I have prescribed an eating plan which will consist of a protein shake or a protein bar or [place] yogurt or cottage cheese to be consumed at 9 AM and 3 PM daily. The patient will consume 4 ounces of protein with 6 ounces of vegetable or small salad with a noncreamy salad dressing of not more than 2 tablespoons at 12 PM and 6 PM daily. At the 6 PM meal the patient may have 1/2 cup of carbohydrate. We have ordered required labs and testing. The patient will attend 5 nutrition classes, 2 appointments, and dietitian consultation. The patient will need to obtain a medical clearance letter from the primary care doctor prior to submission to the insurance company. The patient will see the dietitian in 2 and 4 weeks and I will follow up with them again in 6 weeks to ensure compliance with the meal plan. The patient will continue current medications as reviewed. They are not stable and are considered morbidly obese. I spent 64 minutes with this patient which also included documentation. Preoperative examination 07/15/2023 Family History Medical History Relation Comments Diabetes type II Father Hypertension Father Breast cancer Maternal Grandmother Graves' disease Mother Cancer Paternal Grandfather Cancer Paternal Grandmother Relation Status Comments Brother 1 Alive Brother 2 Alive Father Alive Maternal Grandmother Mother Alive Paternal Grandfather Paternal Grandmother Sister 1 Alive Sister 2 Alive Social History Tobacco Use Types Packs/Day Years Used Date Smoking Tobacco: Former Cigarettes Q uit: 02/18/2023 Smokeless Tobacco: Never Tobacco Cessation:Counseling Given: Not Answered Alcohol Use Standard Drinks/Week Comments Yes 0 (1 standard drink = 0.6 oz pure alcohol) cognac 3-4 drinks every few months Education Answer Date Recorded Are you interested in more education? Not on yulisa e 06/06/2023 Are you concerned about learning? Not on file 06/06/2023 No 06/06/2023 No 06/06/2023 Digital Access Answer Date Recorded No 06/06/2023 No 06/06/2023 Reliable internet access at home? Not on file 06/06/2023 Device with a working camera? 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 Not on file No t on file Not on file Last Filed Vital Signs Vital Sign Reading Time Taken Comments Blood Pressure 136/87 07/15/2023 3:00 PM EST Pulse 87 07/15/2023 3:00 PM EST Temperature 36.8 C (98.2 F) 07/15/2023 3:00 PM EST Respiratory Rate - - Oxygen Saturation 96% 07/15/2023 3:00 PM EST Inhaled Oxygen Concentration - - Weight 122.4 kg (269 lb 12.8 oz) 07/15/2023 3:00 PM EST Height 160 cm (5' 3 ) 07/15/2023 3:00 PM EST Body Mass Index 47.79 07/15/2023 3:00 PM EST Plan of Treatment Health Maintenance Due Date Last Done Comments DEPRESSION SCREENING 1987 SMOKING Hx and SMOKELESS TOBACCO SCREENING 1988 HEPATITIS C SCREENING 1993 HIV ONE-TIME SCREENING (18-6 5 YEARS) 1993 PAP SMEAR 1996 SCREENING FOR DIABETES 2010 COLOGUARD 2020 COLONOSCOPY 2020 COLORECTAL CANCER SCREENING 2020 FIT TEST 2020 FOBT 2020 SIGMOIDOSCOPY 2020 VIRTUAL COLONOSCOPY 2020 INFLUENZA VACCINE (#1) 2025 2, 05/16/2009, 05/28/2007 PNEUMOCOCCAL VACCINES (50+ years) (2 of 2 - PCV) 2025 08/05/2018 RSV VACCINE (1 - Risk 50-74 years 1-dose series) 2025 ZOSTER VACCINES (1 of 2) 2025 COVID-19 VACCINE (2024-2 6 season) 2025 MAMMOGRAM 04/12/2025 04/12/2023 Adult Td,Tdap Booster 09/02/2027 09/02/2017 LIPID PANEL 12/03/2027 12/02/2022 HEPATITIS A VACCINES Aged Out No long er eligible based on patient's age to complete this topic HIB VACCINES Aged Out No longer eligi ble based on patient's age to complete this topic MENINGOCOCCAL VACCINES (ACWY) Aged Out No longer eligible based on patient's age to complete this topic MENINGOCOCCAL VACCINES (B) Aged Out N o longer eligible based on patient's age to complete this topic Medical Devices Not on file Insurance Care Teams Micro Lab Analyst Relationship Specialty Start Date End Date Carmina Colorado MD [address] [place] [phone] PCP - General Internal Medicine 07/08/23 Additional Source Comments The information contained in this document represents components of the legal health record. It is not the complete legal health record.[facility]
== END 2025-07-11 15:34 | disposition home or self-care (01) ==
LOC: HO.MAMMO 15:33
PROVIDERS: PCP Nurse Practitioner Family; Visit Provider Nurse Practitioner Family
DX: Z12.31 Encounter for screening mammogram for malignant neoplasm of breast (principal)
CPT/HCPCS: 77063; 77067